=== PATIENT | male | born 1955 | race Caucasian/White ===

== ENCOUNTER 2018-01-03 10:03 | Outpatient (CLI) | payer BC, OTHER ==
[~2018-01-03 10:03] MED LIST: ASPI-84 PO; CETI10TA17 PO; KETO-22 PO; LISI10TA2 PO; LOSA100T7 PO; LRT10T PO; ORPH100T PO; TRM50T PO
== END 2018-01-03 10:30 | disposition home or self-care (01) ==
LOC: SLEEP 10:03
PROVIDERS: ATTEND Nurse Practitioner Family
DX: G47.10 Hypersomnia, unspecified (principal); G47.50 Parasomnia, unspecified; J30.2 Other seasonal allergic rhinitis; G47.30 Sleep apnea, unspecified

== ENCOUNTER 2018-01-10 10:00 | Outpatient (CLI) | payer OTHER ==
[~2018-01-10] VITALS: Ht 185.4 cm; Wt 122.5 kg
[2018-01-10] MEDS ORDERED: EMPA1TAB3 PO (10:37)
[2018-01-10] MEDS ORDERED: LOSA100T28 PO (10:37)
[2018-01-10] MEDS ORDERED: CETI10TA17 PO (10:37)
== END 2018-01-10 11:05 | disposition home or self-care (01) ==
LOC: PREOP 10:00
PROVIDERS: ATTEND Internal Medicine
DX: Z01.818 Encounter for other preprocedural examination (principal); R13.10 Dysphagia, unspecified

== ENCOUNTER 2018-10-11 05:31 | Outpatient (CLI) | payer OTHER ==
[~2018-10-11] VITALS: Ht 185.4 cm; Wt 122.5 kg
[~2018-10-11 05:31] MED LIST changes: +EMPA1TAB3 PO; +LOSA100T57 PO
[2018-10-11] MEDS ORDERED: LIFI1DRO OP (11:21)
== END 2018-10-11 11:25 | disposition home or self-care (01) ==
LOC: PREOP 05:31
PROVIDERS: ATTEND Specialist
DX: Z01.818 Encounter for other preprocedural examination (principal)

== ENCOUNTER 2018-10-13 08:19 | Day surgery (SDC) | payer OTHER ==
[~2018-10-13] VITALS: Ht 185.4 cm; Wt 122.5 kg
[~2018-10-13 08:19] MED LIST changes: +LIFI1DRO OP
--- OUTSIDE RECORDS SUMMARY | 2018-10-13 08:22 | XMS REPORT | Continuity of Care Document ---
Author Author [facility] Organization [facility] Address Unknown Phone Unavailable Allergies Active Description Code Type Severity Reaction Onset Reported/Identified Relationship to Patient Clinical Status Yes No Known Drug Allergies [id number] Drug Allergy Unknown N/A 12/11/2010 Medications There is no data. 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 02/04/2013 SMILEY OLGUIN DO Ot 722.52 LUMB/LUMBOSAC DISC DEGEN 02/04/2013 SMILEY OLGUIN DO Ot 782.0 SKIN SENSATION DISTURB 02/04/2013 ELVIRA OLGUIN DOA Aracely Ot 847.0 SPRAIN OF NECK 02/04/2013 ELVIRA OLGUIN DOA K Ot E000.8 OTHER EXTERNAL CAUSE STATUS 02/04/2013 SMILEY OLGUIN DO Ot E029.9 OTHER ACTIVITY 02/04/2013 SMILEY OLGUIN DO Ot E906.8 INJ NEC CAUSED BY ANIMAL 01/03/2018 RUSTAM BENITEZ ANIMAL CARE TECHNICIAN Ot G47.10 HYPERSOMNIA, UNSPECIFIED 01/03/2018 RUSTAM BENITEZ ANIMAL CARE TECHNICIAN Ot G47.30 SLEEP APNEA, UNSPECIFIED 01/03/2018 RUSTAM BENITEZ ANIMAL CARE TECHNICIAN Ot G47.50 PARASOMNIA, UNSPECIFIED 01/03/2018 RUSTAM BENITEZ ANIMAL CARE TECHNICIAN Ot J30.2 OTHER SEASONAL ALLERGIC RHINITIS 01/04/2018 RUSTAM BENITEZ APRN Ot G47.10 HYPERSOMNIA, UNSPECIFIED 01/04/2018 RUSTAM BENITEZ ANIMAL CARE TECHNICIAN Ot G47.30 SLEEP APNEA, UNSPECIFIED 01/04/2018 RUSTAM BENITEZ ANIMAL CARE TECHNICIAN Ot G47.50 PARASOMNIA, UNSPECIFIED 01/04/2018 RUSTAM BENITEZ ANIMAL CARE TECHNICIAN Ot J30.2 OTHER SEASONAL ALLERGIC RHINITIS 01/06/2018 SOHEILA VARGAS, MARCO ANTONIO Arriaga Ot R13.10 DYSPHAGIA, UNSPECIFIED 01/06/2018 SOHEILA VARGAS, MARCO ANTONIO Arriaga Ot Z01.818 ENCOUNTER FOR OTHER PREPROCEDURAL EXAMIN 01/10/2018 SOHEILA VARGAS, MARCO ANTONIO Arriaga Ot R13.10 DYSPHAGIA, UNSPECIFIED 01/10/2018 SOHEILA VARGAS, MARCO ANTONIO Arriaga Ot Z01.818 ENCOUNTER FOR OTHER PREPROCEDURAL EXAMIN 01/10/2018 SOHEILA VARGAS, MARCO ANTONIO Arriaga Ot R13.10 DYSPHAGIA, UNSPECIFIED 01/10/2018 SOHEILA VARGAS, MARCO ANTONIO Arriaga Ot Z01.818 ENCOUNTER FOR OTHER PREPROCEDURAL EXAMIN 01/10/2018 SOHEILA VARGAS, MARCO ANTONIO Arriaga Ot R13.10 DYSPHAGIA, UNSPECIFIED 01/10/2018 SOHEILA VARGAS, MARCO ANTONIO Arriaga Ot Z01.818 ENCOUNTER FOR OTHER PREPROCEDURAL EXAMIN 01/13/2018 SOHEILA VARGAS, MARCO ANTONIO Arriaga Ot E11.9 TYPE 2 DIABETES MELLITUS WITHOUT COMPLIC 01/13/2018 SOHEILA VARGAS, MARCO ANTONIO Arriaga Ot I10 ESSENTIAL (PRIMARY) HYPERTENSION 01/13/2018 SOHEILA VARGAS, MARCO ANTONIO Arriaga Ot K20.9 ESOPHAGITIS, UNSPECIFIED 01/13/2018 MARCO ANTONIO PARNELL MD Ot K44.9 DIAPHRAGMATIC HERNIA WITHOUT OBSTRUCTION 01/13/2018 SOHEILA VARGAS, MARCO ANTONIO Arriaga Ot R13.10 DYSPHAGIA, UNSPECIFIED 01/17/2018 SOHEILA VARGAS, MARCO ANTONIO Arriaga Ot E11.9 TYPE 2 DIABETES MELLITUS WITHOUT COMPLIC 01/17/2018 SOHEILA VARGAS, MARCO ANTONIO Arriaga Ot I10 ESSENTIAL (PRIMARY) HYPERTENSION 01/17/2018 SOHEILA VARGAS, MARCO ANTONIO Arriaga Ot K20.9 ESOPHAGITIS, UNSPECIFIED 01/17/2018 MARCO ANTONIO PARNELL MD Ot K44.9 DIAPHRAGMATIC HERNIA WITHOUT OBSTRUCTION 01/17/2018 MARCO ANTONIO PARNELL MD Ot R13.10 DYSPHAGIA, UNSPECIFIED 02/01/2018 SOHEILA VARGAS, MARCO ANTONIO Arriaga Ot E11.9 TYPE 2 DIABETES MELLITUS WITHOUT COMPLIC 02/01/2018 MARCO ANTONIO PARNELL MD Ot I10 ESSENTIAL (PRIMARY) HYPERTENSION 02/01/2018 MARCO ATNONIO PARNELL MD Ot K20.9 ESOPHAGITIS, UNSPECIFIED 02/01/2018 MARCO ANTONIO PARNELL MD Ot K44.9 DIAPHRAGMATIC HERNIA WITHOUT OBSTRUCTION 02/01/2018 MARCO ANTONIO PARNELL MD Ot R13.10 DYSPHAGIA, UNSPECIFIED 10/11/2018 MAURICIO VARGAS, AMANDEEP Phillips Ot Z01.818 ENCOUNTER FOR OTHER PREPROCEDURAL EXAMIN 10/12/2018 AMANDEEP MARTÍNEZ MD Ot Z01.818 ENCOUNTER FOR OTHER PREPROCEDURAL EXAMIN Procedures There is no data. Results Test Result Range Capillary blood glucose measurement by glucometer (mass/volume) - 01/13/18 07: 15 Capillary blood glucose measurement by glucometer (mass/volume) 127 mg/dL 70-110 Encounters ACCT No. Visit Date/Time Discharge Status Pt. Type Provider Facility Loc./Unit Complaint [id number] 01/13/2018 06:53:00 01/13/2018 09:25:00 DIS Outpatient MARCO ANTONIO PARNELL MD [facility] ENDO DYSPHAGIA [id number] 01/10/2018 10:00:00 01/10/2018 11:05:00 DIS Outpatient MARCO ANTONIO PARNELL MD [facility] PREOP EGD [id number] 01/03/2018 10:03:00 01/03/2018 10:30:00 DIS Outpatient RUSTAM BENITEZ APRN [facility] SLEEP HYPERSOMNIA [id number] 02/04/2013 10:02:00 02/04/2013 12:51:00 DIS Emergency SHARIF DO, SMILEY K [facility] ER RUN OVER BY CALF LOST FEELING IN ARMS AND LEGS [id number] 10/13/2018 08:19:00 ACT Outpatient AMANDEEP MARTÍNEZ MD [facility] SDC CATARACT RIGHT [id number] 10/11/2018 05:31:00 ACT Outpatient AMANDEEP MARTÍNEZ MD [facility] PREOP CATARACT RIGHT
--- OUTSIDE RECORDS SUMMARY | 2018-10-13 08:22 | XMS REPORT | Continuity of Care Document ---
Author Author [facility] Organization [facility] Address Unknown Phone Unavailable Care Team Providers Care Pack Operator Name Role Phone MARCO ANTONIO PARNELL MD PP Insurance Providers Payer Name Policy Number Subscriber Name Relationship [facility] [id number] Nolberto Conley 01 Self / Same As Patient Advance Directives Directive Response Recorded Date Advance Directives Y 02/04/13 10:12am Health Care Power of Sales Assoc Y 02/04/13 10:12am Organ Donor Y 02/04/13 10:12am Problems No Known Problems or Medical conditions. Social History History Response Recorded Date/Time Alcohol Use Occasionally Uses 02/04/13 10 :59am Recreational Drug Use N 02/04/13 10:12am Allergies, Adverse Reactions, Alerts Allergen Type Severity Reaction Last Updated No Known Drug Allergies 12/11/10 Medications Medication Dose Units Route Sig Qty Days Tramadol HCl (Ultram) 50 Mg PO Q4-6HOURS PRN 20 Ketorolac Tromethamine (Toradol) 10 Mg PO Q6H PRN 15 Orphenadrine Citrate (Norflex) 100 Mg PO BID 15 Cetirizine HCl (Cetirizine Hcl) 10 Mg PO DAILY Losartan Potassium 100 Mg PO DAILY Aspirin (Pierre) 81 Mg PO DAILY Ketorolac Tromethamine (Toradol) 10 Mg PO Q8H PRN 14 Loratadine (Claritin) 10 Mg PO DAILY Lisinopril 10 Mg PO DAILY Immunizations Name Given Type DTaP 02/04/13 A Response Recorded Date/Time Status not known Unknown Results No Known Relevant Diagnostic Tests, Laboratory Data and/or Discharge Summary. Procedures Procedure Code Date LESION REMOVAL COLONOSCOPY 64453 Encounters Encounter Location Date/Time Departed Emergency [facility] 10:02am
[2018-10-13] MEDS ORDERED: POVIDONE (BETADINE) OPHTH SOLN 5% 30 ML OP ONE (08:30)
[2018-10-13] MEDS ORDERED: LIDOCAINE PF 1% 2 ML AMP IR PRN (08:30)
[2018-10-13] MEDS ORDERED: MOXIFLOXACIN OPHTH SOLN 5 MG/ML 0.3 ML SYRINGE OP ONE (08:30)
[2018-10-13] MEDS ORDERED: TIMOLOL MALEATE 0.5% 5 ML (TIMOPTIC) BTL OU PRN (08:30)
[2018-10-13] MEDS: TETRACAINE 0.5% OPHTH SOLN 4 ML BTL (SINGLE DOSE ONLY) OU PRN ×4 (08:37→08:54)
[2018-10-13 08:41] VITALS: BP 125/85
[2018-10-13] MEDS: PHENYLEPHRINE 10% OPHTH (NEO-SYN) 5 ML BTL OU SCH ×3 (08:43→08:54)
[2018-10-13] MEDS: CYCLOPENTOLATE 1% (CYCLOGYL) 2 ML DROPS OP SCH ×3 (08:43→08:54)
--- NOTE | 2018-10-13 09:26 | Ophthalmologist Pre-Op Note ---
Pre-Operative Progress Note H&P Reviewed The H&P was reviewed, patient examined and no changes noted. Date H&P Reviewed: Oct 13, 2018 Time H&P Reviewed: 09:26 Pre-Op Dx Cataract, Right Eye AMANDEEP MARTÍNEZ MD Oct 13, 2018 09:26
[2018-10-13] MEDS ORDERED: MIDAZOLAM 2 MG/2 ML (VERSED) VIAL ONE (09:34)
[2018-10-13] MEDS ORDERED: acetaZOLAMIDE ER 500 MG CAP (DIAMOX SEQUELS) PO ONE (10:00)
--- NOTE | 2018-10-13 10:09 | Ophthalmology Operative Report ---
Cataract removal/placement IOL PREOPERATIVE DIAGNOSIS: Cataract Right Eye POSTOPERATIVE DIAGNOSIS: Cataract Right Eye PROCEDURE: Cataract removal and placement of posterior chamber implant, right eye SURGEON: Joseph Martínez ANESTHESIA: Topical with sedation COMPLICATIONS: None ESTIMATED BLOOD LOSS: Minimal DESCRIPTION OF PROCEDURE: After proper informed consent was obtained, the patient, a 63 male, was taken to the Operating Room and the right eye was anesthetized with tetracaine. The right eye was then prepped and draped in the usual manner. A wire lid speculum was placed. A paracentesis was made at the left hand position. Preservative free lidocaine was injected into the anterior chamber followed by viscoelastic. A clear corneal incision was made in the temporal position. A capsulorrhexis was preformed and the central nuclear and cortical material were removed. The posterior capsule was polished and Aaron [id number] 15.5 IOL was placed into the capsular bag. The residual viscoelastic was aspirated and balanced saline solution was injected into the anterior chamber. Moxifloxacin was injected into the anterior chamber. The wound was checked and found to be water tight. The patient tolerated the procedure well without complications. JOSEPH MARTÍNEZ MD Oct 13, 2018 10:09
[2018-10-13 10:17] VITALS: BP 133/78
--- NOTE | 2018-10-13 10:17 | Anesthesia-General Post-Op ---
MAC Patient Condition Mental Status/LOC: Same as Preop Cardiovascular: Satisfactory Nausea/Vomiting: Absent Respiratory: Satisfactory Pain: Controlled Complications: Absent Post Op Complications Complications None Follow Up Care/Instructions Patient Instructions None needed. Anesthesiology Discharge Order Discharge Order Patient is doing well, no complaints, stable vital signs, no apparent adverse anesthesia problems. No complications reported per nursing. DANNY CRONIN CRNA Oct 13, 2018 10:17
== END 2018-10-13 10:17 | disposition home or self-care (01) ==
LOC: SDC 08:19
PROVIDERS: ATTEND Specialist
DX: H25.11 Age-related nuclear cataract, right eye (principal); E11.36 Type 2 diabetes mellitus with diabetic cataract; E11.41 Type 2 diabetes mellitus with diabetic mononeuropathy; I10 Essential (primary) hypertension; G47.33 Obstructive sleep apnea (adult) (pediatric); Z79.899 Other long term (current) drug therapy

== ENCOUNTER 2018-11-08 05:41 | Outpatient (CLI) | payer OTHER | END 2018-11-08 16:00 | disposition home or self-care (01) | LOC: PREOP 05:41 | PROVIDERS: ATTEND Specialist | DX: Z01.818 Encounter for other preprocedural examination (principal) ==

== ENCOUNTER 2018-11-10 08:26 | Day surgery (SDC) | payer OTHER ==
[~2018-11-10] VITALS: Ht 185.4 cm; Wt 122.5 kg
[2018-11-10 08:30] VITALS: BP 123/75
[2018-11-10] MEDS: TETRACAINE 0.5% OPHTH SOLN 4 ML BTL (SINGLE DOSE ONLY) OU PRN ×4 (08:40→09:08)
[2018-11-10] MEDS ORDERED: TIMOLOL MALEATE 0.5% 5 ML (TIMOPTIC) BTL OU PRN (08:45)
[2018-11-10] MEDS ORDERED: LIDOCAINE PF 1% 2 ML AMP IR PRN (08:45)
[2018-11-10] MEDS ORDERED: MOXIFLOXACIN OPHTH SOLN 5 MG/ML 0.3 ML SYRINGE OP ONE (08:45)
[2018-11-10] MEDS ORDERED: POVIDONE (BETADINE) OPHTH SOLN 5% 30 ML OP ONE (08:45)
[2018-11-10] MEDS: CYCLOPENTOLATE 1% (CYCLOGYL) 2 ML DROPS OP SCH ×3 (08:51→09:08)
[2018-11-10] MEDS: PHENYLEPHRINE 10% OPHTH (NEO-SYN) 5 ML BTL OU SCH ×3 (08:51→09:08)
[2018-11-10] MEDS ORDERED: MIDAZOLAM 2 MG/2 ML (VERSED) VIAL ONE (09:08)
--- NOTE | 2018-11-10 09:15 | Ophthalmologist Pre-Op Note ---
Pre-Operative Progress Note H&P Reviewed The H&P was reviewed, patient examined and no changes noted. Date H&P Reviewed: Nov 10, 2018 Time H&P Reviewed: 09:14 Pre-Op Dx Cataract, Left Eye AMANDEEP MARTÍNEZ MD Nov 10, 2018 09:15
--- NOTE | 2018-11-10 09:48 | Ophthalmology Operative Report ---
Cataract removal/placement IOL PREOPERATIVE DIAGNOSIS: Cataract Left Eye POSTOPERATIVE DIAGNOSIS: Cataract Left Eye PROCEDURE: Cataract removal and placement of posterior chamber implant, left eye SURGEON: Joseph Martínez ANESTHESIA: Topical with sedation COMPLICATIONS: None ESTIMATED BLOOD LOSS: Minimal DESCRIPTION OF PROCEDURE: After proper informed consent was obtained, the patient, a 63 male, was taken to the Operating Room and the left eye was anesthetized with tetracaine. The left eye was then prepped and draped in the usual manner. A wire lid speculum was placed. A paracentesis was made at the left hand position. Preservative free lidocaine was injected into the anterior chamber followed by viscoelastic. A clear corneal incision was made in the temporal position. A capsulorrhexis was preformed and the central nuclear and cortical material were removed. The posterior capsule was polished and an Aaron [id number] 15.5 was placed into the capsular bag. The residual viscoelastic was aspirated and balanced saline solution was injected into the anterior chamber. Moxifloxacin was injected into the anterior chamber. The wound was checked and found to be water tight. The patient tolerated the procedure well without complications. JOSEPH MARTÍNZE MD Nov 10, 2018 09:48
[2018-11-10 09:55] VITALS: BP 124/83
[2018-11-10] MEDS ORDERED: acetaZOLAMIDE ER 500 MG CAP (DIAMOX SEQUELS) PO ONE (10:00)
--- OUTSIDE RECORDS SUMMARY | 2018-11-10 10:14 | XMS REPORT | Continuity of Care Document ---
Author Organization Unknown Address Unknown Allergies Active Description Code Type Severity Reaction Onset Reported/Identified Relationship to Patient Clinical Status Yes No Known Drug Allergies [id number] Drug Allergy Unknown N/A 12/11/2010 Medications There is no data. 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 02/04/2013 SMILEY OLGUIN DO Ot 722.52 LUMB/LUMBOSAC DISC DEGEN 02/04/2013 SMILEY OLGUIN DO Ot 782.0 SKIN SENSATION DISTURB 02/04/2013 SMILEY OLGUIN DO Ot 847.0 SPRAIN OF NECK 02/04/2013 SMILEY OLGUIN DO Ot E000.8 OTHER EXTERNAL CAUSE STATUS 02/04/2013 SMILEY OLGUIN DO Ot E029.9 OTHER ACTIVITY 02/04/2013 SMILEY OLGUIN DO Ot E906.8 INJ NEC CAUSED BY ANIMAL 01/03/2018 RUSTAM BENITEZ APRN Ot G47.10 HYPERSOMNIA, UNSPECIFIED 01/03/2018 RUSTAM BENITEZ APRN Ot G47.30 SLEEP APNEA, UNSPECIFIED 01/03/2018 RUSTAM BENITEZ APRN Ot G47.50 PARASOMNIA, UNSPECIFIED 01/03/2018 RUSTAM BENITEZ APRN Ot J30.2 OTHER SEASONAL ALLERGIC RHINITIS 01/04/2018 RUSTAM BENITEZ APRN Ot G47.10 HYPERSOMNIA, UNSPECIFIED 01/04/2018 RUSTAM BENITEZ APRN Ot G47.30 SLEEP APNEA, UNSPECIFIED 01/04/2018 RUSTAM BENITEZ APRN Ot G47.50 PARASOMNIA, UNSPECIFIED 01/04/2018 RUSTAM BENITEZ APRN Ot J30.2 OTHER SEASONAL ALLERGIC RHINITIS 01/06/2018 [...] ANTONIO Arriaga Ot K20.9 ESOPHAGITIS, UNSPECIFIED 01/13/2018 SOHEILA VARGAS, MARCO ANTONIO Arriaga Ot K44.9 DIAPHRAGMATIC HERNIA WITHOUT OBSTRUCTION 01/13/2018 SOHEILA VARGAS, MARCO ANTONIO Arriaga Ot R13.10 DYSPHAGIA, UNSPECIFIED 01/17/2018 SOHEILA VARGAS, MARCO ANTONIO Arriaga Ot E11.9 TYPE 2 DIABETES MELLITUS WITHOUT COMPLIC 01/17/2018 SOHEILA VARGAS, MARCO ANTONIO Arriaga Ot I10 ESSENTIAL (PRIMARY) HYPERTENSION 01/17/2018 SOHEILA VARGAS, MARCO ANTONIO Arriaga Ot K20.9 ESOPHAGITIS, UNSPECIFIED 01/17/2018 SOHEILA VARGAS, MARCO ANTONIO Arriaga Ot K44.9 DIAPHRAGMATIC HERNIA WITHOUT OBSTRUCTION 01/17/2018 SOHEILA VARGAS, MARCO ANTONIO Arriaga Ot R13.10 DYSPHAGIA, UNSPECIFIED 02/01/2018 SOHEILA VARGAS, MARCO ANTONIO Arriaga Ot E11.9 TYPE 2 DIABETES MELLITUS WITHOUT COMPLIC 02/01/2018 SOHEILA VARGAS, MARCO ANTONIO Arriaga Ot I10 ESSENTIAL (PRIMARY) HYPERTENSION 02/01/2018 SOHEILA VARGAS, MARCO ANTONIO Arriaga Ot K20.9 ESOPHAGITIS, UNSPECIFIED 02/01/2018 SOHEILA VARGAS, MARCO ANTONIO Arriaga Ot K44.9 DIAPHRAGMATIC HERNIA WITHOUT OBSTRUCTION 02/01/2018 SOHEILA VARGAS, MARCO ANTONIO Arriaga Ot R13.10 DYSPHAGIA, UNSPECIFIED 10/11/2018 MAURICIO VARGAS, AMANDEEP Phillips Ot Z01.818 ENCOUNTER FOR OTHER PREPROCEDURAL EXAMIN 10/12/2018 AMANDEEP MARTÍNEZ MD Ot Z01.818 ENCOUNTER FOR OTHER PREPROCEDURAL EXAMIN 10/13/2018 AMANDEEP MARTÍNEZ MD Ot E11.36 TYPE 2 DIABETES MELLITUS WITH DIABETIC C 10/13/2018 AMANDEEP MARTÍNEZ MD Ot E11.41 TYPE 2 DIABETES MELLITUS WITH DIABETIC M 10/13/2018 AMANDEEP MARTÍNEZ MD Ot G47.33 OBSTRUCTIVE SLEEP APNEA (ADULT) (PEDIATR 10/13/2018 AMANDEEP MARTÍNEZ MD Ot H25.11 AGE-RELATED NUCLEAR CATARACT, RIGHT EYE 10/13/2018 AMANDEEP MARTÍNEZ MD Ot I10 ESSENTIAL (PRIMARY) HYPERTENSION 10/13/2018 AMANDEEP MARTÍNEZ MD Ot Z79.899 OTHER ANAESTHETIC TECHNICIAN (CURRENT) DRUG THERAPY 10/16/2018 AMANDEEP MARTÍNEZ MD Ot E11.36 TYPE 2 DIABETES MELLITUS WITH DIABETIC C 10/16/2018 AMANDEEP MARTÍNEZ MD Ot E11.41 TYPE 2 DIABETES MELLITUS WITH DIABETIC M 10/16/2018 AMANDEEP MARTÍNEZ MD Ot G47.33 OBSTRUCTIVE SLEEP APNEA (ADULT) (PEDIATR 10/16/2018 AMANDEEP MARTÍNEZ MD Ot H25.11 AGE-RELATED NUCLEAR CATARACT, RIGHT EYE 10/16/2018 AMANDEEP MARTÍNEZ MD Ot I10 ESSENTIAL (PRIMARY) HYPERTENSION 10/16/2018 AMANDEEP MARTÍNEZ MD Ot Z79.899 OTHER SHELTER (CURRENT) DRUG THERAPY 11/08/2018 AMANDEEP MARTÍNEZ MD Ot Z01.818 ENCOUNTER FOR OTHER PREPROCEDURAL EXAMIN Procedures There is no data. Results Test Result Range Capillary blood glucose measurement by glucometer (mass/volume) - 01/13/18 07: 15 Capillary blood glucose measurement by glucometer (mass/volume) 127 mg/dL 70-110 Encounters ACCT No. Visit Date/Time Discharge Status Pt. Type Provider Facility Loc./Unit Complaint [id number] 11/08/2018 05:41:00 11/08/2018 16:00:00 DIS Outpatient AMANDEEP MARTÍNEZ MD [facility] PREOP CATARACT LEFT [id number] 10/13/2018 08:19:00 10/13/2018 23:59:59 CLS Outpatient AMANDEEP MARTÍNEZ MD [facility] SDC CATARACT RIGHT [id number] 10/11/2018 05:31:00 10/11/2018 23:59:59 CLS Outpatient AMANDEEP MARTÍNEZ MD [facility] PREOP CATARACT RIGHT [id number] 01/13/2018 06:53:00 01/13/2018 09:25:00 DIS Outpatient MARCO ANTONIO PARNELL MD [facility] ENDO DYSPHAGIA [id number] 01/10/2018 10:00:00 01/10/2018 11:05:00 DIS Outpatient MARCO ANTONIO PARNELL MD [facility] PREOP EGD [id number] 01/03/2018 10:03:00 01/03/2018 10:30:00 DIS Outpatient RUSTAM BENITEZ APRN [facility] SLEEP HYPERSOMNIA [id number] 02/04/2013 10:02:00 02/04/2013 12:51:00 DIS Emergency SHARIF SMILEY CHRISTIANSON [facility] ER RUN OVER BY CALF LOST FEELING IN ARMS AND LEGS [id number] 11/10/2018 08:26:00 ACT Outpatient [facility]
--- NOTE | 2018-11-10 12:12 | Anesthesia-General Post-Op ---
MAC Patient Condition Mental Status/LOC: Same as Preop Cardiovascular: Satisfactory Nausea/Vomiting: Absent Respiratory: Satisfactory Pain: Controlled Complications: Absent Post Op Complications Complications None Follow Up Care/Instructions Patient Instructions None needed. Anesthesiology Discharge Order Discharge Order Patient is doing well, no complaints, stable vital signs, no apparent adverse anesthesia problems. No complications reported per nursing. DANNY CRONIN CRNA Nov 10, 2018 12:12
== END 2018-11-10 09:55 | disposition home or self-care (01) ==
LOC: SDC 08:26
PROVIDERS: ATTEND Specialist
DX: H25.12 Age-related nuclear cataract, left eye (principal); E11.36 Type 2 diabetes mellitus with diabetic cataract; E11.41 Type 2 diabetes mellitus with diabetic mononeuropathy; G47.33 Obstructive sleep apnea (adult) (pediatric); Z79.899 Other long term (current) drug therapy

== ENCOUNTER → 2022-09-13 | Outpatient (CLI) | payer OTHER | LOC: CARD 11:30 | PROVIDERS: ATTEND Internal Medicine | DX: R55 Syncope and collapse (principal); E11.9 Type 2 diabetes mellitus without complications | CPT/HCPCS: 93005 ==

== ENCOUNTER 2022-10-28 12:45 | Outpatient (CLI) | payer MEDICARE, OTHER ==
[~2022-10-28] VITALS: Ht 182.9 cm; Wt 104.5 kg
[2022-10-28] MEDS ORDERED: LOSA25TA41 PO (13:20)
[2022-10-28] MEDS ORDERED: EMPA25TA PO (13:20)
[2022-10-28] MEDS ORDERED: PREG75CA PO (13:20)
[2022-10-28] MEDS ORDERED: DULA1.5P2 SQ (13:20)
[2022-10-28 14:01] LABS: BILIRUBIN,URINE NEGATIVE (NEGATIVE); CLARITY,URINE CLEAR; COLOR,URINE YELLOW; GLUCOSE, URINE (UA) 3+ (NEGATIVE); KETONES,URINE NEGATIVE (NEGATIVE); LEUKOCYTE ESTERASE ,URINE NEGATIVE (NEGATIVE); NITRITE,URINE NEGATIVE (NEGATIVE); PROTEIN,URINE NEGATIVE (NEGATIVE)
[2022-10-28 14:02] LABS: BASOPHILS # (AUTO) 0.1 10^3/uL (0.0-0.1); BASOPHILS % (AUTO) 1 % (0-10); EOSINOPHILS # (AUTO) 0.3 10^3/uL (0.0-0.3); EOSINOPHILS % (AUTO) 3 % (0-10); HEMATOCRIT 51 % (40-54); HEMOGLOBIN 17.8 g/dL (13.3-17.7); LYMPHOCYTES # (AUTO) 2.3 10^3/uL (1.0-4.0); LYMPHOCYTES % (AUTO) 26 % (12-44); MEAN CORPUSCULAR HEMOGLOBIN 30 pg (25-34); MEAN CORPUSCULAR HGB CONC 35 g/dL (32-36); MEAN CORPUSCULAR VOLUME 86 fL (80-99); MEAN PLATELET VOLUME 9.4 fL (9.0-12.2); MONOCYTES # (AUTO) 0.6 10^3/uL (0.0-1.0); MONOCYTES % (AUTO) 7 % (0-12); NEUTROPHILS # (AUTO) 5.7 10^3/uL (1.8-7.8); NEUTROPHILS % (AUTO) 63 % (42-75); PLATELET COUNT 233 10^3/uL (130-400); WHITE BLOOD COUNT 9.1 10^3/uL (4.3-11.0)
[2022-10-28 14:04] VITALS: BP 130/86
[2022-10-28 14:09] LABS: BACTERIA,URINE TRACE /HPF; SQUAMOUS EPITHELIAL CELL,UR 0-2 /HPF
[2022-10-28 14:10] LABS: ALBUMIN 4.4 GM/DL (3.2-4.5); POTASSIUM 3.8 MMOL/L (3.6-5.0)
[2022-10-28 14:11] LABS: CALCIUM 9.9 MG/DL (8.5-10.1)
[2022-10-28 14:12] LABS: TOTAL PROTEIN 7.4 GM/DL (6.4-8.2)
[2022-10-28 14:14] LABS: BILIRUBIN,TOTAL 1.7 MG/DL (0.1-1.0)
[2022-10-28 14:16] LABS: CREATININE SERUM 0.86 MG/DL (0.60-1.30)
[2022-10-28 14:33] LABS: PROTHROMBIN TIME PATIENT 13.8 SEC (12.2-14.7)
[2022-10-28 14:41] LABS: ERYTHROCYTE SEDIMENTATION RATE 1 MM/HR (0-30)
--- NOTE | 2022-10-28 16:01 | Diagnostic Imaging Report ---
INDICATION: Preop for knee replacement. PA and lateral chest obtained at 2:01 p.m. Heart and mediastinal silhouette are normal in appearance. The lungs are clear. There is no pneumothorax or pleural fluid. IMPRESSION: Negative chest. Dictated by: Dictated on workstation # [id number]
== END 2022-10-28 16:42 ==
LOC: PREOP 12:45
PROVIDERS: ATTEND Orthopaedic Surgery
DX: Z01.818 Encounter for other preprocedural examination (principal); M17.11 Unilateral primary osteoarthritis, right knee
CPT/HCPCS: 36415; 71046; 80053; 81000; 85025; 85610; 85652; 86850; 86900; 86901; 87081

== ENCOUNTER 2022-11-03 06:00 | Inpatient (IN) | payer OTHER, MEDICARE ==
--- NOTE | 2022-10-28 08:17 | HISTORY AND PHYSICAL ---
DATE OF SERVICE: 11/03/2022 This will be for inpatient admission on 11/03/2022 for right total knee arthroplasty. The patient will require regular inpatient admission due to pain control issues and need for physical therapy and gait abnormalities. HISTORY: The patient is a 67-year-old gentleman with longstanding progressive knee pain. He reports right worse than left knee +pain. Radiographs reveal severe medial and patellofemoral arthrosis. He has undergone treatment with injections as well as arthroscopy without relief. Due to functional impairment and failure to improve with conservative measures, the patient elected to proceed with surgical intervention. REVIEW OF SYSTEMS: No chest pain, no shortness of breath. No dysuria. PAST MEDICAL HISTORY: Neck degenerative disk disease, bilateral knee arthritis. PAST SURGICAL HISTORY: Bilateral knee arthroscopy, cervical fusion, eye surgery, ear surgery. FAMILY HISTORY: Unknown. PRIMARY CARE PROVIDER: Dr. Bustillos. MEDICATIONS: Losartan, Jardiance, Claritin, and Trulicity. PAST MEDICAL HISTORY: Significant for hypertension and diabetes. ALLERGIES: NO KNOWN DRUG ALLERGIES. SOCIAL HISTORY: The patient denies alcohol or tobacco use. PHYSICAL EXAMINATION: GENERAL: The patient is well-developed, well-nourished, in no acute distress. HEENT: Normocephalic, atraumatic. Pupils equal, round, react to light. Oropharynx is clear. NECK: Supple. No lymphadenopathy. LUNGS: Clear to auscultation bilaterally. HEART: Regular rate and rhythm. ABDOMEN: Soft, nontender, nondistended. EXTREMITIES: The right knee demonstrates range of motion 0/5/120. There is no varus or valgus laxity. Negative anterior and posterior drawer. There is a slight effusion. There is no erythema or warmth. IMPRESSION: Severe right knee osteoarthritis, unresponsive to conservative measures. PLAN: Right total knee arthroplasty. The risks, benefits, options, ramifications and recovery have been discussed at length with the patient. He understands and wishes to proceed. This will be for inpatient admission on 11/03/2022. Job ID: [id number] DocumentID: [id number] Dictated Date: 10/18/2022 09:55:07 Director Law Enforcement Date: 10/18/2022 11:09:00 Dictated By: GOLD WHITNEY MD
[~2022-11-03] VITALS: Ht 182.9 cm; Wt 110.6 kg
[2022-11-03] VITALS (8 sets, daily range): BP systolic 112–139; BP diastolic 58–86
[~2022-11-03 06:00] MED LIST changes: +DULA1.5P2 SQ; +EMPA25TA PO; +LOSA25TA41 PO; +PREG75CA PO
[2022-11-03] MEDS ORDERED: CEFUROXIME 1.5 GM/15 ML (ZINACEF) VIAL ONE (06:42)
[2022-11-03] MEDS ORDERED: NS (IVPB) 50 ML ONE (06:43)
[2022-11-03] MEDS ORDERED: BUPIVACAINE 0.5% 30 ML (SENSORCAINE) VIAL ONE (07:10)
[2022-11-03] MEDS ORDERED: PROPOFOL INJECTION 0 ML IV ONE (07:10)
[2022-11-03] MEDS ORDERED: MIDAZOLAM 2 MG/2 ML (VERSED) VIAL ONE (07:10)
[2022-11-03] MEDS ORDERED: ONDANSETRON 4 MG/2 ML (SDV) Z0FRAN IVP PRN ×2 (07:15→10:00)
[2022-11-03] MEDS ORDERED: diphenhydrAMINE 50 MG/ML INJ (BENADRYL) IVP PRN (07:15)
[2022-11-03] MEDS ORDERED: morphine PCA 100 MG/100 ML BAG IV PRN (07:15)
[2022-11-03] MEDS ORDERED: NALOXONE 0.4 MG/ML 1 ML (NARCAN) VIAL IV PRN (07:15)
[2022-11-03] MEDS ORDERED: INTRA-ARTICULAR IU ONE ×5 (07:30)
--- NOTE | 2022-11-03 07:38 | Progress Note-Post Operative ---
Post-Operative Progess Note Surgeon (s)/Icer Air Conditioning (s) Surgeon GOLD WHITNEY MD [employer]ing: Farhan Kim Pre-Operative Diagnosis right knee primary osteoarthritis Post-Operative Diagnosis right knee primary osteoarthritis Procedure & Operative Findings Date of Procedure 11/03/22 Procedure Performed/Findings right total knee arthroplasty Anesthesia Type spinal Estimated Blood Loss Estimated blood loss (mL): minimal Specimens/Packing Specimens Removed none Packing: none GOLD WHITNEY MD Nov 03, 2022 07:38
--- NOTE | 2022-11-03 07:38 | Progress Note-Pre Operative ---
Pre-Operative Progress Note Date of Available H&P: Oct 18, 2022 Date H&P Reviewed: Nov 03, 2022 Time H&P Reviewed: 07:11 Changes from last HP none Pre-Operative Diagnosis: right knee primary osteoarthritis GOLD WHITNEY MD Nov 03, 2022 07:38
--- NOTE | 2022-11-03 07:40 | D/C HH Face to Face Order ---
D/C Face to Face Orders Reconcile Patient Problems Problems Reviewed?: Yes Instructions for Patient [facility], Patient Instructions/FollowUp: three weeks Physician to follow Patient: three weeks Discharge Diet for Home: Regular Diet Patient Data-Allergies,Ht & Wt Patient Allergies: Coded Allergies: No Known Drug Allergies (Unverified , 10/28/22) Height (Feet): 6 Height (Inches): 1.00 Weight (Pounds): 270 Weight (Ounces): 0.0 Home Health Need/Face to Face Date of Face to Face: Nov 03, 2022 Clinical Findings: Muscle weakness, Pain with ambulation, Unsteady gait I have seen Pt [id number]: Yes Discharged To: Home Diagnosis/Conditions: right total knee arthroplasty Patient is Homebound due to: Muscle weakness, Pain w/ambulation Homebound Status Due to the above stated illness, injury or surgical procedure (medical condition or diagnosis) and associated clinical findings, the patient is homebound because of his/her inability to leave home except with aid of a supportive device and/or person AND leaving the home requires a considerable and taxing effort or is medically contraindicated. Pt req the following assistanc: [facility] Nursing Orders Home Health Services Order: Physical Therapy-Evaluate & Treat DC right knee see and apply steri strips on 11/17/22 Therapy Orders Therapy Orders: Physical Therapy, PT to assess for OT Therapy Specific Orders: Eval assistive deivces, Teach enviro modifications/safety, Gait training, Increase strength/endurance, Provider maintenance therapy, Restore ROM Certify Stmt I certify that this patient is under my care and that I, a nurse practitioner or a physician; a assistant store director working with me, had a face to face encounter that - meets the physician face to face encounter requirements with this patient as dated. GOLD WHITNEY MD Nov 03, 2022 07:40
[2022-11-03] MEDS ORDERED: fentaNYL INJ 100 MCG/2 ML AMP ONE (08:16)
[2022-11-03] MEDS ORDERED: SEVOFLURANE (ULTANE) 15 ML INHAL SOLN ONE ×2 (08:24→09:45)
[2022-11-03] MEDS ORDERED: ONDANSETRON 4 MG/2 ML (SDV) Z0FRAN ONE (08:24)
[2022-11-03] MEDS ORDERED: TRANEXAMIC ACID 100 MG/ML 10 ML INJECTION ONE (08:33)
--- NOTE | 2022-11-03 09:57 | Anesthesia-General Post-Op ---
General Patient Condition Mental Status/LOC: Same as Preop Cardiovascular: Satisfactory Nausea/Vomiting: Absent Respiratory: Satisfactory Pain: Controlled Complications: Absent Post Op Complications Complications None Follow Up Care/Instructions Patient Instructions None needed. Anesthesia/Patient Condition Patient Condition Patient is doing well, no complaints, stable vital signs, no apparent adverse anesthesia problems. No complications reported per nursing. NOEL COLEMAN CRNA Nov 03, 2022 09:57
[2022-11-03] MEDS ORDERED: morphine INJ 10 MG/ML 1ML (SYR OR VIAL) IVP ONE (10:00)
[2022-11-03] MEDS ORDERED: HYDROmorphone 2 MG/ML VIAL (DILAUDID) IV ONE (10:00)
[2022-11-03] MEDS ORDERED: MEPERIDINE (DEMEROL) INJ 50 MG/ML IVP ONE (10:00)
[2022-11-03] MEDS ORDERED: PROMETHAZINE INJ 25 MG/ML (PHENERGAN) AMP IVP ONE (10:00)
[2022-11-03] MEDS ORDERED: ROPIVACAINE 5MG/ML 30ML VIAL ONE (10:09)
[2022-11-03] MEDS ORDERED: HYDROmorphone 2 MG/ML VIAL (DILAUDID) ONE (10:12)
[2022-11-03] MEDS ORDERED: MEPERIDINE (DEMEROL) INJ 50 MG/ML ONE (10:23)
[2022-11-03] MEDS: oxyCODONE/APAP 5/325MG (PERCOCET 5) TABLET PO PRN ×3 (11:46→20:18)
[2022-11-03] MEDS: SENNA W/DOCUSATE (SENOKOT S) TABLET PO SCH ×2 (11:46→20:18)
[2022-11-03] MEDS: NS IV 1000 ML 1,000 ML IV SCH ×2 (11:47→19:57)
--- NOTE | 2022-11-03 11:56 | Diagnostic Imaging Report ---
INDICATION: Status post knee replacement COMPARISON: None. FINDINGS: Two views of the right knee were obtained. Expected postoperative changes are seen from right knee total arthroplasty. Femoral and tibial components appear well-seated. There is no evidence of periprosthetic fracture. There is a small amount of subcutaneous emphysema in the soft tissues over the knee. Skin see are seen centrally over the anterior aspect of the knee. No unexpected radiopaque foreign bodies are identified. IMPRESSION: Expected postsurgical changes from right knee total arthroplasty, as described above. No unexpected radiopaque foreign bodies. Dictated by: Dictated on workstation # [id number]
--- NOTE | 2022-11-03 12:01 | Progress Note ---
Standard Progress Note Progress Notes/Assess & Plan Date Seen by a Provider: Nov 03, 2022 Time Seen by a Provider: 11:59 Progress/Assessment & Plan post op check no complaints radiographs--HW well positioned without fracture RLE--equal DP pulse with brisk cap refill intact DF and PF of toes and ankle sensation intact to light touch throughout s/p RKTA mobilize as able GOLD WHITNEY MD Nov 03, 2022 12:01
--- NOTE | 2022-11-03 14:50 | Physical Therapy Evaluation ---
PT Evaluation-General Medical Diagnosis Admission Date Nov 03, 2022 at 06:00 Medical Diagnosis: RTKA Onset Date: Nov 03, 2022 Therapy Diagnosis Therapy Diagnosis: Gait deficit, strength deficit Height/Weight Height (Feet): 6 Height (Inches): 1.00 Weight (Pounds): 270 Weight (Ounces): 0.0 Precautions Precautions/Isolations: Fall Prevention Weight Bear Status Right Lower Extremity: Right Weight Bearing/Tolerated Left Lower Extremity: Left Full Weight Bearing Referral Physician: Dr. Wei Reason for Referral: Evaluation/Treatment Social History Home: [facility] Current Living Status: Spouse Entry Into Home: Stairs With Railing PT Steps Into Home: 3 PT Steps Inside Home: 14 Prior Prior Level of Function SCALE: Activities may be completed with or without assistive devices. 0-Vlzfzteysu-aiiukeo completes the activity by him/herself with no assistance from a helper. 5-Set-up or Clean-up Assistance-helper sets up or cleans up; patient completes activity. [place] assists only prior to or following the activity. 4-Supervision or Touching Assistance-helper provides verbal cues and/or touching/steadying and/or contact guard assistance as patient completes activity. Assistance may be provided throughout the activity or intermittently. 3-Partial/Moderate Assistance-helper does LESS THAN HALF the effort. [place] lifts, holds or supports trunk or limbs, but provides less than half the effort. 2-Substantial/Maximal Assistance-helper does MORE THAN HALF the effort. [place] lifts or holds trunk or limbs and provides more than half the effort. 3-Fnrrywako-retsus does ALL the effort. Patient does none of the effort to comp lete the activity. Or, the assistance of 2 or more helpers is required for the patient to complete the activity. If activity was not attempted, code reason: 7-Patient Refused. 9-Not Applicable-not attempted and the patient did not perform the activity before the current illness, exacerbation or injury. 10-Not Attempted due to Environmental Limitations-(lack of equipment, weather restraints, etc.). 88-Not Attempted due to Medical Conditions or Safety Concerns. Bed Mobility: 6 Transfers (B,C,W/C): 6 Gait: 6 Stairs: 6 Indoor Mobility (Ambulation): Independent Stairs: Independent Prior Devices Use: None PT Evaluation-Current Subjective Patient lying supine in bed upon PT arrival, agreeable to treatment. Patient rates pain at 5/10 in right knee. Objective Patient Orientation: Person, Place, Time, Situation ROM/Strength ROM Lower Extremities Right knee 10 degrees from neutral in extension, 85 degrees flexion. All other ROMs WFLs BLEs Strength Lower Extremities Right knee flex/ext N/A. All other Right and Left LE planes 5/5 Sensory Vision: Wears Glasses Hearing: Functional Sensation Right Lower Extremit: Intact Sensation Left Lower Extremity: Intact Transfers Roll Left to Right (QC): 4 Sit to Lying (QC): 4 Lying to Sitting/Side of Bed(Q: 4 Sit to Stand (QC): 4 Chair/Blr-nv-Ukcmm Xfer(QC): 4 Gait Does the Patient Walk?: Yes Mode of Locomotion: Walk Anticipated Mode of Locomotion: Walk Walk 10 feet (QC): 4 Distance: 15 Gait Assistive Device: FWW Balance Sitting Static: Good Sitting Dynamic: Good Standing Static: Fair Standing Dynamic: Fair Assessment/Needs Patient tolerated treatment well. Performs all observed bed mobility and transfers with SBA. Patient ambulates 15 feet with FWW, with CGA and verbal cues for use of the FWW, weight bearing and safety. Patient in chair post treatment with all needs met, nursing notified, call light in reach and family in the room. Rehab Potential: Good Equipment Needs FWW PT Mcc Goals Mcc Goals PT Design Chief Goals Time Frame: Nov 20, 2022 Roll Left & Right (QC): 6 Sit to Lying (QC): 6 Lying-Sitting on Side/Bed(QC): 6 Sit to Stand (QC): 6 Chair/Aon-lx-Aliei Xfer(QC): 6 Toilet Transfer (QC): 6 Car Transfer (QC): 6 Does the Patient Walk: Yes Walk 10 feet (QC): 6 Walk 50ft with 2 Turns (QC): 6 Walk 150 ft (QC): 4 1 Step (curb) (QC): 4 4 Steps (QC): 4 12 Steps (QC): 4 PT Plan Problem List Problem List: Activity Tolerance, Functional Strength, Safety, Balance, Gait, Transfer, Bed Mobility, ROM Treatment/Plan Treatment Plan: Continue Plan of Care Treatment Plan: Bed Mobility, Education, Functional Activity Theresa, Functional Strength, Group Therapy, Gait, Safety, Therapeutic Exercise, Transfers Treatment Duration: Nov 20, 2022 Frequency: 11 times per week Estimated Hrs Per Day: .25 hour per day Patient and/or Family Agrees t: Yes Safety Risks/Education Patient Education: Gait Training, Transfer Techniques Teaching Recipient: Patient, Family Teaching Methods: Demonstration, Discussion Response to Teaching: Verbalize Understanding, Return Demonstration Time Time In: 1336 Time Out: 1356 DATE: Nov 03, 2022 Total Billed Treatment Time: 20 Total Billed Treatment Visit, ASHER CAMARENA PT Nov 03, 2022 14:50
--- NOTE | 2022-11-03 16:22 | OPERATIVE REPORT ---
DATE OF SERVICE: 11/03/2022 PREOPERATIVE DIAGNOSIS: Right knee primary osteoarthritis. POSTOPERATIVE DIAGNOSIS: Right knee primary osteoarthritis. PROCEDURE: Right total knee arthroplasty. SURGEON: Kelby Whitney MD CHRONIC DISEASE EPIDEMIOLOGIST: Farhan Kim, who assisted throughout the procedure and closed the incision. ANESTHESIA: General endotracheal by Cliff Cameron CRNA. TOURNIQUET TIME: Approximately 70 minutes at 300 mmHg. ESTIMATED BLOOD LOSS: Minimal. DRAINS: None. COMPLICATIONS: None. POSTOPERATIVE PLAN: Routine total knee arthroplasty protocol. MATERIALS: MicroPort cemented size 7 femur, cemented size 7 tibia with 10 mm insert and cemented size 35 patellar button. STATEMENT OF MEDICAL NECESSITY: The patient is a 67-year-old active gentleman with progressively worsening right knee pain. Radiographs revealed severe tricompartmental osteoarthritis. He has undergone treatment with injections, anti-inflammatories and rest without relief. He reported progressive loss of function. Because of this, elected to proceed with surgical intervention. DESCRIPTION OF PROCEDURE: After risks and benefits of the procedure were discussed and questions were answered and informed consent was signed and placed on the chart, the operative site was confirmed in the preoperative holding area and initialed by the surgeon. The patient was then transported to the operating room and after adequate levels of general endotracheal anesthetic were obtained, the right lower extremity was prepped and draped in the usual sterile fashion. A timeout was called prior to the skin incision. With the leg elevated, the tourniquet was inflated to 300 mmHg. Standard anterior approach was utilized. Hemostasis was obtained with cautery. Medial parapatellar arthrotomy was performed, leaving 1 cm cuff on the patella for later reattachment. A portion of the fat pad was resected. A subperiosteal release was performed on the proximal medial tibia, being careful to stay on the bony surface. The ACL was resected. The intramedullary guide was passed into the femoral canal. The patient had a 10-degree flexion contracture. Therefore, the distal cut was placed at 12 mm. The sizing guide was placed and the femur sized to a size 7. The 7 cutting block was placed parallel to the epicondylar axis and cuts were made from posterior to anterior. Subperiosteal release was then carefully performed on the posterior distal femur, being careful to stay on the bony surface. The intramedullary guide was then passed into the tibia. The drop corbin transected the intermalleolar axis. The cut was made and the femur was sized to a size 7. The 7 cutting block was placed and the drop corbin transected the intermalleolar axis. The femoral trial was placed and trochlear cut was made. The patella was then prepared by resecting 10 mm off the undersurface and the peg hole guide was placed and peg holes were drilled. The knee was tight in flexion and extension. An additional 2 mm was taken off the tibia. The 10 mm insert was then placed with 35 mm patellar button trial and full motion was obtained, 120 degrees of flexion with gravity was obtained. The patella tracked well. There was no anterior/posterior or medial/lateral laxity in flexion or extension. The trials were removed. The joint was irrigated with pulse lavage. Periarticular block was placed in the posterior capsule, medial and lateral retinaculum extensor mechanism and subcutaneous tissues. The joint was further irrigated. The bone ends were irrigated and dried and the tibial baseplate was cemented into position. Excessive cement was removed. The superior surface was irrigated and dried and the polyethylene insert was placed. Distal femur was irrigated and dried and the femoral prosthesis was positioned. Excessive cement was removed. The knee was brought out into full extension until the cement had cured. The undersurface of the patella was irrigated and dried. The patellar button was cemented into position. Excessive cement was removed. Once the cement had cured, the knee was taken through range of motion. Full extension was easily obtained, 120 degrees of flexion with gravity was easily obtained. There was no anterior/posterior or medial/lateral laxity in flexion or extension and the patella tracked well. The joint was further irrigated with pulse lavage. The arthrotomy was closed with #2 Tevdek in oshaxq-ch-sapsq interrupted fashion. Knee was flexed. Repair was stable. Subcutaneous tissues were irrigated with pulse lavage using a total of 6 liters throughout the procedure. A 0 Vicryl was used for the deep subcutaneous layer, 2-0 Vicryl for the superficial subcutaneous layer, see used on skin. A soft dressing was applied. The tourniquet was deflated. The patient was transferred to recovery room awake and in stable condition. Job ID: [id number] DocumentID: [id number] Dictated Date: 11/03/2022 09:53:45 Factory Process Workers Date: 11/03/2022 16:20:00 Dictated By: KELBY WHITNEY MD
--- NOTE | 2022-11-03 17:02 | Consultation - Hospitalist ---
HPI History of Present Illness: HPI/Chief Complaint Nolberto Conley (Rick) is a 67 year old male with PMH HTN, T2DM, osteoarthritis, obesity, who was admitted after a scheduled total knee arthroplasty. He is havi ng some pain in his knee. He reports nausea, but no vomiting. He has no other complaints. He takes medications for high blood pressure, diabetes, and chronic pain. Source: patient Exam Limitations: no limitations Date Seen 11/03/22 Attending Physician Neeraj Bustillos MD PCP Admitting Physician: Kelby Wei MD Attending Physician: Kelby Wei MD Referring Physician Date of Admission Nov 03, 2022 at 06:00 Home Medications & Allergies Home Medications Reviewed patient Home Medication Reconciliation performed by pharmacy medication reconciliations senior service technician and/or nursing. Patients Allergies have been reviewed. Allergies Allergies Coded Allergies No Known Drug Allergies (Unverified11/03/22) Past Arzhjjo-Zcxqxp-Grbxdr Hx Patient Social History Tobacco Use?: No Smoking Status: Never a Smoker Use of E-Cig and/or Vaping dev: No Substance use?: No Alcohol Use?: No Pt feels they are or have been: No Immunizations Up To Date First/Initial COVID19 Vaccinat: 2020 Second COVID19 Vaccination Steve: 2020 Tetanus Booster (TDap): Less Than 5 Years Hepatitis A: No Hepatitis B: No Seasonal Allergies Seasonal Allergies: Yes Current Status Advance Directives: No Advance Directive Location: Home Communicates: Verbally Primary Language: Danish Preferred Spoken Language: Danish Sensory deficits: Vision impairment Additional sensory deficits: cataract implants Past Medical History Sleep Apnea Currently Using CPAP: No Currently Using BIPAP: No Hypertension Neuropathy Arthritis, Chronic Back Pain Diabetes, Non-Insulin dep Cataract Blood Disorders: No Adverse Reaction/Blood Tranf: No Family Medical History No Pertinent Family Hx Review of Systems Constitutional: no symptoms reported Respiratory: no symptoms reported Cardiovascular: no symptoms reported Gastrointestinal: nausea Physical Exam Physical Exam Vital Signs Vital Signs - First Documented 11/03/22 11/03/22 09:53 16:28 Temp 36.0 Pulse 84 Resp 16 B/P (MAP) 112/58 (76) Pulse Ox 96 O2 Delivery OxyMask O2 Flow Rate 10.00 Capillary Refill : Less Than 3 Seconds Height, Weight, BMI Height: 6'1.00" Weight: 270lbs. 0.0oz. 122.866035aw; 33.06 BMI Method:Stated General Appearance: No Apparent Distress, Obese HEENT: PERRL/EOMI, Pharynx Normal Neck: Normal Inspection, Supple Respiratory: Lungs Clear, No Respiratory Distress Cardiovascular: Regular Rate, Rhythm, No Murmur Gastrointestinal: Normal Bowel Sounds, Soft Extremity: Normal Inspection, No Pedal Edema Neurologic/Psychiatric: Alert, Normal Mood/Affect Skin: Normal Color, Warm/Dry Results Results/Procedures Labs Patient resulted labs reviewed. Assessment/Plan Assessment and Plan Assess & Plan/Chief Complaint s/p TKA Osteoarthritis of the knee Ortho primary, Dr. 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
[2022-11-03] MEDS: CEFUROXIME INJECTION 750 MG in NS (IVPB) 50 ML IV SCH (17:08)
[2022-11-03] MEDS: inSUlin ASPART (NovoLOG) 1 UNIT/0.01 ML (CHARGE PER UNIT) SC SCH (19:59)
[2022-11-03] MEDS: PREGABALIN 75 MG (LYRICA) CAP PO SCH (20:17)
[2022-11-04] MEDS: CEFUROXIME INJECTION 750 MG in NS (IVPB) 50 ML IV SCH (00:13)
[2022-11-04] MEDS: NS IV 1000 ML 1,000 ML IV SCH ×2 (00:13→12:00)
[2022-11-04 03:08] VITALS: BP 117/61
[2022-11-04 05:32] LABS: HEMOGLOBIN 14.3 g/dL (13.3-17.7)
[2022-11-04] MEDS: inSUlin ASPART (NovoLOG) 1 UNIT/0.01 ML (CHARGE PER UNIT) SC SCH ×4 (05:50→20:44)
[2022-11-04] MEDS: oxyCODONE/APAP 5/325MG (PERCOCET 5) TABLET PO PRN ×6 (06:06→20:44)
--- NOTE | 2022-11-04 07:48 | Progress Note ---
Standard Progress Note Progress Notes/Assess & Plan Date Seen by a Provider: Nov 04, 2022 Time Seen by a Provider: 07:39 Progress/Assessment & Plan post op check no complaints radiographs--HW well positioned without fracture RLE--equal DP pulse with brisk cap refill intact DF and PF of toes and ankle sensation intact to light touch throughout s/p RKTA mobilize as able Final Diagnosis no complaints Laboratory Tests Test 11/03/22 19:55 11/03/22 23:49 11/04/22 05:07 11/04/22 05:35 Range/Units Glucometer 106 118 H 167 H 70-110 MG/DL Hemoglobin 14.3 13.3-17.7 g/dL Hematocrit 43 40-54 % Vital Signs Date Time Temp Pulse Resp B/P (MAP) Pulse Ox O2 Delivery O2 Flow Rate FiO2 11/04/22 06:04 18 11/04/22 03:08 37.6 94 18 117/61 (79) 98 Room Air 0.00 0.00 11/03/22 23:44 37.1 88 18 119/62 (81) 97 Room Air 0.00 0.00 11/03/22 20:31 37.5 89 18 129/69 (89) 97 11/03/22 20:00 Room Air 11/03/22 18:34 18 11/03/22 16:28 37.5 84 18 128/72 (90) 96 Room Air 11/03/22 15:40 99 Room Air 1.00 11/03/22 10:40 Room Air 11/03/22 10:40 37.1 10 139/76 (97) 99 Room Air 11/03/22 10:30 OxyMask 1.00 11/03/22 10:30 10 137/86 (103) 100 OxyMask 1.00 11/03/22 10:20 19 100 2.00 11/03/22 10:14 OxyMask 3.00 11/03/22 10:10 36.2 18 113/69 (84) 98 OxyMask 3.00 11/03/22 10:00 11 118/65 (82) 100 OxyMask 10.00 11/03/22 09:58 OxyMask 10.00 11/03/22 09:53 36.0 16 112/58 (76) 96 OxyMask 10.00 I & O 11/04/22 07:00 Intake Total 1845 ml Output Total 700 ml Balance 1145 ml RLE--NVI distally no calf tenderness neg Mandy's s/p RTKA doing well PT/OT GOLD WHITNEY MD Nov 04, 2022 07:48
[2022-11-04] MEDS: LOSARTAN 25 MG (COZAAR) TAB PO SCH (08:06)
[2022-11-04] MEDS: EMPAGLIFLOZIN 10 MG TABLET (JARDIANCE) PO SCH (08:06)
[2022-11-04] MEDS: SENNA W/DOCUSATE (SENOKOT S) TABLET PO SCH ×2 (08:06→20:44)
[2022-11-04] MEDS: ASPIRIN E.C. 81 MG (ECOTRIN) TAB PO SCH (08:06)
[2022-11-04] MEDS: ENOXAPARIN INJECTION 30 MG/0.3 ML SYR SC SCH ×3 (08:13→20:44)
[2022-11-04] MEDS: PREGABALIN 75 MG (LYRICA) CAP PO SCH ×2 (08:13→20:44)
[2022-11-04 08:27] VITALS: BP 130/68
--- NOTE | 2022-11-04 08:59 | Physical Therapy Daily Note ---
PT Daily Note-Current Subjective Patient agrees to PT. Pain Numeric Pain Scale: 7 Location: Right Location Body Site: Knee Pain Description: Acute Section J - Health Conditions 1. Rarely or not at all 2. Occasionally 3. Frequently 4. Almost constantly 8. Unable to answer Pain Effect on Sleep: 2 Pain Interference with Therapy: 2 Pain Interference w/Day-to-Day: 2 Mental Status Patient Orientation: Normal For Age Attachments: Polar Pack, IV Transfers SCALE: Activities may be completed with or without assistive devices. 5-Iboxlapgtf-aadocfi completes the activity by him/herself with no assistance from a helper. 5-Set-up or Clean-up Assistance-helper sets up or cleans up; patient completes activity. [place] assists only prior to or following the activity. 4-Supervision or Touching Assistance-helper provides verbal cues and/or to uching/steadying and/or contact guard assistance as patient completes activity. Assistance may be provided throughout the activity or intermittently. 3-Partial/Moderate Assistance-helper does LESS THAN HALF the effort. [place] lifts, holds or supports trunk or limbs, but provides less than half the effort. 2-Substantial/Maximal Assistance-helper does MORE THAN HALF the effort. [place] lifts or holds trunk or limbs and provides more than half the effort. 2-Qpcduplss-tcsahh does ALL the effort. Patient does none of the effort to complete the activity. Or, the assistance of 2 or more helpers is required for the patient to complete the activity. If activity was not attempted, code reason: 7-Patient Refused. 9-Not Applicable-not attempted and the patient did not perform the activity before the current illness, exacerbation or injury. 10-Not Attempted due to Environmental Limitations-(lack of equipment, weather restraints, etc.). 88-Not Attempted due to Medical Conditions or Safety Concerns. Lying to Sitting/Side of Bed(Q: 6 Sit to Stand (QC): 4 Chair/Yvy-wo-Ldcnd Xfer(QC): 4 Weight Bearing Right Lower Extremity: Right Weight Bearing/Tolerated Left Lower Extremity: Left Full Weight Bearing Gait Training Distance: 250' Walk 10 feet (QC): 4 Walk 50 ft with 2 Turns(QC): 4 Walk 150 ft (QC): 4 Gait Assistive Device: FWW slow, steady, antalgic, trunk flexed posture Exercises Supine Ex: Ankle pumps, Quad Set, Heel Slides, Straight leg raise Supine Reps: 15 Seated Therapy Exercises: Long arc quads Seated Reps: 15 Assessment Patient tolerated treatment well and is up in recliner with needs met. PT to increase activity as tolerated by patient. Patient has functional AROM right knee with all activity. PT Long-Term Goals Cigar Sorter Goals PT Long-Term Goals Time Frame: Nov 20, 2022 Roll Left & Right (QC): 6 Sit to Lying (QC): 6 Lying-Sitting on Side/Bed(QC): 6 Sit to Stand (QC): 6 Chair/Lyl-tq-Avsiy Xfer(QC): 6 Toilet Transfer (QC): 6 Car Transfer (QC): 6 Does the Patient Walk: Yes Walk 10 feet (QC): 6 Walk 50ft with 2 Turns (QC): 6 Walk 150 ft (QC): 4 1 Step (curb) (QC): 4 4 Steps (QC): 4 12 Steps (QC): 4 PT Plan Treatment/Plan Treatment Plan: Continue Plan of Care Treatment Plan: Bed Mobility, Education, Functional Activity Theresa, Functional Strength, Group Therapy, Gait, Safety, Therapeutic Exercise, Transfers Treatment Duration: Nov 20, 2022 Frequency: 11 times per week Estimated Hrs Per Day: .25 hour per day Patient and/or Family Agrees t: Yes Time Time In: 800 Time Out: 823 DATE: Nov 04, 2022 Total Billed Treatment Time: 23 Total Billed Treatment 1 visit EX 13 min GT 10 min RUIZ MEHTA PT Nov 04, 2022 08:59
[2022-11-04] MEDS ORDERED: EMPAGLIFLOZIN 10 MG TABLET (JARDIANCE) PO SCH (09:00)
--- NOTE | 2022-11-04 10:18 | Anesthesia-General Post-Op ---
General Patient Condition Mental Status/LOC: Same as Preop Cardiovascular: Satisfactory Nausea/Vomiting: Absent Respiratory: Satisfactory Pain: Controlled Complications: Absent Post Op Complications Complications None Follow Up Care/Instructions Patient Instructions None needed. Anesthesia/Patient Condition Patient Condition Patient is doing well, no complaints, stable vital signs, no apparent adverse anesthesia problems. No complications reported per nursing. DANNY CROINN CRNA Nov 04, 2022 10:18
[2022-11-04 11:08] VITALS: BP 129/71
--- NOTE | 2022-11-04 14:20 | Physical Therapy Daily Note ---
PT Daily Note-Current Subjective Patient agrees to PT. Pain Numeric Pain Scale: 8 Location: Right Location Body Site: Knee Pain Description: Acute Section J - Health Conditions 1. Rarely or not at all 2. Occasionally 3. Frequently 4. Almost constantly 8. Unable to answer Pain Effect on Sleep: 2 Pain Interference with Therapy: 2 Pain Interference w/Day-to-Day: 2 Mental Status Patient Orientation: Normal For Age Attachments: Polar Pack, IV Transfers SCALE: Activities may be completed with or without assistive devices. 2-Fwsbhcecxx-nxpcunv completes the activity by him/herself with no assistance from a helper. 5-Set-up or Clean-up Assistance-helper sets up or cleans up; patient completes activity. [place] assists only prior to or following the activity. 4-Supervision or Touching Assistance-helper provides verbal cues and/or to uching/steadying and/or contact guard assistance as patient completes activity. Assistance may be provided throughout the activity or intermittently. 3-Partial/Moderate Assistance-helper does LESS THAN HALF the effort. [place] lifts, holds or supports trunk or limbs, but provides less than half the effort. 2-Substantial/Maximal Assistance-helper does MORE THAN HALF the effort. [place] lifts or holds trunk or limbs and provides more than half the effort. 9-Xlibqzwbq-chsfle does ALL the effort. Patient does none of the effort to complete the activity. Or, the assistance of 2 or more helpers is required for the patient to complete the activity. If activity was not attempted, code reason: 7-Patient Refused. 9-Not Applicable-not attempted and the patient did not perform the activity before the current illness, exacerbation or injury. 10-Not Attempted due to Environmental Limitations-(lack of equipment, weather restraints, etc.). 88-Not Attempted due to Medical Conditions or Safety Concerns. Sit to Lying (QC): 6 Lying to Sitting/Side of Bed(Q: 6 Sit to Stand (QC): 4 Weight Bearing Right Lower Extremity: Right Weight Bearing/Tolerated Left Lower Extremity: Left Full Weight Bearing Gait Training Distance: 450' Walk 10 feet (QC): 5 Walk 50 ft with 2 Turns(QC): 5 Walk 150 ft (QC): 5 Gait Assistive Device: FWW trunk flexed posture/functional gait sequence Exercises Supine Ex: Ankle pumps, Quad Set, Heel Slides, Straight leg raise Supine Reps: 15 Seated Therapy Exercises: Long arc quads Seated Reps: 15 Assessment Patient tolerated treatment well and returned to bed with needs met. Patient improving with right knee ROM and ambulation distance. Plan dismissal tomorrow after PT. PT Mcc Goals Internist Goals PT Internist Goals Time Frame: Nov 20, 2022 Roll Left & Right (QC): 6 Sit to Lying (QC): 6 Lying-Sitting on Side/Bed(QC): 6 Sit to Stand (QC): 6 Chair/Anv-ep-Fnafw Xfer(QC): 6 Toilet Transfer (QC): 6 Car Transfer (QC): 6 Does the Patient Walk: Yes Walk 10 feet (QC): 6 Walk 50ft with 2 Turns (QC): 6 Walk 150 ft (QC): 4 1 Step (curb) (QC): 4 4 Steps (QC): 4 12 Steps (QC): 4 PT Plan Treatment/Plan Treatment Plan: Continue Plan of Care Treatment Plan: Bed Mobility, Education, Functional Activity Theresa, Functional Strength, Group Therapy, Gait, Safety, Therapeutic Exercise, Transfers Treatment Duration: Nov 20, 2022 Frequency: 11 times per week Estimated Hrs Per Day: .25 hour per day Patient and/or Family Agrees t: Yes Time Time In: 1320 Time Out: 1345 DATE: Nov 04, 2022 Total Billed Treatment Time: 25 Total Billed Treatment 1 visit EX 14 min GT 11 min RUIZ MEHTA PT Nov 04, 2022 14:20
[2022-11-04 16:00] VITALS: BP 111/60
[2022-11-04 19:13] VITALS: BP 124/64
[2022-11-05 00:16] VITALS: BP 150/78
[2022-11-05] MEDS: NS IV 1000 ML 1,000 ML IV SCH (00:20)
[2022-11-05] MEDS: oxyCODONE/APAP 5/325MG (PERCOCET 5) TABLET PO PRN ×2 (00:20→07:43)
--- NOTE | 2022-11-05 00:58 | DISCHARGE SUMMARY ---
DIAGNOSES: 1. Right knee primary osteoarthritis. 2. Hypertension. 3. Diabetes. PROCEDURE: Right total knee arthroplasty. SUMMARY OF HOSPITAL COURSE: The patient is a 67-year-old gentleman who underwent a right total knee arthroplasty on the date of admission. Postoperatively, he progressed well. At the time of discharge, his wound was clean and dry and no calf tenderness. Negative Homans sign. He was tolerating his diet well and tolerating pain with oral pain medication. CONDITION AT DISCHARGE: Good. DISCHARGE DIET: Regular. FOLLOWUP: Followup is in 3 weeks. ACTIVITIES: Weightbearing as tolerated with a walker. DISCHARGE MEDICATIONS: Home medications, one aspirin per day for 30 days and Percocet as needed for pain. Job ID: [id number] DocumentID: [id number] Dictated Date: 11/04/2022 07:49:39 Leather Repairer Date: 11/05/2022 00:55:00 Dictated By: GOLD WHITNEY MD
[2022-11-05 04:00] VITALS: BP 154/75
[2022-11-05 05:56] LABS: HEMOGLOBIN 14.1 g/dL (13.3-17.7)
[2022-11-05] MEDS: inSUlin ASPART (NovoLOG) 1 UNIT/0.01 ML (CHARGE PER UNIT) SC SCH (05:57)
--- NOTE | 2022-11-05 07:04 | Progress Note ---
Standard Progress Note Progress Notes/Assess & Plan Date Seen by a Provider: Nov 05, 2022 Time Seen by a Provider: 06:48 Progress/Assessment & Plan post op check no complaints radiographs--HW well positioned without fracture RLE--equal DP pulse with brisk cap refill intact DF and PF of toes and ankle sensation intact to light touch throughout s/p RKTA mobilize as able Final Diagnosis no complaints Laboratory Tests Test 11/04/22 11:10 11/04/22 16:09 11/04/22 20:31 11/05/22 05:20 Range/Units Glucometer 147 H 144 H 179 H 70-110 MG/DL Hemoglobin 14.1 13.3-17.7 g/dL Hematocrit 42 40-54 % Test 11/05/22 05:47 Range/Units Glucometer 116 H 70-110 MG/DL Vital Signs Date Time Temp Pulse Resp B/P (MAP) Pulse Ox O2 Delivery O2 Flow Rate FiO2 11/05/22 05:48 18 11/05/22 04:00 37.2 99 18 154/75 (101) 93 Room Air 11/05/22 00:16 37.5 95 18 150/78 (102) 91 Room Air 11/04/22 20:00 Room Air 11/04/22 19:13 37.3 105 18 124/64 (84) 90 Room Air 11/04/22 18:12 18 11/04/22 16:00 37.0 105 18 111/60 (77) 91 Room Air 11/04/22 11:08 37.6 94 18 129/71 (90) 92 Room Air 11/04/22 08:27 36.9 98 18 130/68 (88) 87 Room Air 11/04/22 08:00 Room Air I & O 11/05/22 07:00 Intake Total 1910 ml Output Total 4235 ml Balance -2325 ml RLE--incision clean and dry no calf tenderness neg Mandy's s/p RTKA doing well DC after PT today GOLD WHITNEY MD Nov 05, 2022 07:04
[2022-11-05] MEDS ORDERED: morphine INJ 4 MG/ML 1 ML (VIAL/SYRINGE) IVP PRN (07:15)
[2022-11-05 07:33] VITALS: BP 133/64
[2022-11-05] MEDS: PREGABALIN 75 MG (LYRICA) CAP PO SCH (08:38)
[2022-11-05] MEDS: SENNA W/DOCUSATE (SENOKOT S) TABLET PO SCH (08:38)
[2022-11-05] MEDS: ENOXAPARIN INJECTION 30 MG/0.3 ML SYR SC SCH (08:38)
[2022-11-05] MEDS: EMPAGLIFLOZIN 10 MG TABLET (JARDIANCE) PO SCH (08:38)
[2022-11-05] MEDS: LOSARTAN 25 MG (COZAAR) TAB PO SCH (08:38)
[2022-11-05] MEDS: ASPIRIN E.C. 81 MG (ECOTRIN) TAB PO SCH (08:38)
--- NOTE | 2022-11-05 08:38 | Physical Therapy Daily Note ---
PT Daily Note-Current Subjective Patient agrees to PT. He reports he slept last night and feels better today. Pain Numeric Pain Scale: 5-Moderate Pain Location: Right Location Body Site: Knee Pain Description: Acute Section J - Health Conditions 1. Rarely or not at all 2. Occasionally 3. Frequently 4. Almost constantly 8. Unable to answer Pain Effect on Sleep: 2 Pain Interference with Therapy: 2 Pain Interference w/Day-to-Day: 2 Mental Status Patient Orientation: Normal For Age Transfers SCALE: Activities may be completed with or without assistive devices. 4-Xegfwmpkcp-ndevypm completes the activity by him/herself with no assistance from a helper. 5-Set-up or Clean-up Assistance-helper sets up or cleans up; patient completes activity. [place] assists only prior to or following the activity. 4-Supervision or Touching Assistance-helper provides verbal cues and/or touching/steadying and/or contact guard assistance as patient completes activity. Assistance may be provided throughout the activity or intermittently. 3-Partial/Moderate Assistance-helper does LESS THAN HALF the effort. [place]bron lif ts, holds or supports trunk or limbs, but provides less than half the effort. 2-Substantial/Maximal Assistance-helper does MORE THAN HALF the effort. [place] lifts or holds trunk or limbs and provides more than half the effort. 9-Wyqaqijyd-ymxels does ALL the effort. Patient does none of the effort to complete the activity. Or, the assistance of 2 or more helpers is required for the patient to complete the activity. If activity was not attempted, code reason: 7-Patient Refused. 9-Not Applicable-not attempted and the patient did not perform the activity before the current illness, exacerbation or injury. 10-Not Attempted due to Environmental Limitations-(lack of equipment, weather restraints, etc.). 88-Not Attempted due to Medical Conditions or Safety Concerns. Lying to Sitting/Side of Bed(Q: 6 Sit to Stand (QC): 6 Chair/Eea-po-Vybkk Xfer(QC): 6 Weight Bearing Right Lower Extremity: Right Weight Bearing/Tolerated Left Lower Extremity: Left Full Weight Bearing Gait Training Distance: 300' x 2 Walk 10 feet (QC): 6 Walk 50 ft with 2 Turns(QC): 6 Walk 150 ft (QC): 6 Walking 10ft/uneven surface-QC: 6 Gait Assistive Device: FWW reciprocal pattern Stair Training Stair Training: Handrails/: 2 handrails #of Steps: 12 1 Step (curb) (QC): 4 4 Steps (QC): 4 12 Steps (QC): 4 Stairs: Pattern: Step to Exercises Supine Ex: Ankle pumps, Quad Set, Heel Slides, Straight leg raise Supine Reps: 15 Seated Therapy Exercises: Long arc quads Seated Reps: 15 Assessment Patient tolerated treatment well and has attained all functional goals. Patient instructed to perform HEP PRN upon returning to home. Patient voices understanding. PT Nursing Home Goals Nursing Home Goals PT Nursing Home Goals Time Frame: Nov 20, 2022 Roll Left & Right (QC): 6 Sit to Lying (QC): 6 Lying-Sitting on Side/Bed(QC): 6 Sit to Stand (QC): 6 Chair/Pby-pw-Aygdm Xfer(QC): 6 Toilet Transfer (QC): 6 Car Transfer (QC): 6 Does the Patient Walk: Yes Walk 10 feet (QC): 6 Walk 50ft with 2 Turns (QC): 6 Walk 150 ft (QC): 4 1 Step (curb) (QC): 4 4 Steps (QC): 4 12 Steps (QC): 4 PT Plan Treatment/Plan Treatment Plan: Discontinue PT, goals met Treatment Plan: Bed Mobility, Education, Functional Activity Theresa, Functional Strength, Group Therapy, Gait, Safety, Therapeutic Exercise, Transfers Treatment Duration: Nov 20, 2022 Frequency: 11 times per week Estimated Hrs Per Day: .25 hour per day Patient and/or Family Agrees t: Yes Time Time In: 745 Time Out: 808 DATE: Nov 05, 2022 Total Billed Treatment Time: 23 Total Billed Treatment 1 visit EX 12 min FA 11 min RUIZ MEHTA PT Nov 05, 2022 08:38
[2022-11-05 10:01] VITALS: BP 133/64
[2022-11-08] MEDS ORDERED: APIX5TAB PO (10:54)
== END 2022-11-05 10:03 | disposition home health service (06) | DRG 470 ==
LOC: 4TH 06:00 → SURG 06:01 → 4TH 10:51
PROVIDERS: ADMIT Orthopaedic Surgery; ATTEND Orthopaedic Surgery
PROC: 0SRC0J9 Replacement of Right Knee Joint with Synthetic Substitute, Cemented, Open Approach (ICD-10-PCS; principal; 2022-11-03 07:35)
DX: M17.11 Unilateral primary osteoarthritis, right knee (principal); I10 Essential (primary) hypertension; E66.9 Obesity, unspecified; Z68.33 Body mass index [BMI] 33.0-33.9, adult; G89.29 Other chronic pain; M54.9 Dorsalgia, unspecified; E11.40 Type 2 diabetes mellitus with diabetic neuropathy, unspecified; G47.30 Sleep apnea, unspecified
CPT/HCPCS: 36415; 73560; 82947; 85014; 85018; 86850; 86900; 86901; 94664

== ENCOUNTER 2022-12-04 16:53 | Emergency (ER) | payer OTHER ==
[~2022-12-04] VITALS: Ht 182 cm; Wt 104.0 kg
[~2022-12-04 16:53] MED LIST changes: +APIX5TAB PO
[2022-12-04] MEDS ORDERED: NS IV 1000 ML 1,000 ML IV SCH (17:15)
--- NOTE | 2022-12-04 17:22 | ED General ---
General Chief Complaint: Fever-Adult/Adol Stated Complaint: LOWER BACK PAIN/FEVER/FATIGUE/NOT EATING Nursing Triage Note: PT AMB TO RM 9 W CO OF FEVER, FATIGUE, WEAKNESS, FEELS UNBALANCED. PAIN ACROSS MIDDLE BACK. PT HAS TOTAL R KNEE REPLACEMENT ON 11/03/22. STATES PT SLEEPING ALL THE TIME. ALSO STATES HE IS NOT TAKING PAIN MEDS TO MAKE HIM SLEEPY. PT STATES HAS HAD 2 TICK BITES LAST WEEK Source of Information: Patient Exam Limitations: No Limitations History of Present Illness Date Seen by Provider: December 04, 2022 Time Seen by Provider: 16:56 Initial Comments 67-year-old male presents to the ED with with complaints of mid back pain, fatigue, fever for the last couple days. reports his temperature was 101.7 today she gave Tylenol around 415. He complains of some indigestion. Denies chest pain, shortness of air, diarrhea, dysuria. Reports urine appears yellow. Patient also reports noticing tick bites approximately 1 week ago. 1 was located on his left shoulder, states she remove the tick, but the area swelled and was red. States area has actually improved. The other was located on his hip. Reports there is a small area of redness there, states that has improved. He is uncertain how long the ticks were attached. Past medical history includes type 2 diabetes, DVT, and hypertension. He currently takes losartan, Eliquis, Jardiance, Trulicity. Patient had a right knee arthroplasty completed 1 month ago. Allergies and Home Medications Allergies Coded Allergies: No Known Drug Allergies (Unverified , 11/03/22) Patient Home Medication List Home Medication List Reviewed: Yes Apixaban (Eliquis) 5 Mg Tablet, 5 MG PO BID Prescribed by: CORRIE JACKSON on 11/08/22 1054 Cetirizine HCl (Cetirizine HCl) 10 Mg Tablet, 10 MG PO DAILY, (Reported) Entered as Reported by: MARIA FERNANDA CORRIGAN on 01/10/18 1037 Doxycycline Hyclate (Doxycycline Hyclate) 100 Mg Tablet, 100 MG PO BID Prescribed by: Heidi Dimas on 12/04/22 194 Dulaglutide (Trulicity) 1.5 Mg/0.5 Ml Pen.injctr, 1.5 MG SQ DAILY, (Reported) Entered as Reported by: SHANNA SANDOVAL on 10/28/22 1320 Empagliflozin (Jardiance) 25 Mg Tablet, 25 MG PO DAILY, (Reported) Entered as Reported by: SHANNA SANDOVAL on 10/28/22 1320 Lifitegrast (Xiidra) 1 Each Droperette, 1 EACH OP DAILY, (Reported) Entered as Reported by: SANDHYA MENA on 10/11/18 1121 Losartan Potassium (Losartan Potassium) 25 Mg Tablet, 25 MG PO DAILY, (Reported) Entered as Reported by: SHANNA SANDOVAL on 10/28/22 1320 Pregabalin (Lyrica) 75 Mg Capsule, 75 MG PO TID, (Reported) Entered as Reported by: SHANNA SANDOVAL on 10/28/22 132 Review of Systems Review of Systems Constitutional: see HPI Past Qjznggv-Ilglbd-Obtqla Hx Patient Social History Tobacco Use?: No Substance use?: No Alcohol Use?: No Pt feels they are or have been: No Immunizations Up To Date Influenza Vaccine Up-to-Date: Yes; Up-to-Date First/Initial COVID19 Vaccinat: 2020 Second COVID19 Vaccination Steve: 2020 Third COVID19 Vaccination Date: 2020 Seasonal Allergies Seasonal Allergies: Yes Past Medical History Surgery/Hospitalization HX: htn, dm, right total knee Surgeries: Yes (neck sx, bilat knee scope,CORANRY IMPLANTS, RIGHT EYE HOLE REPAIR) Eye Surgery, Joint Replacement, Orthopedic Respiratory: Yes Sleep Apnea Currently Using CPAP: No Currently Using BIPAP: No Cardiac: Yes Hypertension Neurological: Yes Neuropathy Genitourinary: No Gastrointestinal: No Musculoskeletal: Yes (RIGHT KNEE OSTEOARTHRITIS) Arthritis, Chronic Back Pain Endocrine: Yes Diabetes, Non-Insulin dep HEENT: Yes (HOLE RIGHT EYE FIXED) Cataract Cancer: No Psychosocial: No Integumentary: No Blood Disorders: No Adverse Reaction/Blood Tranf: No Family Medical History No Pertinent Family Hx Physical Exam-Suspected Sepsis Physical Exam Vital Signs Vital Signs - First Documented 12/04/22 17:00 Temp 37.8 Pulse 104 Resp 22 B/P (MAP) 135/74 (94) Pulse Ox 92 O2 Delivery Room Air Capillary Refill : Less Than 3 Seconds Blood Pressure Mean: 94 Height, Weight, BMI Height: 6'1.00" Weight: 270lbs. 0.0oz. 122.667961mf; 31.00 BMI Method:Stated General Appearance: No Apparent Distress, WD/WN Neck: Non Tender, Supple Respiratory: No Accessory Muscle Use, No Respiratory Distress, Decreased Breath Sounds (Decreased on left) Cardiovascular: Regular Rate, Rhythm Back: Normal Inspection, No CVA Tenderness, No Vertebral Tenderness Extremity: Normal Inspection, Normal Range of Motion, Non Tender, Other (Right knee appears within normal limits, no erythema, swelling, warmth, slightly reduced range of motion, no pain with range of motion) Neurologic/Psychiatric: Alert, Normal Mood/Affect Skin: normal color, warm/dry, other (Erythema to right shoulder at location of tick bite) Focused Exam Lactate Level 12/04/22 17:20: Lactic Acid Level 0.82 Lactic Acid Level Laboratory Tests Test 12/04/22 17:20 Lactic Acid Level 0.82 MMOL/L (0.50-2.00) Progress/Results/Core Measures Suspected Sepsis SIRS Temperature: Pulse: 104 Respiratory Rate: 22 Laboratory Tests 12/04/22 17:20: White Blood Count 3.0L Blood Pressure 135 /74 Mean: 94 12/04/22 17:20: Lactic Acid Level 0.82 Laboratory Tests 12/04/22 17:20: Creatinine 0.75, INR Comment 1.1, Platelet Count 159, Total Bilirubin 1.1H Results/Orders Lab Results Laboratory Tests Test 12/04/22 17:20 12/04/22 17:37 12/04/22 18:10 12/04/22 18:47 Range/Units White Blood Count 3.0 L 4.3-11.0 10^3/uL Red Blood Count 5.04 4.30-5.52 10^6/uL Hemoglobin 14.7 13.3-17.7 g/dL Hematocrit 44 40-54 % Mean Corpuscular Volume 87 80-99 fL Mean Corpuscular Hemoglobin 29 25-34 pg Mean Corpuscular Hemoglobin Concent 34 32-36 g/dL Red Cell Distribution Width 12.7 10.0-14.5 % Platelet Count 159 130-400 10^3/uL Mean Platelet Volume 8.9 L 9.0-12.2 fL Immature Granulocyte % (Auto) 0 % Neutrophils (%) (Auto) 68 42-75 % Lymphocytes (%) (Auto) 15 12-44 % Monocytes (%) (Auto) 16 H 0-12 % Eosinophils (%) (Auto) 0 0-10 % Basophils (%) (Auto) 0 0-10 % Neutrophils # (Auto) 2.1 1.8-7.8 10^3/uL Lymphocytes # (Auto) 0.5 L 1.0-4.0 10^3/uL Monocytes # (Auto) 0.5 0.0-1.0 10^3/uL Eosinophils # (Auto) 0.0 0.0-0.3 10^3/uL Basophils # (Auto) 0.0 0.0-0.1 10^3/uL Immature Granulocyte # (Auto) 0.0 0.0-0.1 10^3/uL Prothrombin Time 14.0 12.2-14.7 SEC INR Comment 1.1 0.8-1.4 Activated Partial Thromboplast Time 37 H 24-35 SEC Sodium Level 133 L 135-145 MMOL/L Potassium Level 3.7 3.6-5.0 MMOL/L Chloride Level 100 98-107 MMOL/L Carbon Dioxide Level 20 L 21-32 MMOL/L Anion Gap 13 5-14 MMOL/L Blood Urea Nitrogen 13 7-18 MG/DL Creatinine 0.75 0.60-1.30 MG/DL Estimat Glomerular Filtration Rate 98 BUN/Creatinine Ratio 17 Glucose Level 119 H 70-105 MG/DL Lactic Acid Level 0.82 0.50-2.00 MMOL/L Calcium Level 8.9 8.5-10.1 MG/DL Corrected Calcium 8.9 8.5-10.1 MG/DL Total Bilirubin 1.1 H 0.1-1.0 MG/DL Aspartate Amino Transf (AST/SGOT) 48 H 5-34 U/L Alanine Aminotransferase (ALT/SGPT) 45 0-55 U/L Alkaline Phosphatase 70 40-136 U/L Total Protein 7.1 6.4-8.2 GM/DL Albumin 4.0 3.2-4.5 GM/DL SARS-CoV-2 RNA (RT-PCR) Not Detected Not Detecte Urine Color YELLOW Urine Clarity CLEAR Urine pH 5.5 5-9 Urine Specific [place] 1.015 L 1.016-1.022 Urine Protein TRACE H NEGATIVE Urine Glucose (UA) 2+ H NEGATIVE Urine Ketones 2+ H NEGATIVE Urine Nitrite NEGATIVE NEGATIVE Urine Bilirubin NEGATIVE NEGATIVE Urine Urobilinogen 0.2 < = 1.0 MG/DL Urine Leukocyte Esterase NEGATIVE NEGATIVE Urine RBC (Auto) NEGATIVE NEGATIVE Urine RBC NONE /HPF Urine WBC NONE /HPF Urine Squamous Epithelial Cells RARE /HPF Urine Crystals NONE /LPF Urine Bacteria NEGATIVE /HPF Urine Casts NONE /LPF Urine Mucus NEGATIVE /LPF Urine Culture Indicated CULTURE PENDING My Orders Orders - HEIDI DIMAS APRN Urinalysis (12/04/22 16:56) Cbc With Automated Diff (12/04/22 17:15) Comprehensive Metabolic Panel (12/04/22 17:15) Blood Culture (12/04/22 17:15) Sputum Culture (12/04/22 17:15) Urine Culture (12/04/22 17:15) Protime With Inr (12/04/22 17:15) Partial Thromboplastin Time (12/04/22 17:15) Chest 1 View, Ap/Pa Only (12/04/22 17:15) Ed Iv/Invasive Line Start (12/04/22 17:15) Vital Signs Adult Sepsis Patie Q15M (12/04/22 17:15) O2 (12/04/22 17:15) Remove Rings In Anticipation O (12/04/22 17:15) Lactic Acid Analyzer (12/04/22 17:15) Ns Iv 1000 Ml (Sodium Chloride 0.9%) (12/04/22 17:15) Covid 19 Inhouse Test (12/04/22 17:15) Tick Panel With Lyme Eia (12/04/22 17:33) Ct Angio Chest W (R/O Pe) (12/04/22 18:09) Iohexol Injection (Omnipaque 350 Mg/Ml 1 (12/04/22 18:15) Received Contrast (Hold Metformin- Contr (12/04/22 18:15) Ns (Ivpb) (Sodium Chloride 0.9% Ivpb Bag (12/04/22 18:15) Ns Iv 1000 Ml (Sodium Chloride 0.9%) (12/04/22 18:14) Ceftriaxone Inj (Rocephin Inj) (12/04/22 19:15) Medications Given in ED Current Medications Medications Dose Ordered Sig/Melanie Route Start Time Stop Time Status Last Admin Dose Admin Ceftriaxone Sodium 2000 mg/ Sodium Chloride 50 ml @ 100 mls/hr ONCE ONCE IV 12/04/22 19:15 12/04/22 19:40 DC 12/04/22 19:17 100 MLS/HR Iohexol 100 ml ONCE ONCE IV 12/04/22 18:15 12/04/22 18:17 DC 12/04/22 18:38 80 ML Sodium Chloride 100 ml ONCE ONCE IV 12/04/22 18:15 12/04/22 18:17 DC 12/04/22 18:38 100 ML Vital Signs/I&O 12/04/22 12/04/22 12/04/22 12/04/22 17:00 17:00 17:20 19:37 Temp 37.8 36.7 Pulse 104 79 Resp 22 17 B/P (MAP) 135/74 (94) 133/81 Pulse Ox 92 91 98 O2 Delivery Room Air Room Air Room Air Room Air Capillary Refill : Less Than 3 Seconds Blood Pressure Mean: 94 Progress Note : Progress Note Patient seen and evaluated, resting comfortably in bed, no acute distress. He does appear fatigued. Face appears flushed. Oxygen saturation ranging from 89 to 92% on room air. Based on exam and symptoms, septic work-up initiated including CBC, CMP, blood cultures x2, lactic acid, sputum culture, urinalysis, urine culture, coags, tick panel. 2 L of IV fluids ordered. Labs and imaging reviewed. CBC shows decreased WBCs 3.0. CMP shows slightly decreased sodium 133, slightly decreased CO2 20, glucose 119. AST slightly elevated 48. Lactic acid normal 0.82. Coags show slightly elevated APTT. Urine shows 2+ glucose, 2+ ketones. Negative for infection. COVID-negative. Chest x-ray negative for acute process. CT angio negative for PE. It does show mildly prominent lymph nodes in the right axilla as well as hepatic stenosis with hepatosplenomegaly. Based on available labs, have not found an acute cause for his symptoms. I did order a tick panel, which is a send out. I will not have the results tonight. We will go ahead and treat patient for possible tickborne illness. We will give dose of Rocephin here and discharged with doxycycline. Results discussed with patient. Patient reports he feels better after the fluids. Discharge instructions and return precautions provided. Diagnostic Imaging Diagonstic Imaging: Xray Plain Films/CT/US/NM/MRI: chest [facility] [place], [place] NAME: DOROTHY OLSON [facility] REC#: [id number] PT STATUS: REG ER : 1955 PHYSICIAN: HEIDI DIMAS APRN ADMIT DATE: 12/04/22/ER Signed Date of Exam:12/04/22 CHEST 1 VIEW, AP/PA ONLY EXAMINATION: Chest 1 view. HISTORY: Decreased oxygenation saturations. COMPARISON: 11/06/2022. FINDINGS: The lung volumes are normal. No focal consolidation is seen. No large pleural effusion or pneumothorax is seen. The cardiomediastinal silhouette is normal in size and contour. No acute osseous abnormality is seen. IMPRESSION: No acute pleuroparenchymal process. Dictated by: Dictated on workstation # [id number] Dict: 12/04/221743 Trans: 12/04/221755 [facility] [id number] Interpreted by: LENA HAAS DO Electronically signed by: LENA HAAS DO 12/04/221755 Diagonstic Imaging: CT Plain Films/CT/US/NM/MRI: chest Comments [facility] [place] [place] NAME: DOROTHY OLSON [facility] REC#: [id number] PT STATUS: REG ER : 1955 PHYSICIAN: HEIDI DIMAS APRN ADMIT DATE: 12/04/22/ER Signed Date of Exam:12/04/22 CT ANGIO CHEST W (R/O PE) TECHNIQUE: CTA of the chest was performed. 3-D reformats were obtained. Dose reduction techniques were utilized. REASON FOR EXAM: Chest pain. Weakness. COMPARISON: Chest radiograph performed earlier the same date. FINDINGS: This helical CT pulmonary angiogram is diagnostic to the subsegmental level branches of the pulmonary artery and demonstrates no pulmonary embolus. The heart and great vessels are unremarkable. There is no pericardial effusion. Mildly prominent lymph nodes are seen in the right axilla. The lungs demonstrate no consolidation, nodule or other parenchymal abnormality. No pleural effusion is seen. Osseous structures appear normal. There is hepatic steatosis with hepatosplenomegaly. IMPRESSION: 1. No acute pulmonary embolus. 2. Mildly prominent lymph nodes in the right axilla. 3. Hepatic steatosis with hepatosplenomegaly. Dictated by: Dictated on workstation # [id number] Dict: 12/04/221843 Trans: 12/04/221853 [facility] [id number] Interpreted by: LENA HAAS DO Electronically signed by: LENA HAAS DO 12/04/221853 Departure Impression Primary Impression: Fever Disposition: HOME, SELF-CARE Condition: Stable Departure-Patient Inst. Decision time for Depature: 19:10 Referrals: MARCO ANTONIO BUSTILLOS MD (PCP/Family) Primary Care Physician Patient Instructions: Fever, Adult (DC) Add. Discharge Instructions: Complete full course of antibiotic as directed. You may take Tylenol or ibuprofen as needed for pain and fever. Make sure you are drinking plenty of water or other noncaffeinated, low sugar beverages. Call Dr. Bustillos on Tuesday to schedule a follow-up appointment next week. Return for severe pain, neurological changes, abnormal behavior, altered mental status, or any other new, concerning, or worsening symptoms. All discharge instructions reviewed with patient and/or family. Voiced understanding. Scripts Doxycycline Hyclate (Doxycycline Hyclate) 100 Mg Tablet 100 MG PO BID for 14 Days, #28 TAB 0 Refills Prov: HEIDI DIMAS APRN 12/04/22 HEIDI DIMAS APRN December 04, 2022 17:22
[2022-12-04 17:33] LABS: BASOPHILS % (AUTO) 0 % (0-10); EOSINOPHILS % (AUTO) 0 % (0-10); HEMATOCRIT 44 % (40-54); HEMOGLOBIN 14.7 g/dL (13.3-17.7); LYMPHOCYTES # (AUTO) 0.5 10^3/uL (1.0-4.0); LYMPHOCYTES % (AUTO) 15 % (12-44); MEAN CORPUSCULAR HEMOGLOBIN 29 pg (25-34); MEAN CORPUSCULAR HGB CONC 34 g/dL (32-36); MEAN CORPUSCULAR VOLUME 87 fL (80-99); MEAN PLATELET VOLUME 8.9 fL (9.0-12.2); MONOCYTES # (AUTO) 0.5 10^3/uL (0.0-1.0); MONOCYTES % (AUTO) 16 % (0-12); NEUTROPHILS # (AUTO) 2.1 10^3/uL (1.8-7.8); NEUTROPHILS % (AUTO) 68 % (42-75); PLATELET COUNT 159 10^3/uL (130-400)
[2022-12-04 17:45] LABS: INR 1.1 (0.8-1.4); POTASSIUM 3.7 MMOL/L (3.6-5.0)
[2022-12-04 17:46] LABS: CALCIUM 8.9 MG/DL (8.5-10.1)
[2022-12-04 17:47] LABS: TOTAL PROTEIN 7.1 GM/DL (6.4-8.2)
--- NOTE | 2022-12-04 17:47 | Diagnostic Imaging Report ---
EXAMINATION: Chest 1 view. HISTORY: Decreased oxygenation saturations. COMPARISON: 11/06/2022. FINDINGS: The lung volumes are normal. No focal consolidation is seen. No large pleural effusion or pneumothorax is seen. The cardiomediastinal silhouette is normal in size and contour. No acute osseous abnormality is seen. IMPRESSION: No acute pleuroparenchymal process. Dictated by: Dictated on workstation # [id number]
[2022-12-04 17:49] LABS: BILIRUBIN,TOTAL 1.1 MG/DL (0.1-1.0)
[2022-12-04 17:51] LABS: CREATININE SERUM 0.75 MG/DL (0.60-1.30)
[2022-12-04] MEDS ORDERED: NS IV 1000 ML 1,000 ML ONE (18:14)
[2022-12-04] MEDS ORDERED: IOHEXOL 350 MG/ML 100 ML (OMNIPAQUE 350) VIAL IV ONE (18:15)
[2022-12-04] MEDS ORDERED: HOLD METFORMIN - RECEIVED CONTRAST 20 ML VIAL IV SCH (18:15)
[2022-12-04] MEDS ORDERED: NS 100 ML (IVPB) BAG IV ONE (18:15)
--- NOTE | 2022-12-04 18:49 | Diagnostic Imaging Report ---
TECHNIQUE: CTA of the chest was performed. 3-D reformats were obtained. Dose reduction techniques were utilized. REASON FOR EXAM: Chest pain. Weakness. COMPARISON: Chest radiograph performed earlier the same date. FINDINGS: This helical CT pulmonary angiogram is diagnostic to the subsegmental level branches of the pulmonary artery and demonstrates no pulmonary embolus. The heart and great vessels are unremarkable. There is no pericardial effusion. Mildly prominent lymph nodes are seen in the right axilla. The lungs demonstrate no consolidation, nodule or other parenchymal abnormality. No pleural effusion is seen. Osseous structures appear normal. There is hepatic steatosis with hepatosplenomegaly. IMPRESSION: 1. No acute pulmonary embolus. 2. Mildly prominent lymph nodes in the right axilla. 3. Hepatic steatosis with hepatosplenomegaly. Dictated by: Dictated on workstation # [id number]
[2022-12-04 18:53] LABS: BILIRUBIN,URINE NEGATIVE (NEGATIVE); CLARITY,URINE CLEAR; COLOR,URINE YELLOW; GLUCOSE, URINE (UA) 2+ (NEGATIVE); KETONES,URINE 2+ (NEGATIVE); LEUKOCYTE ESTERASE ,URINE NEGATIVE (NEGATIVE); NITRITE,URINE NEGATIVE (NEGATIVE); PH,URINE 5.5 (5-9); PROTEIN,URINE TRACE (NEGATIVE)
[2022-12-04 19:00] LABS: BACTERIA,URINE NEGATIVE /HPF; SQUAMOUS EPITHELIAL CELL,UR RARE /HPF
[2022-12-04] MEDS ORDERED: DOXY100T2 PO ×2 (19:12→19:42)
[2022-12-04] MEDS ORDERED: cefTRIAXone INJ 2,000 MG in NS (IVPB) 50 ML IV ONE (19:15)
[2022-12-04 19:37] VITALS: BP 133/81
== END 2022-12-04 19:37 | disposition home or self-care (01) ==
LOC: EDUNIT# 16:53 → ER 16:56
DX: R50.9 Fever, unspecified (principal); R16.2 Hepatomegaly with splenomegaly, not elsewhere classified; K83.1 Obstruction of bile duct; E11.40 Type 2 diabetes mellitus with diabetic neuropathy, unspecified; I10 Essential (primary) hypertension; I82.409 Acute embolism and thrombosis of unspecified deep veins of unspecified lower extremity; Z79.84 Long term (current) use of oral hypoglycemic drugs; Z79.02 Long term (current) use of antithrombotics/antiplatelets; Z79.899 Other long term (current) drug therapy; Z20.822 Contact with and (suspected) exposure to COVID-19
CPT/HCPCS: 36415; 71045; 71275; 80053; 81000; 83605; 85025; 85610; 85730; 86618; 86666; 86668; 86757; 87040; 87088; 87636

== ENCOUNTER 2022-12-06 09:49 | Inpatient (IN) | payer OTHER, MEDICARE ==
[~2022-12-06] VITALS: Ht 187 cm; Wt 104.0 kg
[~2022-12-06 09:49] MED LIST changes: +DOXY100T2 PO
[2022-12-06] MEDS ORDERED: DOXYCYCLINE 100 MG (VIBRAMYCIN) TABLET PO STA (10:20)
--- NOTE | 2022-12-06 10:28 | ED General ---
General Chief Complaint: Fever-Adult/Adol Stated Complaint: DISORIENTED | WEAKNESS | POST OP Nursing Triage Note: pt amb with walker to room 10. pt reports fevers, decreased appetite, malaise, urinary incontinence, and right low back pain since . Source of Information: Patient, Family, RN/MD Exam Limitations: No Limitations History of Present Illness Date Seen by Provider: December 06, 2022 Time Seen by Provider: 09:50 Initial Comments 67-year-old male with past medical history of sge-qzhydqd-efjsgsgcn diabetes, recent DVT secondary to knee replacement on Eliquis coming in as referral from his primary care physician due to concerns for infection. He was seen in the ER 2 days ago due to fever. He is also just been lethargic, taking in less p.o., and slightly confused. He was being treated for tickborne illness on doxycycline and has had 2 doses of that. The tickborne panel is not back yet. Continues to have fever and be confused. Has a mild headache which he states is not unusual for him, denies any neck stiffness, vision changes, weakness, numbness that is focal, chest pain, shortness of breath, abdominal pain, or any other concerns. Allergies and Home Medications Allergies Coded Allergies: No Known Drug Allergies (Unverified , 11/03/22) Patient Home Medication List Home Medication List Reviewed: Yes Apixaban (Eliquis) 5 Mg Tablet, 5 MG PO BID Prescribed by: CORRIE JUDGE on 11/08/22 1054 Cetirizine HCl (Cetirizine HCl) 10 Mg Tablet, 10 MG PO DAILY, (Reported) Entered as Reported by: MARIA FERNANDA CORRIGAN on 01/10/18 1037 Doxycycline Hyclate (Doxycycline Hyclate) 100 Mg Tablet, 100 MG PO BID Prescribed by: Heidi Tran on 12/04/22 194 Dulaglutide (Trulicity) 1.5 Mg/0.5 Ml Pen.injctr, 1.5 MG SQ DAILY, (Reported) Entered as Reported by: SHANNA SANDOVAL on 10/28/22 132 Empagliflozin (Jardiance) 25 Mg Tablet, 25 MG PO DAILY, (Reported) Entered as Reported by: SHANNA SANDOVAL on 10/28/22 132 Lifitegrast (Xiidra) 1 Each Droperette, 1 EACH OP DAILY, (Reported) Entered as Reported by: SANDHYA MENA on 10/11/18 1121 Losartan Potassium (Losartan Potassium) 25 Mg Tablet, 25 MG PO DAILY, (Reported) Entered as Reported by: SHANNA SANDOVAL on 10/28/22 1320 Pregabalin (Lyrica) 75 Mg Capsule, 75 MG PO TID, (Reported) Entered as Reported by: SHANNA SANDOVAL on 10/28/22 1320 Review of Systems Review of Systems Constitutional: see HPI; No fever EENTM: no symptoms reported Respiratory: no symptoms reported Cardiovascular: no symptoms reported Gastrointestinal: no symptoms reported Genitourinary: no symptoms reported Musculoskeletal: no symptoms reported Psychiatric/Neurological: See HPI Hematologic/Lymphatic: No Symptoms Reported Past Htmfhut-Tvjpiz-Bogrdk Hx Patient Social History Tobacco Use?: No Immunizations Up To Date First/Initial COVID19 Vaccinat: 2020 Second COVID19 Vaccination Steve: 2020 Third COVID19 Vaccination Date: 2020 Seasonal Allergies Seasonal Allergies: Yes Past Medical History Surgery/Hospitalization HX: htn, dm, right total knee Surgeries: Yes (neck sx, bilat knee scope,CORANRY IMPLANTS, RIGHT EYE HOLE REPAIR) Eye Surgery, Joint Replacement, Orthopedic Respiratory: Yes Sleep Apnea Currently Using CPAP: No Currently Using BIPAP: No Cardiac: Yes Hypertension Neurological: Yes Neuropathy Genitourinary: No Gastrointestinal: No Musculoskeletal: Yes (RIGHT KNEE OSTEOARTHRITIS) Arthritis, Chronic Back Pain Endocrine: Yes Diabetes, Non-Insulin dep HEENT: Yes (HOLE RIGHT EYE FIXED) Cataract Cancer: No Psychosocial: No Integumentary: No Blood Disorders: No Adverse Reaction/Blood Tranf: No Family Medical History No Pertinent Family Hx Physical Exam Vital Signs Vital Signs - First Documented 12/06/22 10:09 Temp 37.7 Pulse 90 Resp 20 B/P (MAP) 111/66 (81) Pulse Ox 97 O2 Delivery Room Air Capillary Refill : Height, Weight, BMI Height: 6'1.00" Weight: 270lbs. 0.0oz. 122.988906bp; 29.00 BMI Method:Stated General Appearance: No Apparent Distress, WD/WN, Other (negative jolt test) Eyes: Bilateral Eye Normal Inspection, Bilateral Eye PERRL, Bilateral Eye EOMI HEENT: PERRL/EOMI, TMs Normal, Pharynx Normal; No Pharyngeal Erythema (slightly dry tongue), No Tonsillar Exudate, No Tonsillar Enlargement; Other Neck: Full Range of Motion, Normal Inspection, Non Tender, Supple, Other (no meningismus) Respiratory: Chest Non Tender, Lungs Clear, Normal Breath Sounds, No Accessory Muscle Use, No Respiratory Distress Cardiovascular: Regular Rate, Rhythm, No Edema, Normal Peripheral Pulses Gastrointestinal: Normal Bowel Sounds, Non Tender, Soft; No Distended, No Gu arding Back: Normal Inspection, No CVA Tenderness Extremity: Normal Capillary Refill, Normal Inspection, Normal Range of Motion, Non Tender, No Calf Tenderness, No Pedal Edema Neurologic/Psychiatric: Alert, Oriented x3, No Motor/Sensory Deficits, Normal 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, 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 as Tested, Other (normal finger to nose, normal visual flores and visual acuity) Skin: Normal Color, Warm/Dry Focused Exam Lactate Level 12/06/22 10:15: Lactic Acid Level 1.07 Lactic Acid Level Laboratory Tests Test 12/06/22 10:15 Lactic Acid Level 1.07 MMOL/L (0.50-2.00) Progress/Results/Core Measures Suspected Sepsis SIRS Temperature: Pulse: 90 Respiratory Rate: 20 Laboratory Tests 12/06/22 10:15: White Blood Count 2.7L Blood Pressure 111 /66 Mean: 81 12/06/22 10:15: Lactic Acid Level 1.07 Laboratory Tests 12/06/22 10:15: Creatinine 1.02, INR Comment 1.0, Platelet Count 138, Total Bilirubin 1.0 Results/Orders Lab Results Laboratory Tests Test 12/06/22 10:15 Range/Units White Blood Count 2.7 L 4.3-11.0 10^3/uL Red Blood Count 5.28 4.30-5.52 10^6/uL Hemoglobin 15.4 13.3-17.7 g/dL Hematocrit 47 40-54 % Mean Corpuscular Volume 88 80-99 fL Mean Corpuscular Hemoglobin 29 25-34 pg Mean Corpuscular Hemoglobin Concent 33 32-36 g/dL Red Cell Distribution Width 12.9 10.0-14.5 % Platelet Count 138 130-400 10^3/uL Mean Platelet Volume 9.4 9.0-12.2 fL Immature Granulocyte % (Auto) 1 % Neutrophils (%) (Auto) 59 42-75 % Lymphocytes (%) (Auto) 25 12-44 % Monocytes (%) (Auto) 15 H 0-12 % Eosinophils (%) (Auto) 0 0-10 % Basophils (%) (Auto) 0 0-10 % Neutrophils # (Auto) 1.6 L 1.8-7.8 10^3/uL Lymphocytes # (Auto) 0.7 L 1.0-4.0 10^3/uL Monocytes # (Auto) 0.4 0.0-1.0 10^3/uL Eosinophils # (Auto) 0.0 0.0-0.3 10^3/uL Basophils # (Auto) 0.0 0.0-0.1 10^3/uL Immature Granulocyte # (Auto) 0.0 0.0-0.1 10^3/uL Prothrombin Time 13.1 12.2-14.7 SEC INR Comment 1.0 0.8-1.4 Activated Partial Thromboplast Time 34 24-35 SEC Sodium Level 135 135-145 MMOL/L Potassium Level 3.5 L 3.6-5.0 MMOL/L Chloride Level 99 98-107 MMOL/L Carbon Dioxide Level 26 21-32 MMOL/L Anion Gap 10 5-14 MMOL/L Blood Urea Nitrogen 15 7-18 MG/DL Creatinine 1.02 0.60-1.30 MG/DL Estimat Glomerular Filtration Rate 80 BUN/Creatinine Ratio 15 Glucose Level 140 H 70-105 MG/DL Lactic Acid Level 1.07 0.50-2.00 MMOL/L Calcium Level 8.5 8.5-10.1 MG/DL Corrected Calcium 8.7 8.5-10.1 MG/DL Total Bilirubin 1.0 0.1-1.0 MG/DL Aspartate Amino Transf (AST/SGOT) 86 H 5-34 U/L Alanine Aminotransferase (ALT/SGPT) 80 H 0-55 U/L Alkaline Phosphatase 61 40-136 U/L Troponin I < 0.028 <0.028 NG/ML C-Reactive Protein High Sensitivity 0.04 0.00-0.50 MG/DL Total Protein 6.8 6.4-8.2 GM/DL Albumin 3.8 3.2-4.5 GM/DL My Orders Orders - TIA BAEZ MD Cbc With Automated Diff (12/06/22 10:20) Comprehensive Metabolic Panel (12/06/22 10:20) Blood Culture (12/06/22 10:20) Sputum Culture (12/06/22 10:20) Urinalysis (12/06/22 10:20) Urine Culture (12/06/22 10:20) Protime With Inr (12/06/22 10:20) Partial Thromboplastin Time (12/06/22 10:20) Chest 1 View, Ap/Pa Only (12/06/22 10:20) Ed Iv/Invasive Line Start (12/06/22 10:20) Ed Iv/Invasive Line Start (12/06/22 10:20) Ekg Tracing (12/06/22 10:20) Troponin I [place] (12/06/22 10:20) Vital Signs Adult Sepsis Patie Q15M (12/06/22 10:20) O2 (12/06/22 10:20) Remove Rings In Anticipation O (12/06/22 10:20) Lactic Acid Analyzer (12/06/22 10:20) Ns Iv 1000 Ml (Sodium Chloride 0.9%) (12/06/22 10:30) Vancomycin Injection (Vancomycin Injecti (12/06/22 10:30) Ceftriaxone Inj (Rocephin Inj) (12/06/22 10:30) Ampicillin For Iv Use (Ampicillin For (12/06/22 10:30) Doxycycline Hyclate Tablet (Vibramycin T (12/06/22 10:20) Hs C Reactive Protein (12/06/22 10:20) Ct Head Wo (12/06/22 10:20) Acetaminophen Tablet (Tylenol Tablet) (12/06/22 10:30) Medications Given in ED Current Medications Medications Dose Ordered Sig/Melanie Route Start Time Stop Time Status Last Admin Dose Admin Acetaminophen 1,000 mg ONCE ONCE PO 12/06/22 10:30 12/06/22 10:31 DC 12/06/22 10:51 1,000 MG Ceftriaxone Sodium 2000 mg/ Sodium Chloride 50 ml @ 100 mls/hr ONCE ONCE IV 12/06/22 10:30 12/06/22 10:59 DC 12/06/22 10:51 100 MLS/HR Vital Signs/I&O 12/06/22 10:09 Temp 37.7 Pulse 90 Resp 20 B/P (MAP) 111/66 (81) Pulse Ox 97 O2 Delivery Room Air Capillary Refill : Blood Pressure Mean: 81 Progress Note : Progress Note 67-year-old male with above history coming in due to fever. ABCs were intact and vitals were stable on presentation. An IV was placed and basic labs were obtained including septic work-up. Lactic acid normal, white blood cell count low, creatinine normal, elevated AST and ALT mildly, normal platelets. Chest x- ray my interpretation with no obvious pneumonia. EKG ordered and interpreted by me showing no acute ischemic changes. CT head ordered and interpreted by me showing no obvious hemorrhage or large mass. I discussed with the patient doing a lumbar puncture, given he is on Eliquis I think the risk would be too great. Specifically, he does not have any meningismus and had a negative jolt test making meningitis unlikely. He also states he had a lumbar puncture for his knee replacement and it took an anesthesiologist more than 30 minutes with multiple attempts. I think the risk of forming a hematoma would be too great. We will empirically treat him with ceftriaxone 2 g, ampicillin, and vancomycin. I will also add doxycycline for potential tickborne illness since those labs are pending. I then contacted Dr. Judge who will admit the patient for further evaluation and management while the cultures are pending. ECG Initial ECG Impression Date: December 06, 2022 Initial ECG Impression Time: 10:33 Initial ECG Rate: 86 Initial ECG Rhythm: Normal Sinus Comment Narrow QRS, no STEMI Diagnostic Imaging Diagonstic Imaging: Xray (chest), CT (head) Comments [facility] [place] NAME: JOSE OLSONGONZÁLEZ Bailey [facility] REC#: [id number] PT STATUS: REG ER : 1955 PHYSICIAN: TIA BAEZ MD ADMIT DATE: 12/06/22/ER Draft Date of Exam:12/06/22 CHEST 1 VIEW, AP/PA ONLY INDICATION: Altered mental status. EXAMINATION: Portable chest at 10:51 a.m. FINDINGS: Heart size and pulmonary vascularity are normal. Lungs are clear. There are no effusions or pneumothoraces. IMPRESSION: No acute abnormalities in the chest. Dictated on workstation # [id number] Dict: 12/06/22 1049 Trans: 12/06/22 1052 AS6 [id number] Interpreted by: CLARK ROTH MD Electronically signed by: [facility] [place] NAME: DOROTHY OLSON [facility] REC#: [id number] PT STATUS: REG ER : 1955 PHYSICIAN: TIA BAEZ MD ADMIT DATE: 12/06/22/ER Draft Date of Exam:12/06/22 CT HEAD WO CLINICAL INDICATION: Patient with fevers, decreased appetite, malaise, urinary incontinence, and right low back pain since . EXAM: Axial CT scan of the brain without IV contrast with coronal and sagittal reformatted images. Auto Exposure Controls were utilized during the CT exam to meet ALARA standards for radiation dose reduction. COMPARISON: CT scan of the head and cervical spine without contrast dated 02/04/2013. FINDINGS: There is no evidence of acute cerebral infarct, intracranial hemorrhage, or gross mass effect. The brain parenchymal volume appears appropriate for patient's age. The degree of brain parenchymal volume loss has not significantly changed compared to the prior head CT. There is normal donald-white matter distinction. There is no significant midline shift or herniation. There is prominence of the lateral ventricles, left side more than the right, which appears slightly prominent for the degree of brain parenchymal volume loss. These findings were also noted on the comparison head CT. There is no hydrocephalus. The basal cisterns are unremarkable. The skull, extracranial soft tissue, and orbits are unremarkable. The paranasal sinuses are unremarkable. Temporal bones show no significant abnormality. IMPRESSION: There is no CT evidence of an acute intracranial process. Dictated on workstation # [id number] Dict: 12/06/22 1109 Trans: 12/06/22 1118 [id number] Interpreted by: JUNIOR FINLEY MD Electronically signed by: Departure Impression Primary Impression: Fever Qualified Codes: R50.81 - Fever presenting with conditions classified elsewhere Additional Impressions: Tick bite Qualified Codes: S20.462D - Insect bite (nonvenomous) of left back wall of thorax, subsequent encounter; W57.XXXD - Bitten or stung by nonvenomous insect and other nonvenomous arthropods, subsequent encounter AMS (altered mental status) Qualified Codes: R40.4 - Transient alteration of awareness Disposition: ADMITTED INPATIENT Condition: Stable Admissions Decision to Admit Reason: Admit from ER (General) Decision to Admit/Date: December 06, 2022 Time/Decision to Admit Time: 11:15 Departure-Patient Inst. Referrals: MARCO ANTONIO PARNELL MD (PCP/Family) Primary Care Physician TIA BAEZ MD December 06, 2022 10:28
[2022-12-06 10:30] LABS: BASOPHILS % (AUTO) 0 % (0-10); EOSINOPHILS % (AUTO) 0 % (0-10); HEMATOCRIT 47 % (40-54); HEMOGLOBIN 15.4 g/dL (13.3-17.7); LYMPHOCYTES # (AUTO) 0.7 10^3/uL (1.0-4.0); LYMPHOCYTES % (AUTO) 25 % (12-44); MEAN CORPUSCULAR HEMOGLOBIN 29 pg (25-34); MEAN CORPUSCULAR HGB CONC 33 g/dL (32-36); MEAN CORPUSCULAR VOLUME 88 fL (80-99); MEAN PLATELET VOLUME 9.4 fL (9.0-12.2); MONOCYTES # (AUTO) 0.4 10^3/uL (0.0-1.0); MONOCYTES % (AUTO) 15 % (0-12); NEUTROPHILS # (AUTO) 1.6 10^3/uL (1.8-7.8); NEUTROPHILS % (AUTO) 59 % (42-75); PLATELET COUNT 138 10^3/uL (130-400); WHITE BLOOD COUNT 2.7 10^3/uL (4.3-11.0)
[2022-12-06] MEDS ORDERED: NS IV 1000 ML 1,000 ML IV SCH (10:30)
[2022-12-06] MEDS ORDERED: ACETAMINOPHEN 500 MG TAB (TYLENOL) PO ONE (10:30)
[2022-12-06] MEDS ORDERED: AMPICILLIN FOR IV USE 2,000 MG in WATER (STERILE) FOR INJECTION 14.8 ML IV ONE (10:30)
[2022-12-06] MEDS ORDERED: cefTRIAXone INJ 2,000 MG in NS (IVPB) 50 ML IV ONE (10:30)
[2022-12-06 10:39] LABS: ALBUMIN 3.8 GM/DL (3.2-4.5); CHLORIDE 99 MMOL/L (98-107); POTASSIUM 3.5 MMOL/L (3.6-5.0); SODIUM 135 MMOL/L (135-145)
[2022-12-06 10:41] LABS: CALCIUM 8.5 MG/DL (8.5-10.1)
[2022-12-06 10:42] LABS: GLUCOSE 140 MG/DL (70-105); TOTAL PROTEIN 6.8 GM/DL (6.4-8.2)
[2022-12-06 10:43] LABS: CARBON DIOXIDE 26 MMOL/L (21-32)
[2022-12-06 10:44] LABS: PROTHROMBIN TIME PATIENT 13.1 SEC (12.2-14.7)
[2022-12-06 10:45] LABS: ALKALINE PHOSPHATASE 61 U/L (40-136); CREATININE SERUM 1.02 MG/DL (0.60-1.30); GFR ESTIMATED 80
[2022-12-06 10:46] LABS: BUN/CREATININE RATIO 15
[2022-12-06 10:48] LABS: ALANINE AMINOTRANSFERASE 80 U/L (0-55)
--- NOTE | 2022-12-06 10:52 | Diagnostic Imaging Report ---
INDICATION: Altered mental status. EXAMINATION: Portable chest at 10:51 a.m. FINDINGS: Heart size and pulmonary vascularity are normal. Lungs are clear. There are no effusions or pneumothoraces. IMPRESSION: No acute abnormalities in the chest. Dictated by: Dictated on workstation # [id number]
--- NOTE | 2022-12-06 11:19 | Diagnostic Imaging Report ---
CLINICAL INDICATION: Patient with fevers, decreased appetite, malaise, urinary incontinence, and right low back pain since . EXAM: Axial CT scan of the brain without IV contrast with coronal and sagittal reformatted images. Auto Exposure Controls were utilized during the CT exam to meet ALARA standards for radiation dose reduction. COMPARISON: CT scan of the head and cervical spine without contrast dated 02/04/2013. FINDINGS: There is no evidence of acute cerebral infarct, intracranial hemorrhage, or gross mass effect. The brain parenchymal volume appears appropriate for patient's age. The degree of brain parenchymal volume loss has not significantly changed compared to the prior head CT. There is normal donald-white matter distinction. There is no significant midline shift or herniation. There is prominence of the lateral ventricles, left side more than the right, which appears slightly prominent for the degree of brain parenchymal volume loss. These findings were also noted on the comparison head CT. There is no hydrocephalus. The basal cisterns are unremarkable. The skull, extracranial soft tissue, and orbits are unremarkable. The paranasal sinuses are unremarkable. Temporal bones show no significant abnormality. IMPRESSION: There is no CT evidence of an acute intracranial process. Dictated by: Dictated on workstation # [id number]
[2022-12-06] MEDS ORDERED: WATER (STERILE) FOR INJECTION 20 ML ONE (11:50)
[2022-12-06] MEDS ORDERED: ONDANSETRON 4 MG/2 ML (SDV) Z0FRAN IVP ONE (12:45)
[2022-12-06] MEDS: VANCOMYCIN INJECTION 1,000 MG in NS (IVPB) 250 ML IV SCH ×2 (12:50→14:33)
[2022-12-06 13:19] LABS: BILIRUBIN,URINE NEGATIVE (NEGATIVE); CLARITY,URINE CLEAR; COLOR,URINE YELLOW; GLUCOSE, URINE (UA) 3+ (NEGATIVE); KETONES,URINE NEGATIVE (NEGATIVE); LEUKOCYTE ESTERASE ,URINE NEGATIVE (NEGATIVE); NITRITE,URINE NEGATIVE (NEGATIVE); PROTEIN,URINE 1+ (NEGATIVE)
[2022-12-06 13:32] LABS: BACTERIA,URINE NEGATIVE /HPF; SQUAMOUS EPITHELIAL CELL,UR RARE /HPF; WBC,URINE RARE /HPF
[2022-12-06] MEDS ORDERED: ONDANSETRON 4 MG/2 ML (SDV) Z0FRAN IV PRN ×2 (14:00→15:00)
--- NOTE | 2022-12-06 14:04 | History & Physical-Hospitalist ---
History of Present Illness HPI/Chief Complaint Patient is 67-year-old male who recently underwent a right total knee replacement and had a postoperative DVT who presented to the emergency department due to fever and malaise. His reports that since his surgery he has not been mentally back to himself. He states that he has had decreased endurance and stamina with slowed speech and some word finding difficulty. His states that he seems like he is in a stupor and will just blankly stare at her sometimes instead of responding. She reports poor oral intake. He also complains of some urinary incontinence but describes it as inability to get to the bathroom in time. He had a fever on 12/04 of 101.7 and was seen in the ER yesterday. He reports a history of tick bites and was started on doxycycline and was discharged home. He continues to not feel well so he called his PCP who recommended returned to the ER for evaluation for meningitis/encephalitis. He is on Eliquis but his held his dose last night because she was worried he was having bleeding complications so last dose was 514 AM. He was admitted for further workup. Source: patient Date Seen 12/06/22 Time Seen by a Provider: 13:45 Attending Physician Neeraj Bustillos MD PCP Admitting Physician: Corrie Judge MD Attending Physician: Corrie Judge MD Referring Physician Date of Admission December 06, 2022 at 13:21 Home Medications & Allergies Home Medications Reviewed patient Home Medication Reconciliation performed by pharmacy medication reconciliations audio/video technician and/or nursing. Patients Allergies have been reviewed. Allergies Allergies Coded Allergies No Known Drug Allergies (Unverified11/03/22) Past Bbmsiet-Zyukmz-Ckqpfd Hx Patient Social History Marrital Status: Employed/Student: employed Tobacco Use?: No Substance use?: No Alcohol Use?: No Pt feels they are or have been: No Immunizations Up To Date First/Initial COVID19 Vaccinat: 2020 Second COVID19 Vaccination Steve: 2020 Tetanus Booster (TDap): Less Than 5 Years Hepatitis A: No Hepatitis B: No Seasonal Allergies Seasonal Allergies: Yes Current Status Advance Directives: No Communicates: Verbally Primary Language: Tajik Preferred Spoken Language: Tajik Past Medical History Surgeries: Eye Surgery, Joint Replacement, Orthopedic Sleep Apnea Currently Using CPAP: No Currently Using BIPAP: No Hypertension Neuropathy Arthritis, Chronic Back Pain Diabetes, Non-Insulin dep Cataract Blood Disorders: No Adverse Reaction/Blood Tranf: No Family Medical History Reviewed Nursing Family Hx No Pertinent Family Hx Review of Systems Constitutional: see HPI Physical Exam Physical Exam Vital Signs Vital Signs - First Documented 12/06/22 10:09 Temp 37.7 Pulse 90 Resp 20 B/P (MAP) 111/66 (81) Pulse Ox 97 O2 Delivery Room Air Capillary Refill : Height, Weight, BMI Height: 6'1.00" Weight: 270lbs. 0.0oz. 122.848996fi; 29.00 BMI Method:Stated General Appearance: No Apparent Distress (thought appears to not feel well), WD/WN Respiratory: Lungs Clear, No Respiratory Distress Cardiovascular: Regular Rate, Rhythm, No Murmur Gastrointestinal: Normal Bowel Sounds, Soft Extremity: No Calf Tenderness, No Pedal Edema, Other (incision healing well- no erythema or drainage) Neurologic/Psychiatric: Alert, Oriented x3 (slow responses though especially compared to my last visit with him after his knee surgery) Results Results/Procedures Labs Laboratory Tests 12/06/22 10:15 12/07/22 05:39 12/08/22 05:25 Patient resulted labs reviewed. Imaging: Reviewed Imaging Report [facility] [place] [place] NAME: DOROTHY LOSON [facility] REC#: [id number] PT STATUS: REG ER : 1955 PHYSICIAN: TIA BAEZ MD ADMIT DATE: 12/06/22/ER Signed Date of Exam:12/06/22 CHEST 1 VIEW, AP/PA ONLY INDICATION: Altered mental status. EXAMINATION: Portable chest at 10:51 a.m. FINDINGS: Heart size and pulmonary vascularity are normal. Lungs are clear. There are no effusions or pneumothoraces. IMPRESSION: No acute abnormalities in the chest. Dictated by: Dictated on workstation # [id number] Dict: 12/06/22 1049 Trans: 12/06/22 1304 AS6 [id number] Interpreted by: CLARK ROTH MD Electronically signed by: CLARK ROTH MD 12/06/22 1304 [facility] [place] [place] NAME: DOROTHY OLSON MED REC#: [id number] PT STATUS: REG ER : 1955 PHYSICIAN: TIA BAEZ MD ADMIT DATE: 12/06/22/ER Draft Date of Exam:12/06/22 CT HEAD WO CLINICAL INDICATION: Patient with fevers, decreased appetite, malaise, urinary incontinence, and right low back pain since . EXAM: Axial CT scan of the brain without IV contrast with coronal and sagittal reformatted images. Auto Exposure Controls were utilized during the CT exam to meet ALARA standards for radiation dose reduction. COMPARISON: CT scan of the head and cervical spine without contrast dated 02/04/2013. FINDINGS: There is no evidence of acute cerebral infarct, intracranial hemorrhage, or gross mass effect. The brain parenchymal volume appears appropriate for patient's age. The degree of brain parenchymal volume loss has not significantly changed compared to the prior head CT. There is normal donald-white matter distinction. There is no significant midline shift or herniation. There is prominence of the lateral ventricles, left side more than the right, which appears slightly prominent for the degree of brain parenchymal volume loss. These findings were also noted on the comparison head CT. There is no hydrocephalus. The basal cisterns are unremarkable. The skull, extracranial soft tissue, and orbits are unremarkable. The paranasal sinuses are unremarkable. Temporal bones show no significant abnormality. IMPRESSION: There is no CT evidence of an acute intracranial process. Dictated on workstation # [id number] Dict: 12/06/22 1109 Trans: 12/06/22 1118 [id number] Interpreted by: JUNIOR FINLEY MD Electronically signed by: Assessment/Plan Admission Diagnosis Fever- rule out meningitis Admission Status: Inpatient Order (span 2 midnights) Reason for Inpatient Admission: see below Assessment and Plan Fever- rule out meningitis AMS Does not seem to clinically consistent with meningitis but given ever and symptoms will cover Await cultures Cannot get LP today due to anticoagulation Await tick panel Recent DVT Recent TKA Saw Dr Wei last week reports never really mentally back to baseline after surgery Will hold eliquis for potential LP Discussed risks and benefits with him given recent DVT T2DM Sliding scale insulin HTN Continue home meds when med rec done DVT ppx: hold eliquis for potential LP Diagnosis/Problems Diagnosis/Problems (1) AMS (altered mental status) Status: Acute Qualifiers: Altered mental status type: transient alteration of awareness Qualified Codes: R40.4 - Transient alteration of awareness (2) Tick bite Status: Acute Qualifiers: Encounter type: subsequent encounter Site of tick bite: thoracic wall Front or back of thoracic wall: back Thoracic wall location detail: left Qualified Codes: S20.462D - Insect bite (nonvenomous) of left back wall of thorax, subsequent encounter; W57.XXXD - Bitten or stung by nonvenomous insect and other nonvenomous arthropods, subsequent encounter (3) Fever Status: Acute Qualifiers: Fever type: due to other condition Qualified Codes: R50.81 - Fever presenting with conditions classified elsewhere (4) Acute deep vein thrombosis (DVT) of popliteal vein of right lower extremity Status: Acute (5) Diabetes type 2, controlled Status: Acute (6) HTN (hypertension) Status: Chronic (7) S/P total knee arthroplasty Status: Acute CORRIE JUDGE MD December 06, 2022 14:04
[2022-12-06 14:10] VITALS: BP 103/62
[2022-12-06] MEDS: NS IV 1000 ML 1,000 ML IV SCH ×2 (14:33→20:23)
[2022-12-06] MEDS ORDERED: BENZONATATE 100 MG (TESSALON) CAPSULE PO PRN (15:00)
[2022-12-06] MEDS ORDERED: ACETAMINOPHEN 500 MG TAB (TYLENOL) PO PRN (15:00)
[2022-12-06] MEDS ORDERED: ANTACID SUSP 30 ML UDC (MYLANTA) PO PRN (15:00)
[2022-12-06] MEDS ORDERED: MILK OF MAGNESIA 400 MG/5 ML 30 ML UDC PO PRN (15:00)
[2022-12-06] MEDS ORDERED: MELATONIN 3 MG TABLET PO PRN (15:00)
--- NOTE | 2022-12-06 15:00 | Physical Therapy Evaluation ---
PT Evaluation-General Medical Diagnosis Admission Date December 06, 2022 at 13:21 Medical Diagnosis: Fever, sepsis, confusion, DVT secondary to RTKA Onset Date: November 30, 2022 Therapy Diagnosis Therapy Diagnosis: Gait deficit, strength deficit Height/Weight Height (Feet): 6 Height (Inches): 1.00 Weight (Pounds): 270 Weight (Ounces): 0.0 Precautions Precautions/Isolations: Droplet Isolation Weight Bear Status Right Lower Extremity: Right Weight Bearing/Tolerated Left Lower Extremity: Left Full Weight Bearing Referral Physician: Dr. Judge Reason for Referral: Evaluation/Treatment Medical History Reviewed History: Yes Social History Home: [facility] Current Living Status: Spouse Entry Into Home: Stairs With Railing PT Steps Into Home: 4 PT Steps Inside Home: 15 Prior Prior Level of Function SCALE: Activities may be completed with or without assistive devices. 5-Floempqylp-hinling completes the activity by him/herself with no assistance from a helper. 5-Set-up or Clean-up Assistance-helper sets up or cleans up; patient completes activity. [place] assists only prior to or following the activity. 4-Supervision or Touching Assistance-helper provides verbal cues and/or touching/steadying and/or contact guard assistance as patient completes activity. Assistance may be provided throughout the activity or intermittently. 3-Partial/Moderate Assistance-helper does LESS THAN HALF the effort. [place] lifts, holds or supports trunk or limbs, but provides less than half the effort. 2-Substantial/Maximal Assistance-helper does MORE THAN HALF the effort. [place] lifts or holds trunk or limbs and provides more than half the effort. 6-Shaqfnrbo-aebrze does ALL the effort. Patient does none of the effort to complete the activity. Or, the assistance of 2 or more helpers is required for the patient to complete the activity. If activity was not attempted, code reason: 7-Patient Refused. 9-Not Applicable-not attempted and the patient did not perform the activity before the current illness, exacerbation or injury. 10-Not Attempted due to Environmental Limitations-(lack of equipment, weather restraints, etc.). 88-Not Attempted due to Medical Conditions or Safety Concerns. Bed Mobility: 6 Transfers (B,C,W/C): 6 Gait: 6 Stairs: 6 Indoor Mobility (Ambulation): Independent Stairs: Independent Prior Devices Use: None Prior Device Use: Has FWW at home PT Evaluation-Current Subjective Patient lying supine in bed upon PT arrival, in the room, agreeable to treatment. Patient rates pain at 2/10 in right knee. He reports he was progressing well with PT until 11/30/22 when he began to experience severe fatigue, confusion and inability to get out of bed. Objective Patient Orientation: Person, Place, Time, Situation Attachments: IV ROM/Strength ROM Lower Extremities Right knee extension lacks 10 degrees from neutral in sitting and ~75 degrees flexion in sitting. All other right LE and LLE ROMs WFLs. Strength Lower Extremities Left LE 4/5 all planes; Right knee flexion and extension 3/5; all other right LE planes 4-/5 Sensory Vision: Functional Hearing: Functional Sensation Right Lower Extremit: Intact Sensation Left Lower Extremity: Intact Transfers Roll Left to Right (QC): 4 Sit to Lying (QC): 4 Lying to Sitting/Side of Bed(Q: 4 Sit to Stand (QC): 2 Gait Does the Patient Walk?: Yes Mode of Locomotion: Walk Anticipated Mode of Locomotion: Walk Walk 10 feet (QC): 4 Distance: 28' Gait Assistive Device: FWW Balance Sitting Static: Good Sitting Dynamic: Good Standing Static: Fair Standing Dynamic: Fair Assessment/Needs Patient tolerated treatment well. He was hesitant to get out of bed and reports he hasn't been out of bed since last Tuesday, however was able to perform all bed mobility with SBA. He required max A for sit to stand from the bed, however once standing required SBA for balance. Patient ambulates 4 feet forwards and 4 feet backwards x 7 with FWW, with CGA. Patient sitting EOB post treatment with all needs met, nursing notified, in the room, call light in hand. 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 Court Judge Goals County Court Judge Goals PT [facility] Goals Time Frame: Jan 01, 2023 Roll Left & Right (QC): 6 Sit to Lying (QC): 6 Lying-Sitting on Side/Bed(QC): 6 Sit to Stand (QC): 6 Chair/Fvi-hb-Evenl Xfer(QC): 6 Toilet Transfer (QC): 6 Does the Patient Walk: Yes Walk 10 feet (QC): 6 Walk 50ft with 2 Turns (QC): 6 Walk 150 ft (QC): 6 1 Step (curb) (QC): 4 4 Steps (QC): 4 12 Steps (QC): 4 PT Plan Problem List Problem List: Activity Tolerance, Functional Strength, Safety, Balance, Gait, Transfer, Bed Mobility, ROM Treatment/Plan Treatment Plan: Continue Plan of Care Treatment Plan: Bed Mobility, Education, Functional Activity Theresa, Functional Strength, Group Therapy, Gait, Safety, Therapeutic Exercise, Transfers Treatment Duration: Jan 21, 2023 Frequency: 6 times per week Estimated Hrs Per Day: .25 hour per day Patient and/or Family Agrees t: Yes Safety Risks/Education Patient Education: Gait Training, Transfer Techniques Teaching Recipient: Patient Teaching Methods: Demonstration, Discussion Response to Teaching: Verbalize Understanding, Return Demonstration Time Time In: 1430 Time Out: 1455 DATE: December 06, 2022 Total Billed Treatment Time: 25 Total Billed Treatment Visit, KAT CONNER JOHN A PT December 06, 2022 15:00
[2022-12-06] MEDS ORDERED: DOXY100T2 PO (15:21)
[2022-12-06] MEDS ORDERED: ACET-2267 PO (15:21)
[2022-12-06] MEDS ORDERED: APIX5TAB PO (15:21)
[2022-12-06] MEDS: AMPICILLIN 2,000 MG/NS 100 ML IVPB IV SCH ×6 (15:58→23:33)
[2022-12-06 16:05] VITALS: BP 103/56
--- NOTE | 2022-12-06 16:15 | Occupational Therapy Eval ---
OT Evaluation-General/PLF Medical Diagnosis Admission Date December 06, 2022 at 13:21 Medical Diagnosis: Fever, sepsis, confusion, DVT secondary to RTKA Onset Date: November 30, 2022 Therapy Diagnosis Therapy Diagnosis: general weakness Height/Weight Height (Feet): 6 Height (Inches): 1.00 Weight (Pounds): 270 Weight (Ounces): 0.0 Precautions Precautions/Isolations: Droplet Isolation Referral Physician: Dr. Judge Referral Reason: Evaluation/Treatment Medical History Additional Medical History Patient is 67-year-old male who recently underwent a right total knee replacement and had a postoperative DVT who presented to the emergency department due to fever and malaise. His reports that since his surgery he has not been mentally back to himself. He states that he has had decreased endurance and stamina with slowed speech and some word finding difficulty. His states that he seems like he is in a stupor and will just blankly stare at her sometimes instead of responding. She reports poor oral intake. He also complains of some urinary incontinence but describes it as inability to get to the bathroom in time. He had a fever on 12/04 of 101.7 and was seen in the ER yesterday. He reports a history of tick bites and was started on doxycycline and was discharged home. He continues to not feel well so he called his PCP who recommended returned to the ER for evaluation for meningitis/encephalitis. He is on Eliquis but his held his dose last night because she was worried he was having bleeding complications so last dose was 5/14 AM. He was admitted for further workup. Reviewed History: Yes Social History Home: Mult[facility] Current Living Status: Spouse Entry Into Home: Stairs With Railing Steps Into Home: 4 Steps Inside Home: 15 ADL-Prior Level of Function SCALE: Activities may be completed with or without assistive devices. 5-Twxmbegpwn-vlpdppm completes the activity by him/herself with no assistance from a helper. 5-Set-up or Clean-up Assistance-helper sets up or cleans up; patient completes activity. [place] assists only prior to or following the activity. 4-Supervision or Touching Assistance-helper provides verbal cues and/or touching/steadying and/or contact guard assistance as patient completes activity. Assistance may be provided throughout the activity or intermittently. 3-Partial/Moderate Assistance-helper does LESS THAN HALF the effort. [place] lifts, holds or supports trunk or limbs, but provides less than half the effort. 2-Substantial/Maximal Assistance-helper does MORE THAN HALF the effort. [place] lifts or holds trunk or limbs and provides more than half the effort. 2-Fxqdxgquz-zsrmbt does ALL the effort. Patient does none of the effort to complete the activity. Or, the assistance of 2 or more helpers is required for the patient to complete the activity. If activity was not attempted, code reason: 7-Patient Refused. 9-Not Applicable-not attempted and the patient did not perform the activity before the current illness, exacerbation or injury. 10-Not Attempted due to Environmental Limitations-(lack of equipment, weather restraints, etc.). 88-Not Attempted due to Medical Conditions or Safety Concerns. Self Care: Independent Functional Cognition: Independent Drive Self: No OT Current Status Subjective Agreeable to OT Mental Status/Objective Patient Orientation: Person, Place, Time, Situation Attachments: IV Current Upper Extremity ROM BUE ROM WFLS Upper Extremity Coordination intact Upper Extremity Sensation intact Upper Extremity Strength +4/5 ADL-Treatment Eating (QC): 6 Oral Hygiene (QC): 5 Shower/Bathe Self (QC): 7 Upper Body Dressing (QC): 4 Lower Body Dressing (QC): 4 On/Off Footwear (QC): 4 Toileting Hygiene (QC): 7 (use of urinal w/ spouse) Education OT Patient Education: Modified ADL techniques, Progress toward Goal/Update tx plan, Purpose of tx/functional activities, Reviewed precautions, Rehab process, Safety issues, Transfer techniques, Use of adapted equipment Teaching Recipient: Patient, Significant Other Teaching Methods: Demonstration, Discussion Response to Teaching: Reinforcement Needed OT Project Structural Engineer Goals [facility] Goals Eating (QC): 6 Oral Hygiene (QC): 6 Toileting Hygiene (QC): 6 Shower/Bathe Self (QC): 6 Upper Body Dressing (QC): 6 Lower Body Dressing (QC): 6 On/Off Footwear (QC): 6 1=Demonstrate adherence to instructed precautions during ADL tasks. 2=Patient will verbalize/demonstrate understanding of assistive devices/modifications for ADL. 3=Patient will improve strength/tolerance for activity to enable patient to perform ADL's. OT Education/Plan Problem List/Assessment Assessment: Decreased Activ Tolerance, Impaired Self-Care Skills Discharge Recommendations Plan/Recommendations: Continue POC Treatment Plan/Plan of Care Treatment,Training & Education: Yes Patient would benefit from OT for education, treatment and training to promote independence in ADL's, mobility, safety and/or upper extremity function for ADL's. Plan of Care: ADL Retraining, Functional Mobility, Group Exercise/Act as Ind, UE Funct Exercise/Act Treatment Duration: December 11, 2022 Frequency: 3 times per week (3-5 times per week) Estimated Hrs Per Day: .25 hour per day Agreement: Yes Rehab Potential: Good Time Start Time: 15:50 Stop Time: 16:10 DATE: December 06, 2022 Total Time Billed (hr/min): 20 Billed Treatment Time EVM 20 min LATOSHA LUNDBERG OT December 06, 2022 16:15
[2022-12-06] MEDS: inSUlin ASPART (NovoLOG) 1 UNIT/0.01 ML (CHARGE PER UNIT) SC SCH ×2 (17:18→21:00)
[2022-12-06] MEDS: ACETAMINOPHEN 500 MG TAB (TYLENOL) PO PRN (18:41)
[2022-12-06] MEDS: cefTRIAXone 2,000 MG/NS 50 ML IVPB IV SCH ×2 (20:23)
[2022-12-06] MEDS: DOXYCYCLINE 100 MG (VIBRAMYCIN) TABLET PO SCH (20:23)
[2022-12-06 20:29] VITALS: BP 110/62
[2022-12-06 23:45] VITALS: BP 132/66
[2022-12-07] MEDS: VANCOMYCIN 1250 MG/NS 250 ML PREMIX IV SCH ×2 (01:09→12:11)
[2022-12-07] MEDS: ACETAMINOPHEN 500 MG TAB (TYLENOL) PO PRN ×3 (01:09→20:27)
[2022-12-07] MEDS: AMPICILLIN 2,000 MG/NS 100 ML IVPB IV SCH ×12 (03:34→23:57)
[2022-12-07 03:37] VITALS: BP 130/74
[2022-12-07 05:47] LABS: BASOPHILS % (AUTO) 1 % (0-10); EOSINOPHILS % (AUTO) 0 % (0-10); MEAN CORPUSCULAR HEMOGLOBIN 29 pg (25-34); MEAN PLATELET VOLUME 9.1 fL (9.0-12.2); MONOCYTES # (AUTO) 0.2 10^3/uL (0.0-1.0)
[2022-12-07 05:48] LABS: HEMATOCRIT 42 % (40-54); HEMOGLOBIN 14.2 g/dL (13.3-17.7); LYMPHOCYTES # (AUTO) 0.7 10^3/uL (1.0-4.0); LYMPHOCYTES % (AUTO) 42 % (12-44); MEAN CORPUSCULAR HGB CONC 34 g/dL (32-36); MEAN CORPUSCULAR VOLUME 87 fL (80-99); MONOCYTES % (AUTO) 11 % (0-12); NEUTROPHILS # (AUTO) 0.8 10^3/uL (1.8-7.8); NEUTROPHILS % (AUTO) 46 % (42-75); PLATELET COUNT 104 10^3/uL (130-400); WHITE BLOOD COUNT 1.7 10^3/uL (4.3-11.0)
[2022-12-07 06:10] LABS: ALBUMIN 3.3 GM/DL (3.2-4.5); POTASSIUM 3.1 MMOL/L (3.6-5.0)
[2022-12-07 06:11] LABS: CALCIUM 7.9 MG/DL (8.5-10.1)
[2022-12-07 06:13] LABS: TOTAL PROTEIN 5.8 GM/DL (6.4-8.2)
[2022-12-07 06:14] LABS: BILIRUBIN,TOTAL 0.6 MG/DL (0.1-1.0)
[2022-12-07] MEDS: inSUlin ASPART (NovoLOG) 1 UNIT/0.01 ML (CHARGE PER UNIT) SC SCH ×4 (06:15→20:28)
[2022-12-07 06:16] LABS: CREATININE SERUM 0.69 MG/DL (0.60-1.30)
[2022-12-07 07:37] VITALS: BP 125/75
[2022-12-07] MEDS: DOXYCYCLINE 100 MG (VIBRAMYCIN) TABLET PO SCH (08:40)
[2022-12-07] MEDS: cefTRIAXone 2,000 MG/NS 50 ML IVPB IV SCH ×4 (08:41→20:27)
[2022-12-07] MEDS ORDERED: KCL 20 MEQ TAB (K-DUR) PO NR (10:30)
--- NOTE | 2022-12-07 10:42 | Physical Therapy Daily Note ---
PT Daily Note-Current Subjective Patient agrees to PT. Pain Numeric Pain Scale: 5-Moderate Pain Location: Right Location Body Site: Knee Pain Description: Chronic Section J - Health Conditions 1. Rarely or not at all 2. Occasionally 3. Frequently 4. Almost constantly 8. Unable to answer Pain Effect on Sleep: 2 Pain Interference with Therapy: 2 Pain Interference w/Day-to-Day: 2 Mental Status Patient Orientation: Normal For Age Attachments: IV Transfers SCALE: Activities may be completed with or without assistive devices. 9-Xspynazcbu-iccwsbd completes the activity by him/herself with no assistance from a helper. 5-Set-up or Clean-up Assistance-helper sets up or cleans up; patient completes activity. [place] assists only prior to or following the activity. 4-Supervision or Touching Assistance-helper provides verbal cues and/or touching/steadying and/or contact guard assistance as patient completes activity. Assistance may be provided throughout the activity or intermittently. 3-Partial/Moderate Assistance-helper does LESS THAN HALF the effort. [place] lifts, holds or supports trunk or limbs, but provides less than half the effort. 2-Substantial/Maximal Assistance-helper does MORE THAN HALF the effort. [place] lifts or holds trunk or limbs and provides more than half the effort. 2-Hhahnslcy-sgumrl does ALL the effort. Patient does none of the effort to complete the activity. Or, the assistance of 2 or more helpers is required for the patient to complete the activity. If activity was not attempted, code reason: 7-Patient Refused. 9-Not Applicable-not attempted and the patient did not perform the activity before the current illness, exacerbation or injury. 10-Not Attempted due to Environmental Limitations-(lack of equipment, weather restraints, etc.). 88-Not Attempted due to Medical Conditions or Safety Concerns. Lying to Sitting/Side of Bed(Q: 6 Sit to Stand (QC): 4 Chair/Uvi-zo-Afyma Xfer(QC): 4 Weight Bearing Right Lower Extremity: Right Weight Bearing/Tolerated Left Lower Extremity: Left Full Weight Bearing Gait Training Distance: 200' Walk 10 feet (QC): 4 Walk 50 ft with 2 Turns(QC): 4 Walk 150 ft (QC): 4 Gait Assistive Device: FWW steady, reciprocal pattern Exercises Supine Ex: Ankle pumps, Quad Set, Heel Slides, Straight leg raise Supine Reps: 15 Seated Therapy Exercises: Long arc quads Seated Reps: 15 Assessment Patient tolerated increase activity and is up in recliner with needs met. Patient motivated with progress. Continue to increase activity as tolerated by patient. PT Radiology Aide Goals [facility] Goals PT Radiology Aide Goals Time Frame: Jan 01, 2023 Roll Left & Right (QC): 6 Sit to Lying (QC): 6 Lying-Sitting on Side/Bed(QC): 6 Sit to Stand (QC): 6 Chair/Ctn-qz-Zqcdc Xfer(QC): 6 Toilet Transfer (QC): 6 Does the Patient Walk: Yes Walk 10 feet (QC): 6 Walk 50ft with 2 Turns (QC): 6 Walk 150 ft (QC): 6 1 Step (curb) (QC): 4 4 Steps (QC): 4 12 Steps (QC): 4 PT Plan Treatment/Plan Treatment Plan: Continue Plan of Care Treatment Plan: Bed Mobility, Education, Functional Activity Theresa, Functional Strength, Group Therapy, Gait, Safety, Therapeutic Exercise, Transfers Treatment Duration: Jan 21, 2023 Frequency: 6 times per week Estimated Hrs Per Day: .25 hour per day Patient and/or Family Agrees t: Yes Time Time In: 900 Time Out: 924 DATE: December 07, 2022 Total Billed Treatment Time: 24 Total Billed Treatment 1 visit EX 10 min GT 14 min RUIZ MEHTA PT December 07, 2022 10:42
[2022-12-07 11:28] VITALS: BP 122/69
--- NOTE | 2022-12-07 11:29 | Occupational Ther Daily Note ---
OT Current Status-Daily Note Subjective resting in bed, patient spouse present. Patient agreeable to OT Appearance Face skin is red and glossy Mental Status/Objective Patient Orientation: Situation ADL-Treatment Therapy Code Descriptions/Definitions Functional [place] Measure: 0=Not Assessed/NA 4=Minimal Assistance 1=Total Assistance 5=Supervision or Setup 2=Maximal Assistance 6=Modified [place] 3=Moderate Assistance 7=Complete IndependenceSCALE: Activities may be completed with or without assistive devices. 9-Jtdqjrgbpg-emidhpt completes the activity by him/herself with no assistance from a helper. 5-Set-up or Clean-up Assistance-helper sets up or cleans up; patient completes activity. [place] assists only prior to or following the activity. 4-Supervision or Touching Assistance-helper provides verbal cues and/or touching/steadying and/or contact guard assistance as patient completes activity. Assistance may be provided throughout the activity or intermittently. 3-Partial/Moderate Assistance-helper does LESS THAN HALF the effort. [place] lift s, holds or supports trunk or limbs, but provides less than half the effort. 2-Substantial/Maximal Assistance-helper does MORE THAN HALF the effort. [place] lifts or holds trunk or limbs and provides more than half the effort. 9-Zyekgdjmr-zhtfhp does ALL the effort. Patient does none of the effort to complete the activity. Or, the assistance of 2 or more helpers is required for the patient to complete the activity. If activity was not attempted, code reason: 7-Patient Refused. 9-Not Applicable-not attempted and the patient did not perform the activity before the current illness, exacerbation or injury. 10-Not Attempted due to Environmental Limitations-(lack of equipment, weather restraints, etc.). 88-Not Attempted due to Medical Conditions or Safety Concerns. Eating (QC): 6 Oral Hygiene (QC): 5 Shower/Bathe Self (QC): 7 Upper Body Dressing (QC): 5 Lower Body Dressing (QC): 4 On/Off Footwear: 4 Toileting Hygiene (QC): 4 Toilet Transfer (QC): 4 Other Treatment timed 30 second intervals of sit stands, 4 reps w/ moderate exertion reported to OT, results shared w/ Dr Wilkins Education OT Patient Education: Exercise program, Modified ADL techniques, Progress to [place] Goal/Update tx plan, Purpose of tx/functional activities, Reviewed precautions, Rehab process, Safety issues, Transfer techniques Teaching Recipient: Patient, Significant Other Teaching Methods: Demonstration, Discussion Response to Teaching: Verbalize Understanding, Reinforcement Needed OT [facility] Goals Reservoir Engineering Consultant Goals Eating (QC): 6 Oral Hygiene (QC): 6 Toileting Hygiene (QC): 6 Shower/Bathe Self (QC): 6 Upper Body Dressing (QC): 6 Lower Body Dressing (QC): 6 On/Off Footwear (QC): 6 1=Demonstrate adherence to instructed precautions during ADL tasks. 2=Patient will verbalize/demonstrate understanding of assistive devices/modifications for ADL. 3=Patient will improve strength/tolerance for activity to enable patient to perform ADL's. OT Education/Plan Problem List/Assessment Assessment: Decreased Activ Tolerance, Decreased Safety Aware, Impaired Coordination, Impaired Self-Care Skills Discharge Recommendations Plan/Recommendations: Continue POC Treatment Plan/Plan of Care Treatment,Training & Education: Yes Patient would benefit from OT for education, treatment and training to promote independence in ADL's, mobility, safety and/or upper extremity function for ADL's. Plan of Care: ADL Retraining, Functional Mobility, Group Exercise/Act as Ind, UE Funct Exercise/Act Treatment Duration: December 11, 2022 Frequency: 3 times per week (3-5 times per week) Estimated Hrs Per Day: .25 hour per day Agreement: Yes Rehab Potential: Good Time Start Time: 10:34 Stop Time: 10:48 DATE: December 07, 2022 Total Time Billed (hr/min): 14 Billed Treatment Time EX 14 min LATOSHA LUNDBERG OT December 07, 2022 11:29
[2022-12-07] MEDS: LACTOBACILLUS ACIDOPHILUS (PROBIOTIC) CAPSULE PO SCH ×2 (12:11→17:28)
[2022-12-07] MEDS: NS IV 1000 ML 1,000 ML IV SCH ×2 (12:11→20:27)
--- NOTE | 2022-12-07 12:19 | Progress Note ---
Standard Progress Note Progress Notes/Assess & Plan Date Seen by a Provider: December 07, 2022 Time Seen by a Provider: 11:54 Progress/Assessment & Plan Asked to check patient's right knee R knee without erythema incision well healed AROM 0/0/90 no s/sxs of septic arthritis continue PT Focused Exam Lactate Level 12/06/22 10:15: Lactic Acid Level 1.07 GOLD WHITNEY MD December 07, 2022 12:18
--- NOTE | 2022-12-07 13:17 | Progress Note - Hospitalist ---
Subjective HPI/CC On Admission Date Seen by Provider: December 07, 2022 Patient is 67-year-old male who recently underwent a right total knee replacement and had a postoperative DVT who presented to the emergency department due to fever and malaise. His reports that since his surgery he has not been mentally back to himself. He states that he has had decreased endurance and stamina with slowed speech and some word finding difficulty. His states that he seems like he is in a stupor and will just blankly stare at her sometimes instead of responding. She reports poor oral intake. He also complains of some urinary incontinence but describes it as inability to get to the bathroom in time. He had a fever on 12/04 of 101.7 and was seen in the ER yesterday. He reports a history of tick bites and was started on doxycycline and was discharged home. He continues to not feel well so he called his PCP who recommended returned to the ER for evaluation for meningitis/encephalitis. He is on Eliquis but his held his dose last night because she was worried he was having bleeding complications so last dose was 12/05 AM. He was admitted for further workup. Subjective/Events-last exam Pt reports feeling about the same. Working with OT and quite tired from that but was able to work with PT and walk 200 feet this AM. Also reports feeling depressed. Had some loose stools yesterday afternoon but none since. Reviewed labs and leukopenia with pt and . Plan for hematology evaluation and MRI. They did ask about an ID consult though none available here. They are ok with plan for heme eval and MRI first. Does complain of depression but does not want to start anything for it yet. Focused Exam Lactate Level 12/06/22 10:15: Lactic Acid Level 1.07 Objective Exam Vital Signs Vital Signs Date Time Temp Pulse Resp B/P (MAP) Pulse Ox O2 Delivery O2 Flow Rate FiO2 12/08/22 08:00 Room Air 12/08/22 07:50 37.0 75 16 122/74 (90) 94 Capillary Refill : General Appearance: No Apparent Distress, Other (appears fatigued) Respiratory: Lungs Clear, No Respiratory Distress Cardiovascular: Regular Rate, Rhythm, No Murmur Neurologic/Psychiatric: Alert, Oriented x3, Depressed Affect Results/Procedures Lab Laboratory Tests 12/08/22 05:25 Patient resulted labs reviewed. Imaging: Reviewed Imaging Report Assessment/Plan Assessment and Plan Assess & Plan/Chief Complaint Fever- rule out meningitis AMS Leukopenia Not clinically consistent with meningitis- will DC precuations Tick panel- negative- DC doxycycline Await cultures (BC from 12/04 negative) WBC down to 1.7 today- etiology unclear Leukopenia and neutropenic so will continue broad spectrum abx Spoke with Dr Chahal who will see him in consultation Recent DVT Recent TKA Spoke with Dr Wei today and updated him on admission reports never really mentally back to baseline after surgery Resume Eliquis tonight after seen by Dr Chahal T2DM Sliding scale insulin HTN Continue home meds as appropriate DVT ppx: Eliquis tonight Diagnosis/Problems Diagnosis/Problems (1) AMS (altered mental status) Status: Acute Qualifiers: Altered mental status type: transient alteration of awareness Qualified Codes: R40.4 - Transient alteration of awareness (2) Tick bite Status: Acute Qualifiers: Encounter type: subsequent encounter Site of tick bite: thoracic wall Front or back of thoracic wall: back Thoracic wall location detail: left Qualified Codes: S20.462D - Insect bite (nonvenomous) of left back wall of thorax, subsequent encounter; W57.XXXD - Bitten or stung by nonvenomous insect and other nonvenomous arthropods, subsequent encounter (3) Fever Status: Acute Qualifiers: Fever type: due to other condition Qualified Codes: R50.81 - Fever presenting with conditions classified elsewhere (4) Acute deep vein thrombosis (DVT) of popliteal vein of right lower extremity Status: Acute (5) Diabetes type 2, controlled Status: Acute (6) HTN (hypertension) Status: Chronic (7) S/P total knee arthroplasty Status: Acute CORRIE JACKSON MD December 07, 2022 13:17
[2022-12-07] MEDS ORDERED: PREGABALIN 75 MG (LYRICA) CAP PO PRN (13:30)
[2022-12-07] MEDS ORDERED: GADOTERATE 0.5 MMOL/ML (CLARISCAN) 20 ML VIAL IV ONE (13:45)
[2022-12-07 15:30] VITALS: BP 127/79
--- NOTE | 2022-12-07 19:31 | CONSULTATION REPORT ---
DATE OF SERVICE: 12/07/2022 The patient is admitted to room 402. PHYSICIAN REQUESTING CONSULTATION: Neelima Judge. PRIMARY PHYSICIAN: Neeraj Bustillos MD IMPRESSION: 1. A 67-year-old male admitted to the hospital with febrile illness and mental status changes. 2. Worsening leukopenia, neutropenia and thrombocytopenia of undetermined etiology. 3. History of right knee replacement on 11/03/2022 with an ER visit for febrile illness on 11/06/2022, at which time, right knee joint was aspirated with negative Gram stain. 4. History of tick bites approximately 10 days ago and seen in the emergency room with febrile illness on 11/04/2022 and treated with doxycycline. Tick-borne panel drawn on that day was resulted as negative and doxycycline discontinued today. 5. Currently on broad-spectrum antibiotics including ampicillin 2 grams IV every 4 hours, ceftriaxone 2 grams twice daily, vancomycin twice daily and doxycycline, which has been discontinued this afternoon. RECOMMENDATIONS: 1. The leukopenia, neutropenia and thrombocytopenia is most likely related to medications or infection causing bone marrow suppression. 2. Monitor lab work serially in a.m. I will request ESR and C-reactive protein as a baseline. 3. Restart Eliquis because of recent history of right lower extremity DVT. 4. Continue with PT/OT as tolerated. 5. If right knee pain/swelling or erythema worsens, he may need further evaluation to rule out an infection. 6. I will follow the patient with you. BRIEF HISTORY: The patient is a 67-year-old male who underwent right total knee replacement on 11/03/2022. Prior to this, he had mild symptoms of dizziness and one episode of passing out and was hypotensive. His antihypertensive medications were decreased. Postoperatively, he was discharged home on 11/05/2022, but came back to the emergency room on 11/06/2022 with fever of 100.2. Apparently, his right knee was sore and erythematous and had an aspirate done in the emergency room with Gram stain reporting no bacteria. The next day, he had a sonogram of the right lower extremity, which showed a nonocclusive thrombus of the popliteal vein and was started on Eliquis. He continued with physical therapy and was feeling better until a week to 10 days ago when he started developing extreme fatigue and came to the emergency room on 12/04/2021. He also gave history of 2 tick bites approximately a week prior to this. He was treated with Rocephin and tick-borne panel was obtained. He returned to the emergency room on 12/06/2022 with another febrile episode, this time more than 101 degrees Fahrenheit and was admitted to the hospital. His white blood cell count and neutrophil count was low at the time of admission and that has worsened and hence the Hematology consultation for further evaluation. He complains of extreme fatigue and right knee discomfort. Prior to admission, he was having mental cloudiness and unable to answer certain questions. He had a CT scan of the head without contrast, which was unremarkable during the emergency room visit. Overall, he may be slightly better today, but the extreme fatigue continues. He denied any fevers or shaking chills. No chest pain, palpitations, orthopnea or PND. Activity level is limited over the last week because of the fatigue. Denied any cough or pleuritic chest pain. No urinary symptoms. He has low back pain, which has been a chronic problem. Rest of the review of system was unremarkable. PAST MEDICAL HISTORY: Significant for diabetes mellitus type 2 and hypertension. PAST SURGICAL HISTORY: Prior surgeries include corneal surgery, previous neck surgery, bilateral arthroscopic knee surgery and recent right knee total replacement. He has history of sleep apnea, but has not been using CPAP. He has osteoarthritis and chronic low back pain with neuropathy in the lower extremities. FAMILY HISTORY: Unremarkable and noncontributory. SOCIAL HISTORY: The patient is and lives in [place], [place]. 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 No history of tobacco or recreational drug use. Social alcohol use. PHYSICAL EXAMINATION: GENERAL: Today showed an elderly male, well developed and nourished, awake and answering questions appropriately. VITAL SIGNS: His temperature was 36.5, pulse rate of 77, respirations 18, blood pressure 127/79 with oxygen saturation of 97% on room air. HEENT: Normocephalic. Extraocular muscles intact. Conjunctivae pink, slight flushed appearance of the face, oral mucosa moist without lesions. NECK: Supple with no JVD. No cervical, supraclavicular or axillary lymphadenopathy palpable. CHEST: Symmetrical. LUNGS: Fairly clear to auscultation without wheezes or rales. CARDIOVASCULAR: Regular in rate and rhythm. No murmurs or gallops are heard. ABDOMEN: Soft, nontender with no hepatosplenomegaly or other masses palpable. EXTREMITIES: Showed no edema. Postoperative changes of the right knee with no erythema, but slight warmth on touch around the right knee joint. No splinter hemorrhages noted. NEUROLOGIC: Showed no focal motor deficits. Range of movement and strength of right lower extremity is somewhat limited because of the knee surgery and discomfort. CBC done today showed WBC 1.7, hemoglobin 14.2, platelet count 104,000 with neutrophil count 0.8, lymphocyte count 0.7 and monocyte count 0.2 on automated differential count. CBC done yesterday at the time of admission showed WBC 2.7, hemoglobin 15.4, platelet count 138,000 with neutrophil count 1.6, lymphocyte count 0.7 and monocyte count 0.4. Previous CBCs dating back to 10/28/2022 showed WBC 9.1, hemoglobin 17.8 with hematocrit 51, platelet count 233,000 with normal automated differential count. Sed rate was 1. On 11/06/2022, CBC showed white count of 16.2, hemoglobin 15.6 and platelet count of 230,000. On 12/04/2022, the CBC showed WBC 3.0, hemoglobin 14.7 and platelet count of 159,000 with neutrophil count 2.1, lymphocyte count 0.5 and monocyte count 0.5. Chemistry panel done today showed relatively normal electrolytes except potassium level of 3.1 and CO2 of 20, BUN was 10 and creatinine 0.69 with GFR 101 mL per minute. AST was minimally elevated at 76 and ALT 74 with the rest of the liver function studies within normal limits. C-reactive protein done yesterday on 12/06/2022 was 0.04. On 11/06/2022, the C-reactive protein was elevated at 19.85. Previous urine and blood cultures done on 12/06/2022, 12/04/2022 and 11/06/2022 had shown no growth. Gram stain and culture from the synovial fluid aspirate done on 11/07/2022 from the right knee was reviewed. Specimen was grossly bloody, rare WBCs observed with no bacteria seen. Cultures showed no growth. Venous Doppler study done on 11/07/2022 showed nonocclusive thrombus in the right popliteal vein. CT angiogram of the chest done on 12/04/2022 showed no acute pulmonary embolus, mildly prominent lymph nodes in the right axilla and hepatic steatosis with hepatosplenomegaly. CT scan of the head without contrast done on 12/06/2022 showed no evidence of an acute intracranial process. This was compared to previous CT scan of the head and C-spine dated 02/04/2013, the brain parenchymal volume loss has not changed compared to the previous CT scan. Chest x-ray done on 12/06/2022 showed no acute abnormalities of the chest. Thank you for allowing me to participate in this patient's care. I will follow the patient with you and make appropriate recommendations. Job ID: [id number] DocumentID: [id number] Dictated Date: 12/07/2022 18:25:11 Lead Care Manager Date: 12/07/2022 19:31:00 Dictated By: ADALBERTO PICKETT MD
[2022-12-07 19:44] VITALS: BP 136/76
[2022-12-07] MEDS: APIXABAN 5 MG (ELIQUIS) TABLET PO SCH (20:27)
[2022-12-07 23:55] VITALS: BP 124/72
[2022-12-08] MEDS ORDERED: TROUGH ORDER-PHARMACY XX NR
[2022-12-08] MEDS: VANCOMYCIN 1250 MG/NS 250 ML PREMIX IV SCH (01:04)
[2022-12-08] MEDS: AMPICILLIN 2,000 MG/NS 100 ML IVPB IV SCH ×4 (03:38→09:05)
[2022-12-08 03:43] VITALS: BP 103/66
[2022-12-08] MEDS: inSUlin ASPART (NovoLOG) 1 UNIT/0.01 ML (CHARGE PER UNIT) SC SCH ×4 (05:43→20:27)
[2022-12-08 05:46] LABS: EOSINOPHILS % (AUTO) 1 % (0-10); MONOCYTES # (AUTO) 0.2 10^3/uL (0.0-1.0)
[2022-12-08 05:48] LABS: BASOPHILS % (AUTO) 1 % (0-10); HEMATOCRIT 40 % (40-54); HEMOGLOBIN 13.4 g/dL (13.3-17.7); LYMPHOCYTES % (AUTO) 53 % (12-44); MEAN CORPUSCULAR HEMOGLOBIN 30 pg (25-34); MEAN CORPUSCULAR HGB CONC 34 g/dL (32-36); MEAN CORPUSCULAR VOLUME 88 fL (80-99); MEAN PLATELET VOLUME 9.6 fL (9.0-12.2); MONOCYTES % (AUTO) 10 % (0-12); NEUTROPHILS # (AUTO) 0.7 10^3/uL (1.8-7.8); NEUTROPHILS % (AUTO) 36 % (42-75); PLATELET COUNT 100 10^3/uL (130-400); WHITE BLOOD COUNT 1.9 10^3/uL (4.3-11.0)
[2022-12-08 06:01] LABS: ALBUMIN 3.2 GM/DL (3.2-4.5); BILIRUBIN,TOTAL 0.5 MG/DL (0.1-1.0); CREATININE SERUM 0.7 MG/DL (0.60-1.30); POTASSIUM 3.2 MMOL/L (3.6-5.0); TOTAL PROTEIN 5.6 GM/DL (6.4-8.2)
[2022-12-08 06:08] LABS: PROTHROMBIN TIME PATIENT 13.4 SEC (12.2-14.7)
[2022-12-08 06:11] LABS: FIBRIN DEGRADATION PRODUCTS 1.54 UG/ML (0.00-0.49)
[2022-12-08 06:36] LABS: BAND NEUTROPHILS 2 %; LYMPHOCYTES % (MANUAL) 41 %; MONOCYTES % (MANUAL) 10 %; NEUTROPHILS % (MANUAL) 42 %; RBC MORPH NORMAL; REACTIVE LYMPHOCYTES 5 %
[2022-12-08 07:01] LABS: ERYTHROCYTE SEDIMENTATION RATE 8 MM/HR (0-30)
[2022-12-08 07:50] VITALS: BP 122/74
[2022-12-08] MEDS: NS IV 1000 ML 1,000 ML IV SCH ×2 (07:56→17:48)
[2022-12-08] MEDS ORDERED: LORazepam 0.5 MG (ATIVAN) TABLET PO PRN (08:45)
[2022-12-08] MEDS: APIXABAN 5 MG (ELIQUIS) TABLET PO SCH ×2 (08:56→20:26)
[2022-12-08] MEDS: LACTOBACILLUS ACIDOPHILUS (PROBIOTIC) CAPSULE PO SCH ×3 (09:05→17:04)
[2022-12-08] MEDS ORDERED: KCL 20 MEQ TAB (K-DUR) PO NR ×2 (09:30→11:00)
--- NOTE | 2022-12-08 09:48 | Progress Note - Hospitalist ---
Subjective HPI/CC On Admission Date Seen by Provider: December 08, 2022 Patient is 67-year-old male who recently underwent a right total knee replacement and had a postoperative DVT who presented to the emergency department due to fever and malaise. His reports that since his surgery he has not been mentally back to himself. He states that he has had decreased endurance and stamina with slowed speech and some word finding difficulty. His states that he seems like he is in a stupor and will just blankly stare at her sometimes instead of responding. She reports poor oral intake. He also complains of some urinary incontinence but describes it as inability to get to the bathroom in time. He had a fever on 12/04 of 101.7 and was seen in the ER yesterday. He reports a history of tick bites and was started on doxycycline and was discharged home. He continues to not feel well so he called his PCP who recommended returned to the ER for evaluation for meningitis/encephalitis. He is on Eliquis but his held his dose last night because she was worried he was having bleeding complications so last dose was 12/05 AM. He was admitted for further workup. Subjective/Events-last exam Pt reports feeling a little better today. Was able to get up to the bathroom and chair with the help of his today. Unable to get MRI yesterday due to claustrophobia. Focused Exam Lactate Level 12/06/22 10:15: Lactic Acid Level 1.07 Objective Exam Vital Signs Vital Signs Date Time Temp Pulse Resp B/P (MAP) Pulse Ox O2 Delivery O2 Flow Rate FiO2 12/08/22 08:00 Room Air 12/08/22 07:50 37.0 75 16 122/74 (90) 94 Capillary Refill : General Appearance: No Apparent Distress, WD/WN Respiratory: Lungs Clear, No Respiratory Distress Cardiovascular: Regular Rate, Rhythm, No Murmur Gastrointestinal: Normal Bowel Sounds, Soft Extremity: Other (surgical wound healing well, no erythema or drainage, slightly more warm than other knee) Neurologic/Psychiatric: Alert, Oriented x3 Results/Procedures Lab Laboratory Tests 12/08/22 05:25 Patient resulted labs reviewed. Imaging: Reviewed Imaging Report Assessment/Plan Assessment and Plan Assess & Plan/Chief Complaint Fever- resolved Leukopenia AMS- improving Depressed affect Tick panel- negative- DC doxycycline Await cultures (BC from 12/04 negative) WBC 1.9 today- etiology unclear Dr Chahal saw patient, added labs, appreciate recs Will get MRI brain today Declined antidepressants Recent DVT Recent TKA Spoke with Dr Wei today again and he will see reports never really mentally back to baseline after surgery Continue Eliquis PT/OT IRF eval T2DM Sliding scale insulin HTN Continue home meds as appropriate DVT ppx: Eliquis Diagnosis/Problems Diagnosis/Problems (1) AMS (altered mental status) Status: Acute Qualifiers: Altered mental status type: transient alteration of awareness Qualified [place] ag[place]: R40.4 - Transient alteration of awareness (2) Tick bite Status: Acute Qualifiers: Encounter type: subsequent encounter Site of tick bite: thoracic wall Front or back of thoracic wall: back Thoracic wall location detail: left Qualified Codes: S20.462D - Insect bite (nonvenomous) of left back wall of thorax, subsequent encounter; W57.XXXD - Bitten or stung by nonvenomous insect and other nonvenomous arthropods, subsequent encounter (3) Fever Status: Acute Qualifiers: Fever type: due to other condition Qualified Codes: R50.81 - Fever presenting with conditions classified elsewhere (4) Acute deep vein thrombosis (DVT) of popliteal vein of right lower extremity Status: Acute (5) Diabetes type 2, controlled Status: Acute (6) HTN (hypertension) Status: Chronic (7) S/P total knee arthroplasty Status: Acute CORRIE JACKSON MD December 08, 2022 09:48
--- NOTE | 2022-12-08 10:30 | Progress Note ---
Standard Progress Note Progress Notes/Assess & Plan Date Seen by a Provider: December 08, 2022 Time Seen by a Provider: 10:28 Progress/Assessment & Plan Asked to check patient's right knee R knee without erythema incision well healed AROM 0/0/90 no s/sxs of septic arthritis continue PT Final Diagnosis had discussion with patient and about previous cultures c/o of some lateral leg pain radiating to ankle R knee without effusion flexion to 90 mildly positive SLR no s/sxs septic arthritis I do feel he is having some radicular sxs answered all questions agree with IRU rec Focused Exam Lactate Level 12/06/22 10:15: Lactic Acid Level 1.07 GOLD WHITNEY MD December 08, 2022 10:30
[2022-12-08] MEDS: cefTRIAXone 2,000 MG/NS 50 ML IVPB IV SCH ×4 (10:40→20:26)
[2022-12-08] MEDS ORDERED: GADOTERATE 0.5 MMOL/ML (CLARISCAN) 20 ML VIAL IV ONE (11:30)
--- NOTE | 2022-12-08 11:40 | Physical Therapy Daily Note ---
PT Daily Note-Current Subjective Patient lying supine in bed upon PT arrival, agreeable to treatment. Pain Section J - Health Conditions 1. Rarely or not at all 2. Occasionally 3. Frequently 4. Almost constantly 8. Unable to answer Pain Effect on Sleep: 2 Pain Interference with Therapy: 2 Pain Interference w/Day-to-Day: 2 Mental Status Patient Orientation: Person, Place, Time, Situation Transfers SCALE: Activities may be completed with or without assistive devices. 7-Wchgqghpji-fzjgroa completes the activity by him/herself with no assistance from a helper. 5-Set-up or Clean-up Assistance-helper sets up or cleans up; patient completes activity. [place] assists only prior to or following the activity. 4-Supervision or Touching Assistance-helper provides verbal cues and/or touching/steadying and/or contact guard assistance as patient completes activity. Assistance may be provided throughout the activity or intermittently. 3-Partial/Moderate Assistance-helper does LESS THAN HALF the effort. [place] lifts, holds or supports trunk or limbs, but provides less than half the effort. 2-Substantial/Maximal Assistance-helper does MORE THAN HALF the effort. [place] lifts or holds trunk or limbs and provides more than half the effort. 9-Kugkadrdu-glrnpb does ALL the effort. Patient does none of the effort to complete the activity. Or, the assistance of 2 or more helpers is required for the patient to complete the activity. If activity was not attempted, code reason: 7-Patient Refused. 9-Not Applicable-not attempted and the patient did not perform the activity before the current illness, exacerbation or injury. 10-Not Attempted due to Environmental Limitations-(lack of equipment, weather restraints, etc.). 88-Not Attempted due to Medical Conditions or Safety Concerns. Roll Left & Right (QC): 6 Sit to Lying (QC): 6 Lying to Sitting/Side of Bed(Q: 6 Sit to Stand (QC): 4 Chair/Kmq-pw-Gfktr Xfer(QC): 4 Weight Bearing Right Lower Extremity: Right Weight Bearing/Tolerated Left Lower Extremity: Left Full Weight Bearing Gait Training Does the Patient Walk?: Yes Distance: 350' Walk 10 feet (QC): 6 Walk 50 ft with 2 Turns(QC): 4 Walk 150 ft (QC): 4 Gait Persons Needed: 1 Gait Assistive Device: FWW Exercises Supine Ex: Ankle pumps, Quad Set, Glut sets, Short Arc Quads Supine Reps: 20 Assessment Current Status: Good Progress Patient tolerated treatment well. Patient performs LE ther ex as listed above. Demonstrates improved mobility and transfers with SBA to [place]. Patient ambulates 350 feet with FWW, with SBA. Patient in bed post treatment with all needs met, nursing notified, in the room and call light in hand. PT Nursing Home Goals Nursing Home Goals PT Lead Front Desk Agent Goals Time Frame: Jan 01, 2023 Roll Left & Right (QC): 6 Sit to Lying (QC): 6 Lying-Sitting on Side/Bed(QC): 6 Sit to Stand (QC): 6 Chair/Inv-on-Gwgeq Xfer(QC): 6 Toilet Transfer (QC): 6 Does the Patient Walk: Yes Walk 10 feet (QC): 6 Walk 50ft with 2 Turns (QC): 6 Walk 150 ft (QC): 6 1 Step (curb) (QC): 4 4 Steps (QC): 4 12 Steps (QC): 4 PT Plan Treatment/Plan Treatment Plan: Continue Plan of Care Treatment Plan: Bed Mobility, Education, Functional Activity Theresa, Functional Strength, Group Therapy, Gait, Safety, Therapeutic Exercise, Transfers Treatment Duration: Jan 21, 2023 Frequency: 6 times per week Estimated Hrs Per Day: .25 hour per day Patient and/or Family Agrees t: Yes Safety Risks/Education Patient Education: Gait Training, Transfer Techniques Teaching Recipient: Patient Teaching Methods: Demonstration, Discussion Response to Teaching: Verbalize Understanding, Return Demonstration Time Time In: 930 Time Out: 955 DATE: December 08, 2022 Total Billed Treatment Time: 25 Total Billed Treatment Visit, GT, EX ASHER JOHNSON PT December 08, 2022 11:40
[2022-12-08] MEDS: DOXYCYCLINE 100 MG (VIBRAMYCIN) TABLET PO SCH ×2 (11:45→17:04)
[2022-12-08 11:49] VITALS: BP 131/82
--- NOTE | 2022-12-08 12:08 | Diagnostic Imaging Report ---
PROCEDURE: MR imaging of the brain without contrast. TECHNIQUE: Multiplanar, multisequence MR imaging of the brain was performed without contrast. INDICATION: Fever, Weakness No acute infarct. No acute or chronic hemorrhage. The ventricles are normal in size and configuration without hydrocephalus. Mild scattered FLAIR hyperintensities in the subcortical and periventricular deep white matter, a nonspecific finding, most commonly seen with chronic small vessel ischemic disease. The scalp and calvarium are normal. The pituitary and sella are normal. No Chiari malformation. The visualized upper cervical spine is normal. The visualized orbits and globes are normal. The visualized paranasal sinuses are clear. The mastoid air cells are clear. Normal flow voids within the vertebral, basilar, and internal carotid arteries indicating patency. IMPRESSION: No acute infarct, hemorrhage, mass, or hydrocephalus. Mild chronic small vessel ischemic disease. Mild global volume loss. Dictated by: Dictated on workstation # [id number]
[2022-12-08] MEDS: VANCOMYCIN 1500MG/300ML PREMIX IV SCH ×2 (14:28→23:43)
[2022-12-08 15:27] VITALS: BP 122/70
--- NOTE | 2022-12-08 15:38 | Occupational Ther Daily Note ---
OT Current Status-Daily Note Subjective AGREEABLE TO OT ADL-Treatment Therapy Code Descriptions/Definitions Functional [place] Measure: 0=Not Assessed/NA 4=Minimal Assistance 1=Total Assistance 5=Supervision or Setup 2=Maximal Assistance 6=Modified [place] 3=Moderate Assistance 7=Complete IndependenceSCALE: Activities may be completed with or without assistive devices. 3-Rpkgvbewvj-zgxoeqd completes the activity by him/herself with no assistance from a helper. 5-Set-up or Clean-up Assistance-helper sets up or cleans up; patient completes activity. [place] assists only prior to or following the activity. 4-Supervision or Touching Assistance-helper provides verbal cues and/or touching/steadying and/or contact guard assistance as patient completes activity. Assistance may be provided throughout the activity or intermittently. 3-Partial/Moderate Assistance-helper does LESS THAN HALF the effort. [place] lifts, holds or supports trunk or limbs, but provides less than half the effort. 2-Substantial/Maximal Assistance-helper does MORE THAN HALF the effort. [place] lifts or holds trunk or limbs and provides more than half the effort. 1-Jautmzttj-yskhoa does ALL the effort. Patient does none of the effort to complete the activity. Or, the assistance of 2 or more helpers is required for the patient to complete the activity. If activity was not attempted, code reason: 7-Patient Refused. 9-Not Applicable-not attempted and the patient did not perform the activity before the current illness, exacerbation or injury. 10-Not Attempted due to Environmental Limitations-(lack of equipment, weather restraints, etc.). 88-Not Attempted due to Medical Conditions or Safety Concerns. Eating (QC): 6 Oral Hygiene (QC): 6 Shower/Bathe Self (QC): 7 Upper Body Dressing (QC): 5 Lower Body Dressing (QC): 5 On/Off Footwear: 5 Toileting Hygiene (QC): 5 Toilet Transfer (QC): 5 Other Treatment EDUCATION FOR SAFETY SCENARIOS AND SAFE ROUTE PLANNING FOR LOWER ENERGY TOLERANCE AND DIZZINESS Education OT Patient Education: Correct positioning, Safety issues Teaching Recipient: Patient Response to Teaching: Return Demonstration OT Android Programmer Goals Custodial Goals Eating (QC): 6 Oral Hygiene (QC): 6 Toileting Hygiene (QC): 6 Shower/Bathe Self (QC): 6 Upper Body Dressing (QC): 6 Lower Body Dressing (QC): 6 On/Off Footwear (QC): 6 1=Demonstrate adherence to instructed precautions during ADL tasks. 2=Patient will verbalize/demonstrate understanding of assistive devices/modifications for ADL. 3=Patient will improve strength/tolerance for activity to enable patient to perform ADL's. OT Education/Plan Problem List/Assessment Assessment: Decreased Activ Tolerance, Impaired Self-Care Skills Discharge Recommendations Plan/Recommendations: Continue POC Treatment Plan/Plan of Care Patient would benefit from OT for education, treatment and training to promote independence in ADL's, mobility, safety and/or upper extremity function for ADL's. Plan of Care: ADL Retraining, Functional Mobility, Group Exercise/Act as Ind, UE Funct Exercise/Act Treatment Duration: December 11, 2022 Frequency: 3 times per week (3-5 times per week) Estimated Hrs Per Day: .25 hour per day Agreement: Yes Rehab Potential: Good Time Start Time: 13:00 Stop Time: 13:15 DATE: December 08, 2022 Total Time Billed (hr/min): 15 Billed Treatment Time FA 15 MIN LATOSHA LUNDBERG OT December 08, 2022 15:37
[2022-12-08] MEDS: ACETAMINOPHEN 500 MG TAB (TYLENOL) PO PRN ×2 (16:19→23:42)
[2022-12-08 19:32] VITALS: BP 132/79
[2022-12-08 23:38] VITALS: BP 124/71
[2022-12-09 03:24] VITALS: BP 139/75
[2022-12-09] MEDS: NS IV 1000 ML 1,000 ML IV SCH ×2 (03:25→17:34)
[2022-12-09] MEDS: inSUlin ASPART (NovoLOG) 1 UNIT/0.01 ML (CHARGE PER UNIT) SC SCH ×4 (05:28→20:07)
[2022-12-09 05:36] LABS: MEAN PLATELET VOLUME 9.2 fL (9.0-12.2); WHITE BLOOD COUNT 2.2 10^3/uL (4.3-11.0)
[2022-12-09 05:56] LABS: CALCIUM 8.5 MG/DL (8.5-10.1); CREATININE SERUM 0.63 MG/DL (0.60-1.30); POTASSIUM 3.3 MMOL/L (3.6-5.0)
[2022-12-09] MEDS: DOXYCYCLINE 100 MG (VIBRAMYCIN) TABLET PO SCH ×2 (06:00→17:40)
[2022-12-09 07:41] VITALS: BP 113/71
[2022-12-09] MEDS: LACTOBACILLUS ACIDOPHILUS (PROBIOTIC) CAPSULE PO SCH ×3 (08:18→17:40)
[2022-12-09] MEDS: cefTRIAXone 2,000 MG/NS 50 ML IVPB IV SCH ×2 (08:18)
[2022-12-09] MEDS: APIXABAN 5 MG (ELIQUIS) TABLET PO SCH ×2 (08:18→21:00)
--- NOTE | 2022-12-09 10:29 | Occupational Ther Daily Note ---
OT Current Status-Daily Note Subjective Up in recliner, agreeable to OT Mental Status/Objective Attachments: IV ADL-Treatment Therapy Code Descriptions/Definitions Functional [place] Measure: 0=Not Assessed/NA 4=Minimal Assistance 1=Total Assistance 5=Supervision or Setup 2=Maximal Assistance 6=Modified [place] 3=Moderate Assistance 7=Complete IndependenceSCALE: Activities may be completed with or without assistive devices. 0-Ytfzjhfezo-htiojjz completes the activity by him/herself with no assistance from a helper. 5-Set-up or Clean-up Assistance-helper sets up or cleans up; patient completes activity. [place] assists only prior to or following the activity. 4-Supervision or Touching Assistance-helper provides verbal cues and/or touching/steadying and/or contact guard assistance as patient completes activity. Assistance may be provided throughout the activity or intermittently. 3-Partial/Moderate Assistance-helper does LESS THAN HALF the effort. [place] lifts, holds or supports trunk or limbs, but provides less than half the effort. 2-Substantial/Maximal Assistance-helper does MORE THAN HALF the effort. [place] lifts or holds trunk or limbs and provides more than half the effort. 4-Jlvedpzxw-onsmbx does ALL the effort. Patient does none of the effort to complete the activity. Or, the assistance of 2 or more helpers is required for the patient to complete the activity. If activity was not attempted, code reason: 7-Patient Refused. 9-Not Applicable-not attempted and the patient did not perform the activity before the current illness, exacerbation or injury. 10-Not Attempted due to Environmental Limitations-(lack of equipment, weather restraints, etc.). 88-Not Attempted due to Medical Conditions or Safety Concerns. Eating (QC): 6 Oral Hygiene (QC): 6 Shower/Bathe Self (QC): 7 Upper Body Dressing (QC): 5 Lower Body Dressing (QC): 5 On/Off Footwear: 5 Toileting Hygiene (QC): 5 Toilet Transfer (QC): 5 Patient uses urinal independently, Supervision and SBA for transporting IV pole to bathroom, toileting tasks completed w/ supervision Education OT Patient Education: Correct positioning, Exercise program, Modified ADL techniques, Progress toward Goal/Update tx plan, Purpose of tx/functional activities, Reviewed precautions, Rehab process, Safety issues, Transfer techniques Teaching Recipient: Patient, Significant Other Teaching Methods: Demonstration, Discussion Response to Teaching: Return Demonstration OT Lay Up Operator Goals Lay Up Operator Goals Eating (QC): 6 Oral Hygiene (QC): 6 Toileting Hygiene (QC): 6 Shower/Bathe Self (QC): 6 Upper Body Dressing (QC): 6 Lower Body Dressing (QC): 6 On/Off Footwear (QC): 6 1=Demonstrate adherence to instructed precautions during ADL tasks. 2=Patient will verbalize/demonstrate understanding of assistive devices/modifications for ADL. 3=Patient will improve strength/tolerance for activity to enable patient to perform ADL's. OT Education/Plan Discharge Recommendations Plan/Recommendations: Continue POC Treatment Plan/Plan of Care Treatment,Training & Education: Yes Patient would benefit from OT for education, treatment and training to promote independence in ADL's, mobility, safety and/or upper extremity function for ADL's. Plan of Care: ADL Retraining, Functional Mobility, Group Exercise/Act as Ind, UE Funct Exercise/Act Treatment Duration: December 11, 2022 Frequency: 3 times per week (3-5 times per week) Estimated Hrs Per Day: .25 hour per day Agreement: Yes Rehab Potential: Good All needs met. Spouse in room Time Start Time: 09:06 Stop Time: 09:29 DATE: December 09, 2022 Total Time Billed (hr/min): 23 Billed Treatment Time ADL 23 min LATOSHA LUNDBERG OT December 09, 2022 10:29
--- NOTE | 2022-12-09 10:35 | Physical Therapy Daily Note ---
PT Daily Note-Current Subjective Patient agrees to PT. Pain Section J - Health Conditions 1. Rarely or not at all 2. Occasionally 3. Frequently 4. Almost constantly 8. Unable to answer Pain Effect on Sleep: 2 Pain Interference with Therapy: 2 Pain Interference w/Day-to-Day: 2 Mental Status Patient Orientation: Normal For Age Attachments: IV Transfers SCALE: Activities may be completed with or without assistive devices. 1-Mistvqifgl-sjzwbqh completes the activity by him/herself with no assistance from a helper. 5-Set-up or Clean-up Assistance-helper sets up or cleans up; patient completes activity. [place] assists only prior to or following the activity. 4-Supervision or Touching Assistance-helper provides verbal cues and/or touching/steadying and/or contact guard assistance as patient completes ac tivity. Assistance may be provided throughout the activity or intermittently. 3-Partial/Moderate Assistance-helper does LESS THAN HALF the effort. [place] lifts, holds or supports trunk or limbs, but provides less than half the effort. 2-Substantial/Maximal Assistance-helper does MORE THAN HALF the effort. [place] lifts or holds trunk or limbs and provides more than half the effort. 8-Qvcrzruzy-erqotk does ALL the effort. Patient does none of the effort to complete the activity. Or, the assistance of 2 or more helpers is required for the patient to complete the activity. If activity was not attempted, code reason: 7-Patient Refused. 9-Not Applicable-not attempted and the patient did not perform the activity before the current illness, exacerbation or injury. 10-Not Attempted due to Environmental Limitations-(lack of equipment, weather restraints, etc.). 88-Not Attempted due to Medical Conditions or Safety Concerns. Sit to Stand (QC): 6 Weight Bearing Right Lower Extremity: Right Weight Bearing/Tolerated Left Lower Extremity: Left Full Weight Bearing Gait Training Distance: 500' Walk 10 feet (QC): 5 Walk 50 ft with 2 Turns(QC): 5 Walk 150 ft (QC): 5 Gait Assistive Device: FWW steady, functional gait sequence Stair Training Stair Training: Handrails/: 2 handrails #of Steps: 4 1 Step (curb) (QC): 4 4 Steps (QC): 4 Stairs: Pattern: Step to Exercises Supine Ex: Ankle pumps, Quad Set, Heel Slides, Straight leg raise Supine Reps: 12 (review) Seated Therapy Exercises: Long arc quads Seated Reps: 15 Assessment Patient much improved with gross motor skills on this date. Patient motivated with progress. Patient is modified independent to independent with all mobility. PT Sourcing Assistant Goals Sourcing Assistant Goals PT Usp Goals Time Frame: Jan 01, 2023 Roll Left & Right (QC): 6 Sit to Lying (QC): 6 Lying-Sitting on Side/Bed(QC): 6 Sit to Stand (QC): 6 Chair/Wva-vb-Xawqc Xfer(QC): 6 Toilet Transfer (QC): 6 Does the Patient Walk: Yes Walk 10 feet (QC): 6 Walk 50ft with 2 Turns (QC): 6 Walk 150 ft (QC): 6 1 Step (curb) (QC): 4 4 Steps (QC): 4 12 Steps (QC): 4 PT Plan Treatment/Plan Treatment Plan: Continue Plan of Care Treatment Plan: Bed Mobility, Education, Functional Activity Theresa, Functional Strength, Group Therapy, Gait, Safety, Therapeutic Exercise, Transfers Treatment Duration: Jan 21, 2023 Frequency: 6 times per week Estimated Hrs Per Day: .25 hour per day Patient and/or Family Agrees t: Yes Time Time In: 906 Time Out: 929 DATE: December 09, 2022 Total Billed Treatment Time: 23 Total Billed Treatment 1 visit FA x 2 23 min RUIZ MEHTA PT December 09, 2022 10:35
[2022-12-09 12:17] VITALS: BP 126/79
--- NOTE | 2022-12-09 13:10 | Progress Note - Hospitalist ---
Subjective HPI/CC On Admission Date Seen by Provider: December 09, 2022 Patient is 67-year-old male who recently underwent a right total knee replacement and had a postoperative DVT who presented to the emergency department due to fever and malaise. His reports that since his surgery he has not been mentally back to himself. He states that he has had decreased endurance and stamina with slowed speech and some word finding difficulty. His states that he seems like he is in a stupor and will just blankly stare at her sometimes instead of responding. She reports poor oral intake. He also complains of some urinary incontinence but describes it as inability to get to the bathroom in time. He had a fever on 12/04 of 101.7 and was seen in the ER yesterday. He reports a history of tick bites and was started on doxycycline and was discharged home. He continues to not feel well so he called his PCP who recommended returned to the ER for evaluation for meningitis/encephalitis. He is on Eliquis but his held his dose last night because she was worried he was having bleeding complications so last dose was 12/05 AM. He was admitted for further workup. Subjective/Events-last exam Pt reports feeling better today. No new complaints. Up working with PT and doing well. Labs sent to state per [facility] recommendations. Objective Exam Vital Signs Vital Signs Date Time Temp Pulse Resp B/P (MAP) Pulse Ox O2 Delivery O2 Flow Rate FiO2 12/09/22 12:17 36.7 77 18 126/79 (95) 94 Room Air Capillary Refill : General Appearance: No Apparent Distress, WD/WN Respiratory: Lungs Clear, No Respiratory Distress Cardiovascular: Regular Rate, Rhythm, No Murmur Neurologic/Psychiatric: Alert, Oriented x3 Results/Procedures Lab Laboratory Tests 12/09/22 05:02 Patient resulted labs reviewed. Imaging: Reviewed Imaging Report Assessment/Plan Assessment and Plan Assess & Plan/Chief Complaint Fever- resolved Leukopenia- improving AMS- improving Depressed affect Tick panel negative but maybe a false negative- will continue bonifacio Spoke with infection control and [facility] and will check for [place] virus along with [place]- will repeat the tick panel as an outpatient Await cultures (BC and urine negative) WBC 2.2 today- etiology unclear Dr Chahal consulted, appreciate recs Negative MRI brain Declined antidepressants Recent DVT Recent TKA Spoke with Dr Wei today again and he will see Continue Eliquis PT/OT IRF eval- did too well to qualify T2DM Sliding scale insulin HTN Continue home meds as appropriate DVT ppx: Eliquis Diagnosis/Problems Diagnosis/Problems (1) AMS (altered mental status) Status: Acute Qualifiers: Altered mental status type: transient alteration of awareness Qualified Codes: R40.4 - Transient alteration of awareness (2) Tick bite Status: Acute Qualifiers: Encounter type: subsequent encounter Site of tick bite: thoracic wall Front or back of thoracic wall: back Thoracic wall location detail: left Qualified Codes: S20.462D - Insect bite (nonvenomous) of left back wall of thorax, subsequent encounter; W57.XXXD - Bitten or stung by nonvenomous insect and other nonvenomous arthropods, subsequent encounter (3) Fever Status: Acute Qualifiers: Fever type: due to other condition Qualified Codes: R50.81 - Fever presenting with conditions classified elsewhere (4) Acute deep vein thrombosis (DVT) of popliteal vein of right lower extremity Status: Acute (5) Diabetes type 2, controlled Status: Acute (6) HTN (hypertension) Status: Chronic (7) S/P total knee arthroplasty Status: Acute CORRIE JACKSON MD December 09, 2022 13:10
--- NOTE | 2022-12-09 14:59 | D/C HH Face to Face Order ---
D/C Face to Face Orders Instructions for Patient Via [facility], Patient Instructions/FollowUp: Please follow up with Dr Bustillos to follow up this hospital stay. Please continue to follow with Dr Wei for your post operative care. Physician to follow Patient: Dr Bustillos Discharge Diet for Home: No Restrictions Patient Data-Allergies,Ht & Wt Patient Allergies: Coded Allergies: No Known Drug Allergies (Unverified , 11/03/22) Height (Feet): 6 Height (Inches): 1.00 Weight (Pounds): 270 Weight (Ounces): 0.0 Home Health Need/Face to Face Date of Face to Face: December 09, 2022 Clinical Findings: Generalized weakness and fatigue I have seen Pt nojc-wn-[id number]: Yes Discharged To: Home Diagnosis/Conditions: Fever, TKA Patient is Homebound due to: Jagdish fall risk due to instabilty, Muscle weakness Homebound Status Due to the above stated illness, injury or surgical procedure (medical condition or diagnosis) and associated clinical findings, the patient is homebound because of his/her inability to leave home except with aid of a supportive device and/or person AND leaving the home requires a considerable and taxing effort or is medically contraindicated. Pt req the following assistanc: Aid of another person, Walker Home Health Nursing Orders Home Health Services Order: Vice President Of Brand Management-Evaluate & Treat, Physical Therapy-Evaluate & Treat Home Health Infusion Therapy Line Start Date: December 06, 2022 Therapy Orders Therapy Orders: OT (must have SN or PT order), Physical Therapy Therapy Specific Orders: Eval assistive deivces, Teach enviro modifications/safety, Gait training, Increase strength/endurance Certify Stmt I certify that this patient is under my care and that I, a nurse practitioner or a physician; a management assistant working with me, had a face to face encounter that - meets the physician face to face encounter requirements with this patient as dated. CORRIE JACKSON MD December 09, 2022 14:59
[2022-12-09 16:00] VITALS: BP 119/72
[2022-12-09 19:27] VITALS: BP 150/78
[2022-12-09] MEDS: ACETAMINOPHEN 500 MG TAB (TYLENOL) PO PRN (21:00)
[2022-12-09] MEDS ORDERED: TROUGH ORDER-PHARMACY XX NR (23:00)
[2022-12-09 23:35] VITALS: BP 130/75
[2022-12-10] MEDS: NS IV 1000 ML 1,000 ML IV SCH ×2 (00:29→03:00)
[2022-12-10 03:37] VITALS: BP 126/71
[2022-12-10 05:44] LABS: BASOPHILS % (AUTO) 0 % (0-10); HEMOGLOBIN 13.4 g/dL (13.3-17.7); MEAN CORPUSCULAR VOLUME 87 fL (80-99); MONOCYTES # (AUTO) 0.3 10^3/uL (0.0-1.0); MONOCYTES % (AUTO) 12 % (0-12)
[2022-12-10 05:47] LABS: EOSINOPHILS # (AUTO) 0.1 10^3/uL (0.0-0.3); EOSINOPHILS % (AUTO) 2 % (0-10); HEMATOCRIT 40 % (40-54); LYMPHOCYTES # (AUTO) 1.3 10^3/uL (1.0-4.0); LYMPHOCYTES % (AUTO) 47 % (12-44); MEAN CORPUSCULAR HEMOGLOBIN 29 pg (25-34); MEAN CORPUSCULAR HGB CONC 34 g/dL (32-36); MEAN PLATELET VOLUME 9.3 fL (9.0-12.2); NEUTROPHILS # (AUTO) 1.1 10^3/uL (1.8-7.8); NEUTROPHILS % (AUTO) 39 % (42-75); PLATELET COUNT 119 10^3/uL (130-400); WHITE BLOOD COUNT 2.8 10^3/uL (4.3-11.0)
[2022-12-10] MEDS: inSUlin ASPART (NovoLOG) 1 UNIT/0.01 ML (CHARGE PER UNIT) SC SCH ×2 (05:59→11:43)
[2022-12-10 06:04] LABS: CALCIUM 8.4 MG/DL (8.5-10.1); CREATININE SERUM 0.63 MG/DL (0.60-1.30); POTASSIUM 3.1 MMOL/L (3.6-5.0)
[2022-12-10 06:13] LABS: SMEAR SCAN COMMENT YES
[2022-12-10] MEDS: DOXYCYCLINE 100 MG (VIBRAMYCIN) TABLET PO SCH (06:41)
[2022-12-10 07:46] VITALS: BP 124/75
[2022-12-10] MEDS: LACTOBACILLUS ACIDOPHILUS (PROBIOTIC) CAPSULE PO SCH ×2 (08:06→11:43)
[2022-12-10] MEDS: APIXABAN 5 MG (ELIQUIS) TABLET PO SCH (08:06)
--- NOTE | 2022-12-10 08:47 | Physical Therapy Progress Note ---
Therapy Progress Note Patient instructed by this PT to be up independently in room and hallway and to perform HEP. Both patient and spouse voice understanding. Patient will dismiss to home with home health on this date. PT to dismiss patient from services at this time. RUIZ MEHTA PT December 10, 2022 08:47
[2022-12-10] MEDS ORDERED: cefTRIAXone 2,000 MG/NS 50 ML IVPB IV SCH ×2 (09:00)
--- NOTE | 2022-12-10 11:13 | Discharge Summary ---
Diagnosis/Chief Complaint Date of Admission December 07, 2022 at 10:53 Date of Discharge Discharge Date: December 10, 2022 Admission Diagnosis Fever- rule out meningitis Primary Care Neeraj Bustillos MD Discharge Diagnosis (1) AMS (altered mental status) Status: Acute (2) Tick bite Status: Acute (3) Fever Status: Acute (4) Acute deep vein thrombosis (DVT) of popliteal vein of right lower extremity Status: Acute (5) Diabetes type 2, controlled Status: Acute (6) HTN (hypertension) Status: Chronic (7) S/P total knee arthroplasty Status: Acute Discharge Summary Discharge Physical Exam Allergies: Coded Allergies: No Known Drug Allergies (Unverified , 11/03/22) Vitals & I&Os Vital Signs Date Time Temp Pulse Resp B/P (MAP) Pulse Ox O2 Delivery O2 Flow Rate FiO2 12/10/22 11:24 36.5 78 20 136/77 (96) 97 Room Air General Appearance: No Apparent Distress, WD/WN Cardiovascular: Regular Rate, Rhythm, No Murmur Neurologic/Psychiatric: Alert, Oriented x3 Hospital Course Patient was admitted to the hospital secondary to fever and malaise concerning for meningitis. Unfortunately he is on chronic anticoagulation so an LP was not able to be performed but clinically it was not consistent with meningitis. Further history revealed multiple tick bites within the past 10 days. Initial tick panel returned and was negative but with further investigation [facility] he was contacted and test for [place] virus, [place] virus, [place] Nile, and Rickettsia were ordered. Unfortunately Rickettsia was not able to be obtained here. He was treated with doxycycline and did well. On admission he had broad-spectrum antibiotics to cover for meningitis and these were de-escalated. Blood cultures were negative as was urine culture. Oncology was consulted due to his leukop enia. Orthopedic surgery saw him as well given his recent knee replacement. He is to continue on doxycycline upon discharge. He was originally accepted to inpatient rehab but improved rapidly and no longer required intensive therapy. Home health was arranged instead. He was discharged home in stable and improved condition to follow-up with his primary care physician. Both he and Dr. Bustillos are aware that he has outstanding labs through the [facility]. I also informed the infection control nurse should they be sent to the hospital upon resulting. Labs (last 24 hrs) Laboratory Tests 12/09/22 16:40: Glucometer 110 12/09/22 20:03: Glucometer 133H 12/09/22 22:46: Vancomycin Level Trough 7.3L 12/10/22 05:28: White Blood Count 2.8L, Red Blood Count 4.62, Hemoglobin 13.4, Hematocrit 40, Mean Corpuscular Volume 87, Mean Corpuscular Hemoglobin 29, Mean Corpuscular Hemoglobin Concent 34, Red Cell Distribution Width 12.8, Platelet Count 119L, Mean Platelet Volume 9.3, Immature Granulocyte % (Auto) 0, Neutrophils (%) (Auto) 39L, Lymphocytes (%) (Auto) 47H, Monocytes (%) (Auto) 12, Eosinophils (%) (Auto) 2, Basophils (%) (Auto) 0, Neutrophils # (Auto) 1.1L, Lymphocytes # (Auto) 1.3, Monocytes # (Auto) 0.3, Eosinophils # (Auto) 0.1, Basophils # (Auto) 0.0, Immature Granulocyte # (Auto) 0.0, Percent Immature Platelet Fraction 2.3, Sodium Level 140, Potassium Level 3.1L, Chloride Level 103, Carbon Dioxide Level 25, Anion Gap 12, Blood Urea Nitrogen 6L, Creatinine 0.63, Estimat Glomerular Filtration Rate 104, BUN/Creatinine Ratio 10, Glucose Level 107H, Calcium Level 8.4L, Smear Scan YES 12/10/22 05:48: Glucometer 113H 12/10/22 10:10: Glucometer 126H Microbiology 12/07/22 C. difficile GDH Antigen & Toxins - Final, Complete 12/06/22 Urine Culture - Final, Complete NO GROWTH 12/06/22 Blood Culture - Preliminary, Resulted No growth Patient resulted labs reviewed. Pending Labs Laboratory Tests 12/10/22 10:10: Glucometer 126 Imaging: Reviewed Imaging Report Discussion & Recommendations Discharge Planning: >30 minutes discharge planning Discharge Home Medications: Active Scripts Active Ondansetron Odt (Ondansetron) 4 Mg Tab.rapdis 4 Mg SL Q4H PRN Acidophilus-Pectin Capsule (Lactobacillus Acidophilus/Pect) 75 Million Cell-100 Mg Capsule 2 Each PO TIDWM Losartan Potassium 25 Mg Tablet 25 Mg PO DAILY Blood pressure has been controlled so hold for now and check your blood pressures at home, if they start running consistently over 150 on top restart this medicine Jardiance (Empagliflozin) 25 Mg Tablet 25 Mg PO DAILY Check your blood sugars as we talked about and resume this if blood sugars are running over 150 Reported Tylenol Extra Strength (Acetaminophen) 500 Mg Tablet 1,000 Mg PO Q8H PRN Eliquis (Apixaban) 5 Mg Tablet 5 Mg PO BID Doxycycline Hyclate 100 Mg Tablet 100 Mg PO BID FILLED 12-05-2022 #28/14 DAY SUPPLY Lyrica (Pregabalin) 75 Mg Capsule 75 Mg PO HS Instructions to patient/family Please see electronic discharge instructions given to patient. Problem Qualifiers (1) AMS (altered mental status): Altered mental status type: transient alteration of awareness Qualified Codes: R40.4 - Transient alteration of awareness (2) Tick bite: Encounter type: subsequent encounter Site of tick bite: thoracic wall Front or back of thoracic wall: back Thoracic wall location detail: left Qualified Codes: S20.462D - Insect bite (nonvenomous) of left back wall of thorax, subsequent encounter; W57.XXXD - Bitten or stung by nonvenomous insect and other nonvenomous arthropods, subsequent encounter (3) Fever: Fever type: due to other condition Qualified Codes: R50.81 - Fever presenting with conditions classified elsewhere CORRIE JACKSON MD December 10, 2022 11:13
[2022-12-10] MEDS ORDERED: LACT1CAP7 PO (11:19)
[2022-12-10] MEDS ORDERED: LOSA25TA41 PO (11:19)
[2022-12-10] MEDS ORDERED: EMPA25TA PO (11:19)
[2022-12-10 11:24] VITALS: BP 136/77
[2022-12-10] MEDS ORDERED: ONDA4TAB11 SL (14:11)
[2022-12-10 16:23] VITALS: BP 136/77
== END 2022-12-10 16:25 | disposition home health service (06) | DRG 864 ==
LOC: EDUNIT# 09:49 → ER 09:51 → 4TH 13:21 → UNDOADMOB 13:21 → 4TH 13:33 → INTOOBSV 12-07 10:53 → OBSVTOIN 12-07 10:53 → UNDODISIN 12-10 16:25
PROVIDERS: ADMIT Family Medicine; ATTEND Family Medicine
DX: R50.9 Fever, unspecified (principal); R41.82 Altered mental status, unspecified; D70.9 Neutropenia, unspecified; D69.6 Thrombocytopenia, unspecified; S20.462A Insect bite (nonvenomous) of left back wall of thorax, initial encounter; R32 Unspecified urinary incontinence; I10 Essential (primary) hypertension; E11.40 Type 2 diabetes mellitus with diabetic neuropathy, unspecified; G47.30 Sleep apnea, unspecified; F40.240 Claustrophobia; M19.90 Unspecified osteoarthritis, unspecified site; M54.9 Dorsalgia, unspecified; Z79.84 Long term (current) use of oral hypoglycemic drugs; Z79.85 Long-term (current) use of injectable non-insulin antidiabetic drugs; Z86.718 Personal history of other venous thrombosis and embolism; Z79.01 Long term (current) use of anticoagulants; Z96.651 Presence of right artificial knee joint; Z79.899 Other long term (current) drug therapy; W57.XXXA Bitten or stung by nonvenomous insect and other nonvenomous arthropods, initial encounter
CPT/HCPCS: 36415; 70450; 70551; 71045; 80048; 80053; 80202; 81000; 82947; 83605; 83615; 84484; 85007; 85025; 85027; 85379; 85384; 85610; 85652; 85730; 86141; 86788; 86789; 87040; 87088; 87324; 87449; 93005; G0378